=== PATIENT | female | born 1975 | race Hispanic/Latino ===

== ENCOUNTER 2017-06-01 18:06 | Inpatient (IN) | payer OTHER, SELFPAY ==
[2017-06-01] MEDS ORDERED: niCARdipine 20MG In NaCl 20 MG/200 ML BAG ONE (19:21)
[2017-06-01] MEDS ORDERED: diphenhydrAMINE 50 MG/ML VIAL ONE ×2 (19:21→20:20)
[2017-06-01] MEDS ORDERED: Metoclopramide HCl 10 MG/2 ML VIAL ONE (19:21)
[2017-06-01 19:28] LABS: #Eosinphils 0.3 thou/uL (0.0-0.7); #Lymphocytes 3.4 thou/uL (1.20-3.40); #Monocytes 0.7 thou/uL (0.11-0.59); #Neutrophils 7.6 thou/uL (1.40-6.50); %Basophils 0.4 % (0.0-1.0); %Eosinophils 2.7 % (0.0-10.0); %Lymphocytes 28.1 % (21.0-51.0); Hematocrit 34.8 % (36.0-47.0); Mean Platelet Volume 5.9 fL (7.4-10.4); Red Blood Cell (RBC) Count 3.85 mill/uL (4.20-5.40); White Blood Cell (WBC) Count 12.1 thou/uL (4.8-10.8)
[2017-06-01 19:35] LABS: PTT 27.8 SEC (22.9-36.1); Prothrombin Time 13.1 SEC (12.0-14.7)
[2017-06-01 19:52] LABS: ALT (SGPT) 20 U/L (8-55); AST (SGOT) 16 U/L (5-34); Alkaline Phosphatase 112 U/L (40-150); Anion Gap 11 mmol/L (10-20); BUN (Urea Nitrogen) 16 mg/dL (7.0-18.7); Bilirubin, Total 0.3 mg/dL (0.2-1.2); CK (CPK) 114 U/L (29-168); Calc. Creatinine Clearance 0 mL/min (70-130); Carbon Dioxide 28 mmol/L (22-29); Chloride 100 mmol/L (98-107); Estimated GFR-MDRD 63; Globulin 4.4 g/dL (2.4-3.5); Lipase 55 U/L (8-78); Protein, Total 8.5 g/dL (6.0-8.3)
[2017-06-01 19:55] LABS: Bilirubin Negative (Negative); Blood, Urine Large (Negative); Glucose, Urine (Dipstick) 500 mg/dL (Negative); Ketone, Urine Negative (Negative); Nitrite Negative (Negative); Protein, Urine (Dipstick) 100 mg/dL (Neg-Trace); Urobilinogen 0.2 mg/dL (0.2-1.0)
[2017-06-01 19:56] LABS: Bacteria/HPF 4+ HPF (None Seen); Hyaline Casts/LPF 0-3 HYALINE CAST LPF (0-3 Hyaline); RBC/HPF 21-50 HPF (0-3); Squamous Epithelial 0-3 HPF (0-3)
[2017-06-01 19:56] LABS: Troponin I Less than 0.010 ng/mL (< 0.028)
[2017-06-01] MEDS ORDERED: Fentanyl 100 MCG/2 ML VIAL ONE (20:19)
[2017-06-01] MEDS ORDERED: Dexamethasone 10 MG/ML VIAL ONE (20:20)
[2017-06-01] MEDS ORDERED: valACYclovir 500 MG TAB PO SCH (20:45)
--- NOTE | 2017-06-01 21:19 | CT ---
NONCONTRAST HEAD CT: HISTORY: Altered mental status. Right facial pain and numbness since Wednesday. COMPARISON: 01/31/2017 TECHNIQUE: A noncontrast head CT is performed from the skull base to the skull vertex. FINDINGS: No parenchymal hemorrhage. No extraaxial hematoma. No midline shift. The basilar cisterns are adam nt. Brain volume is age appropriate. Cortical rowan white matter differentiation is preserved. The ventricles and sulci are patent and symmetric. The calvarium is intact. Adequate aeration of the sinuses and mastoid air cells. IMPRESSION: No acute intracranial process. POS: [facility]
--- NOTE | 2017-06-01 21:22 | RAD ---
ONE VIEW CHEST: HISTORY: Altered mental status. Facial pain and droop. COMPARISON: 01/13/2015 FINDINGS: Normal cardiac silhouette. The pulmonary vessels and hilum are normal. No mass. No consolidation. No osseous abnormalities or pneumothorax. IMPRESSION: No acute cardiopulmonary process. POS: [facility]
--- NOTE | 2017-06-01 22:46 | PDOC.EVN ---
Event Note - Event Note Event Note: [id number] 1. TIA VS [place] palsy 2. HTN 3. H/O HPL 4. H/O DM type 2 plan: see orders
[2017-06-01] MEDS ORDERED: Ondansetron HCl/PF 4 MG/2 ML Vial IVP PRN (23:11)
[2017-06-01] MEDS ORDERED: hydrALAZINE 20 MG/ML VIAL SLOW IVP PRN (23:11)
[2017-06-01] MEDS ORDERED: Dextrose 5% in Water 1,000 ML IV PRN (23:13)
[2017-06-01] MEDS ORDERED: HumaLOG 300 UNITS/3 ML VIAL SC PRN (23:13)
[2017-06-01] MEDS ORDERED: Dextrose 50% Abboject 50 ML SYRINGE SLOW IVP PRN (23:13)
[2017-06-01] MEDS ORDERED: Sodium Chloride 0.9% 1,000 ML IV SCH (23:15)
[2017-06-02 01:44] VITALS: BMI 33.1
[2017-06-02] MEDS: HumaLOG 300 UNITS/3 ML VIAL SC PRN ×3 (05:56→17:09)
[2017-06-02] MEDS: Acetaminophen 325 MG TAB PO PRN ×3 (06:23→21:35)
--- NOTE | 2017-06-02 07:10 | HP ---
DATE OF ADMISSION: 06/01/2017 CHIEF COMPLAINT: Headache. HISTORY OF PRESENT ILLNESS: Patient is a 41-year-old female who came to the ER complaining of headache. Patient started having headache since Wednesday, headache got worse and the patient started having right-sided facial droop. The patient was having some trouble swallowing also and right side drooling also. Patient says she could not able to close her right eyelid also. Symptoms persisted, so she came to the ER, complaints of headache. Headache is all over mild in intensity, no aggravating or alleviating factors. Denies any nausea. Denies any vomiting. Complains of fatigue also. Denies any chest pain , denies any trouble breathing, denies any dizziness. PAST MEDICAL HISTORY: Hypertension, diabetes type 2, history of cervical CA. Denies any chemoradiation. PAST SURGICAL HISTORY: Hysterectomy. SOCIAL HISTORY: Denies smoking, denies alcohol, denies any drugs. ALLERGIES: Reviewed. REVIEW OF SYSTEMS: Constitutional: Denies any fever, denies any chills. Eyes : Positive for chronic decreased vision in the right eye, currently being followed by electrostatic paint operator. Positive for right eye drooping. Oral cavity: Denies any thrush. Neck: Denies any neck pain. Cardiovascular: Denies any chest pains, denies any palpitations. Respiratory system: Denies any cough, denies sputum production. Gastrointestinal: Denies nausea, vomiting. Cranial nerve system: Positive for headache. Positive for right side facial droop. Psychiatric: Denies anxiety. Integument: Denies any rash. All other review of systems are reviewed and are negative. PHYSICAL EXAMINATION: CONSTITUTIONAL/VITAL SIGNS: At the time of H&P performed, blood pressure is 196 /102, heart rate 81, respiratory rate 18. GENERAL: The patient appears tired. NECK: Supple, no JVD. CARDIOVASCULAR: S1, S2 present, regular rate and rhythm. No murmurs, no rubs, no gallops. RESPIRATORY: No wheezing, no rhonchi. GASTROINTESTINAL: Abdomen is soft, nontender, no guarding, no organomegaly, no masses felt. MUSCULOSKELETAL: No edema. CRANIAL NERVE SYSTEM: Positive for right-sided facial droop present. PSYCHIATRIC: Mood appropriate at this time. INTEGUMENT: No rashes seen. LABORATORY DATA: At the time of H&P performed white count 12.1, hemoglobin 12.3 , platelet count is 481. PT 13.1, INR 1. BMP shows sodium 135, potassium 3.9, chloride 100, CO2 is 28, BUN of 16, creatinine 0.98, albumin 4.1. CT head, no acute stroke seen. ASSESSMENT AND PLAN: The patient is 41-year-old female: 1. Right-sided facial droop need to rule out stroke versus Coronado's palsy. We will go ahead and consult Neurology to evaluate the patient. We will monitor the patient closely. We will do MRI brain and carotid ultrasound also and we will follow the patient. 2. History of hypertension. Monitor blood pressure. Continue blood pressure meds. 3. History of diabetes, type 2. Monitor blood sugars with insulin sliding scale. 4. Headache p.r.n. pain meds. Case was discussed in detail with the patient. The patient is FULL CODE. MTDD
[2017-06-02] MEDS ORDERED: FLU VACC QS2017-18 36 mo. & older 0.5 ML SYRINGE IM ONE (09:00)
[2017-06-02] MEDS ORDERED: ISOVUE-370 76%-LOCM 1 ML ONE (09:42)
--- NOTE | 2017-06-02 09:59 | ULT ---
ULTRASOUND CAROTID DOPPLER STANDARD: HISTORY: Evaluate for stenosis. COMPARISON: None. TECHNIQUE: Real-time, rowan scale, color Doppler, and spectral analysis of the extracranial carotid arteries and vertebral arteries were performed with a linear ray transducer. FINDINGS: Extensive atherosclerotic plaque of the proximal right internal carotid artery. There are elevated p eak systolic velocities proximally 157 cm/s, mid 135 cm/s, and distal 136 cm/s. Antegrade flow right vertebral artery. There is antegrade flow left vertebral artery. The left internal carotid artery does not have an elevated peak systolic velocity. IMPRESSION: 50-69% stenosis of the right internal carotid artery mid to distal. Followup CT angiogram is recomme nded. CODE T POS: [facility]
[2017-06-02] MEDS: Heparin 5,000 UNITS/ML VIAL SC SCH ×2 (10:29→21:37)
[2017-06-02] MEDS: Aspirin 81 mg Enteric Coated Tablet PO SCH (10:30)
--- NOTE | 2017-06-02 10:37 | MRI ---
MRI BRAIN WITHOUT CONTRAST: HISTORY: Altered mental status, right facial pain and numbness. Right eye blindness. FINDINGS: Correlation is made with the CT scan of the previous evening. No restricted diffusion is seen. No evidence of infarct, hemorrhage, midline shift, or abnormal extr aaxial fluid collections are noted. The ventricular size is normal and the basilar cisterns are adam nt. No signal abnormalities are seen on the highly sensitive FLAIR images. IMPRESSION: No evidence of acute intracranial process. POS: [facility]
[2017-06-02] MEDS: cloNIDine 0.1 MG TAB PO PRN ×2 (11:08→21:40)
--- NOTE | 2017-06-02 17:36 | PDOC.PN ---
- Subjective Encounter Start Date: 06/02/17 Encounter Start Time: 17:25 Subjective: f/u for facial asymmetry with initial concern for CVA. MRI brain neg. -: R facial droop persists and likely Ceja's Palsy. - Objective MAR Reviewed: Yes Vital Signs & Weight: Vital Signs (12 hours) Temp Pulse Pulse Pulse Resp BP BP 06/02/17 15:15 98.3 F 95 18 06/02/17 11:25 98.3 F 96 18 06/02/17 11:08 194/104 H 06/02/17 10:25 101 H 101 H 186/95 H 06/02/17 08:24 109 H 102 H 202/105 H 06/02/17 08:00 97.8 F 97 18 06/02/17 07:17 97.8 F 97 18 BP BP Pulse Ox 06/02/17 15:15 158/84 H 98 06/02/17 11:25 154/81 H 100 06/02/17 11:08 06/02/17 10:25 194/104 H 06/02/17 08:24 182/85 H 06/02/17 08:00 99 06/02/17 07:17 159/75 H 99 Weight Admit Weight 181 lb 3.2 oz Weight 181 lb 3.2 oz I&O: 06/01/17 06/02/17 06/03/17 06:59 06:59 06:59 Intake Total 988 Balance 988 Result Diagrams: 06/01/17 19:23 06/01/17 19:23 Additional Labs: Accuchecks 06/02/17 06/02/17 06/02/17 16:54 10:34 05:46 POC Glucose 424 H 371 H 542 H Radiology Reviewed by me: Yes (Carotid sono - R ICA mod stenosis) EKG Reviewed by me: Yes (Tele - SR ) Phys Exam - Physical Examination Constitutional: NAD HEENT: PERRLA, oral pharynx no lesions Neck: no nodes, no JVD, supple Respiratory: no wheezing, clear to auscultation bilateral Cardiovascular: RRR Gastrointestinal: soft, non-tender, no distention, positive bowel sounds Musculoskeletal: no edema, pulses present R facial asymmetry, loss nasolabial fold, minimal eyebrow movement R Neurological: normal sensation, moves all 4 limbs Psychiatric: A&O x 3 Skin: normal turgor, cap refill <2 seconds Dx/Plan (1) Ceja's palsy Code(s): G51.0 - CEJA'S PALSY Status: Acute Comment: House-Brackmann Stage IV-V, Prednisone 60mg daily, Valtrex 1000mg TID, R eye lubricant (2) DM (diabetes mellitus) type II controlled, neurological manifestation Code(s): E11.49 - TYPE 2 DIABETES W OTH DIABETIC NEUROLOGICAL COMPLICATION Status: Acute Comment: check A1C in am, resume home insulin regimen, ADA, accuchecks (3) Obesity (BMI 30.0-34.9) Code(s): E66.9 - OBESITY, UNSPECIFIED Status: Chronic (4) HLD (hyperlipidemia) Code(s): E78.5 - HYPERLIPIDEMIA, UNSPECIFIED Status: Chronic Comment: Statin agent for d/c (5) HTN (hypertension) Code(s): I10 - ESSENTIAL (PRIMARY) HYPERTENSION Status: Chronic Qualifiers: Hypertension type: essential hypertension Qualified Code(s): I10 - Essential (primary) hypertension Comment: Uncontrolled, resume home BP regimen and monitor clinically - Plan plan discussed w/ family, psych social worker, DVT proph w/SCDs Stable overall -: Start Prednisone 60mg daily -: Start Valtrex 1000mg TID -: Saline lock IVF -: Resume home insulin regimen * AM lab: A1C, TSH * Likely home in 24h
[2017-06-02] MEDS: HumaLOG 300 UNITS/3 ML VIAL SC SCH (17:42)
[2017-06-02] MEDS ORDERED: predniSONE 20 MG TAB PO SCH (17:45)
[2017-06-02] MEDS ORDERED: Atorvastatin Calcium 40 MG TAB PO SCH (21:00)
[2017-06-02] MEDS ORDERED: valACYclovir HCl 1 GM TAB PO SCH (21:00)
[2017-06-02] MEDS: valACYclovir 500 MG TAB PO SCH (21:35)
[2017-06-02] MEDS: Insulin Detemir 100 UNITS/ML 50 UNITS in Pre-Filled Syringe 1 EACH SC SCH (21:36)
--- NOTE | 2017-06-02 23:04 | CT ---
EXAM: CT ANGIOGRAM OF THE NECK 06/02/17 HISTORY: Abnormal carotid ultrasound. Possible carotid stenosis. COMPARISON: None. CORRELATION: Carotid artery 06/02/17, brain MRI 06/02/17. TECHNIQUE: CT angiogram of the neck is performed in the axial plane. Sagittal and coronal three dimensional refo rmatted images are submitted for interpretation. FINDINGS: The visualized brain parenchyma and orbits are unremarkable. Adequate aeration of the visualized sinuses and mastoid air cells. Aerodigestive tract is patent. There is no mucosal abnormality. Midline fatty raphae of the tongue is preserved. Epiglottis has a normal caliber. Pre-epiglottic fat is preserved. There is no prevertebral soft tissue swelling. No epidural hematoma. There is moderate central canal stenosis at the C3-C4 level due to disc osteophyte complex. Additional areas of central canal stenosi s are noted due to degenerative disc disease. Foramina appear to be patent. Evaluation is limited by technique. There is symmetric attenuation of the parotid and submandibular gland. Thyroid gland is unremarkable. No evidence of lymphadenopathy by size criteria. Symmetric attenuation of the sternocleidomastoid muscles. Upper mediastinum and lung apices are unremarkable. CT ANGIOGRAM: The aortic arch has an overall normal caliber and luminal diameter. RIGHT CAROTID: The right carotid artery origin has appropriate enhancement and luminal diameter. The innominate mally ry, common carotid artery have appropriate enhancement and luminal diameter. There is calcified and n oncalcified plaque involving the right carotid bifurcation and proximal internal carotid artery. Ther e appears to be short segment moderate stenosis based upon NASCET criteria. Mid and distal right inte rnal carotid artery have appropriate enhancement and luminal diameter. LEFT CAROTID: The left carotid artery origin has appropriate enhancement and luminal diameter. There is calcified a nd non calcified plaque in the distal left common carotid artery. No significant stenosis based upon NASCET criteria. Left internal carotid artery and left carotid bifurcation have appropriate enhanceme nt and luminal diameter. Both cervical vertebral arteries are patent throughout their course in the neck. Bilateral subclavian arteries are patent. IMPRESSION: Short segment moderate stenosis involving the right carotid bifurcation and proximal internal carotid artery, based upon NASCET criteria. POS: [facility]
[2017-06-02] MEDS: Valproate Sodium 500 MG in Sodium Chloride 0.9% 100 ML IVPB SCH (23:49)
[2017-06-03 04:25] LABS: Hemoglobin A1c 7.8 % (4.0-6.0)
--- NOTE | 2017-06-03 05:57 | CON ---
DATE OF CONSULTATION: 06/02/2017 REFERRING PROVIDER: Melchor Wahl MD REASON FOR CONSULTATION: Left-sided facial numbness and left facial droop along with severe headache . HISTORY OF PRESENT ILLNESS: Ms. Shelton is a pleasant 41-year-old female who has been co nsulted for evaluation of left facial numbness and weakness. History has been translated by one of t nursing staff who speaks Kinyarwanda. The patient is not even speaking Kinyarwanda. The patient reports that on yesterday she developed severe headache in bifrontal region radiating to the back of the head . She also noted numbness and tingling on the left side of the face as well as left eye blurry visio n. She also developed left facial droop, which prompted her to come to the [facility] for further evaluation. She states that she does have a history of migraine type headaches. She re ports her numbness and facial droop is much improved; however, she continues to have headache. She d enies tinnitus, hearing changes, lightheadedness, dizziness, vertigo, neck pain, chest pain, or palpi tations. PAST MEDICAL HISTORY: Significant for hypertension, diabetes, history of cervical cancer. PAST SURGICAL HISTORY: Significant for hysterectomy. SOCIAL HISTORY: She denies smoking, alcohol use, or illicit drug use. CURRENT MEDICATIONS: Please review MAR. ALLERGIES: Include MORPHINE. REVIEW OF SYSTEMS: As mentioned in the HPI, otherwise negative. PHYSICAL EXAMINATION: VITAL SIGNS: Blood pressure of 158/84, pulse of 95, temperature of 98.3, respirations of 18, O2 sats of 98% on room air. GENERAL: Well-developed, well-nourished female, in no apparent distress. RESPIRATORY: Clear to auscultation bilaterally. CARDIOVASCULAR: Regular rate and rhythm. NEUROLOGIC: Mental status: The patient is awake, alert, oriented x3. Speech and language: Fluent speech. Cranial nerves: Pupils are 3 mm and reactive. Visual ordonez are intact. External muscles are intact. No nystagmus noted. Face is symmetric. Tongue and uvula are midline. Motor exam showe d normal tone and bulk with 5/5 strength in both upper and lower extremities. Sensory: Sensation is intact and symmetric. Deep tendon reflexes 2+ reflexes in both upper and lower extremities. Babins ki: Plantar responses flexion bilaterally. Coordination intact to [id number] and finger tap ping bilaterally. LABORATORY DATA: I reviewed, which included CBC, coag panel, CMP, lipid profile, and urinalysis, [facility] is significant for WBC of 12.1, platelets 481. Glucose of 405. Sodium of 135, total cholesterol of 224, LDL of 148, HDL of 42, and triglycerides of 142, otherwise negative. IMAGING STUDIES: MRI brain without contrast was reviewed, which showed no acute intracranial abnorma lity. Carotid Dopplers also reviewed, which showed 50% to 69% stenosis of the right internal carotid artery. Echocardiogram results were reviewed, which showed an ejection fraction of 60% to 65% with mildly elevated pulmonary artery pressure and mild tricuspid regurgitation, otherwise normal. IMPRESSION: 1. Hypertensive urgency. 2. Possible complicated migraine. Ms. Shelton is a pleasant 41-year-old female who presented with the left-sided facial num bness and weakness along with headache and blurry vision. Her blood pressure was noted to be signifi cantly elevated on arrival. Her symptoms may have been suggestive of hypertensive urgency. This cou ld also be seen in complicated migraine. I will give her a dose of Depacon 500 mg IV every 12 hours for 2 doses to see if that help to improves her headaches and paresthesia on the left side of the fac e. Her carotid Dopplers did show 50% to 69% stenosis of the right for which I want to obtain a CT angiogram of the neck. If the CT angiogram of the neck shows right internal carotid artery steno sis less than 50%, then no further workup is needed. She would benefit from aspirin 81 mg daily for secondary stroke prevention. The patient can be seen as an outpatient in my clinic if her symptoms a re not improving. Thank you for your consultation.
[2017-06-03] MEDS: HumaLOG 300 UNITS/3 ML VIAL SC PRN (06:24)
[2017-06-03] MEDS ORDERED: predniSONE 20 MG TAB PO SCH (08:00)
[2017-06-03 08:14] VITALS: BP 159/81; TEMP 98.4
[2017-06-03] MEDS: Insulin Detemir 100 UNITS/ML 50 UNITS in Pre-Filled Syringe 1 EACH SC SCH (09:53)
[2017-06-03] MEDS: valACYclovir 500 MG TAB PO SCH (09:54)
[2017-06-03] MEDS: HumaLOG 300 UNITS/3 ML VIAL SC SCH (09:54)
[2017-06-03] MEDS: Heparin 5,000 UNITS/ML VIAL SC SCH (09:54)
[2017-06-03] MEDS: Aspirin 81 mg Enteric Coated Tablet PO SCH (09:55)
[2017-06-03] MEDS: Valproate Sodium 500 MG in Sodium Chloride 0.9% 100 ML IVPB SCH (09:56)
--- NOTE | 2017-06-03 10:47 | DIS ---
DATE OF ADMISSION: 06/02/2017 DATE OF DISCHARGE: 06/03/2017 DISCHARGE DIAGNOSES: 1. 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 2. Diabetes mellitus type 2, insulin requiring, labile. 3. Hyperlipidemia. 4. Hypertension. 5. Morbid obesity. CONSULTATION: Dr. Halina Henson with Neurology Service. PERTINENT LABORATORY DATA AND X-RAY FINDINGS: Basic metabolic profile within normal limits. Hemoglo bin A1c is 7.8. LFTs within normal limits. BNP 59, albumin 4.1, total cholesterol 224, triglyceride s 142, HDL 42, and LDL 148. Lipase 55. TSH 0.82. Serum beta-hCG negative on 06/02/2017. CBC showe d a white blood cell count of 12.1, hemoglobin 12, hematocrit 35, platelet count 481. PT 13.1, INR 1 .0, PTT 27.8. CT of the brain without contrast showed no acute intracranial process. Portable chest x-ray dated 06/01/2017 showed no acute cardiopulmonary process. MRI of the brain dated 06/02/2017 s howed no acute intracranial process. A 2D transthoracic echocardiogram dated 06/02/2017 showed an ej ection fraction of 60%-65%. Negative study. CT angiogram of the neck dated 06/02/2017 showed modera te stenosis of the right carotid bifurcation and proximal internal carotid artery. Carotid Doppler s tudy dated 06/02/2017 showed 50%-69% stenosis of the right internal carotid artery. HOSPITAL COURSE: Patient was admitted to the stroke unit after initially presenting with right-sided facial droop with some associated headache and difficulty swallowing. The patient underwent general stroke protocol including multiple neuro imaging studies showing no acute intracranial process or ev idence of CVA. The patient persisted with right-sided facial droop concerning for Coronado's palsy. The patient was initiated on prednisone 60 mg daily in addition to Valtrex 1000 mg p.o. t.i.d. The gabriela ent was evaluated by the Neurology Service with recommendations for a trial of Depacon after concern for complicated migraine component. The patient continued with right facial asymmetry throughout the hospital course without significant improvement by the time of discharge. The patient was initiated on aspirin 81 mg daily for secondary stroke prevention given patient's multiple risk factors includi ng diabetes mellitus type 2, hypertension, and hyperlipidemia. Overall, the patient remained clinica lly stable through the remainder of the hospital course and ready for discharge on 06/03/2017. DISCHARGE MEDICATIONS: 1. Enteric coated aspirin 81 mg 1 tablet p.o. daily. 2. Lipitor 40 mg p.o. at bedtime. 3. Levemir 50 units subcutaneously b.i.d. 4. NovoLog 10 units subcutaneously b.i.d. 5. Prednisone 20 mg 3 tablets p.o. daily x3 days, followed by 2 tablets p.o. daily x3 days, followed by 1 tablet p.o. daily x3 days. 6. Valtrex 1000 mg p.o. t.i.d. x7 days. FOLLOWUP: The patient may follow up with her primary care provider, Marcia Rai within 7 days. T he patient will follow up with Dr. Halina Henson with Neurology Service within 7 days. CONDITION ON DISCHARGE: Stable. ACTIVITY: Ad pascual. DIET: Heart healthy and ADA. CODE STATUS: FULL. DISPOSITION: Home on 06/03/2017. Total time preparing and coordinating discharge is 34 minutes.
--- NOTE | 2017-06-21 13:54 | EKG ---
Test Reason : HTN Blood Pressure : / mmHG Vent. Rate : 105 BPM Atrial Rate : 105 BPM P-R Int : 148 ms QRS Dur : 080 ms QT Int : 348 ms P-R-T Axes : 047 017 032 degrees QTc Int : 459 ms Sinus tachycardia Anterior infarct , age undetermined Abnormal ECG Confirmed by SERGEY GARCIA, DEANNA (12), film editor supervisor EMIR GIL ([id number]) on 06/21/2017 1:52:39 PM Referred By: Confirmed By:DEANNA RINCON MD
== END 2017-06-03 11:48 | disposition home or self-care (01) | DRG 74 ==
LOC: ERS 18:06 → 2SE 06-02 00:11
PROVIDERS: ADMIT Internal Medicine; ATTEND Internal Medicine
DX: G51.0 Bell's palsy (principal); E11.49 Type 2 diabetes mellitus with other diabetic neurological complication; E66.01 Morbid (severe) obesity due to excess calories; I16.0 Hypertensive urgency; I10 Essential (primary) hypertension; Z79.4 Long term (current) use of insulin; E78.5 Hyperlipidemia, unspecified; Z68.33 Body mass index [BMI] 33.0-33.9, adult; G43.109 Migraine with aura, not intractable, without status migrainosus; I65.21 Occlusion and stenosis of right carotid artery
CPT/HCPCS: 36415; 36416; 70450; 70498; 70551; 71010; 80053; 80061; 81003; 81015; 82553; 83036; 83690; 83880; 84443; 84484; 84703; 85025; 85610; 85730; 93005; 93306; 93880; 96365; 96368; 96375; 96376; G8978-GP-CI; G8979-GP-CI; G8980-GP-CI; G8987-GO-CI; G8988-GO-CI; G8989-GO-CI; G8996-GN-CI; G8997-GN-CI; J1100; J1200; J1644; J1815; J2765; J3010; J7050; J7506

== ENCOUNTER 2017-09-28 01:50 | Emergency (ER) | payer SELFPAY ==
[2017-09-28] MEDS ORDERED: Sucralfate 1 GM/10 ML UDCUP ONE (02:48)
[2017-09-28] MEDS ORDERED: Milk Of Magnesia 30 ML UDCUP ONE (02:48)
[2017-09-28] MEDS ORDERED: Ondansetron ODT 4 MG TAB ONE (02:48)
[2017-09-28] MEDS ORDERED: Famotidine 20 MG TAB ONE (02:48)
[2017-09-28] MEDS ORDERED: Lidocaine 2% Viscous Solution 10 ML, Aluminum & Magnesium Hydroxide 20 ML, Donnatal Eli... SSW SCH (03:00)
[2017-09-28 03:17] LABS: #Basophils 0.1 thou/uL (0.0-0.2); #Eosinphils 0.3 thou/uL (0.0-0.7); #Lymphocytes 3.4 thou/uL (1.20-3.40); #Monocytes 0.8 thou/uL (0.11-0.59); #Neutrophils 7.5 thou/uL (1.40-6.50); %Basophils 0.7 % (0.0-1.0); %Eosinophils 2.7 % (0.0-10.0); %Lymphocytes 28.2 % (21.0-51.0); %Monocytes 6.4 % (0.0-10.0); Hemoglobin 11.7 g/dL (12.0-16.0); Mean Corpuscular HGB CONC 35.7 g/dL (32.0-36.0); Mean Corpuscular Hemoglobin 31.1 pg (27.0-31.0); Mean Corpuscular Volume 87.1 fl (81.0-99.0); Mean Platelet Volume 5.9 fL (7.4-10.4); Platelet Count 473 thou/uL (130-400); RBC Distribution Width 11.1 % (11.5-14.5); Red Blood Cell (RBC) Count 3.76 mill/uL (4.20-5.40)
[2017-09-28 03:29] LABS: BHCG - Serum Negative (NEGATIVE); Pregs Control Background? CLEAR/WHITE (CLR/WHITE); Pregs Control Bar Appear? YES (CONTROL BAR)
[2017-09-28 03:38] LABS: ALT (SGPT) 13 U/L (8-55); AST (SGOT) 12 U/L (5-34); Albumin 3.8 g/dL (3.5-5.0); Alkaline Phosphatase 85 U/L (40-150); Anion Gap 10 mmol/L (10-20); BUN (Urea Nitrogen) 18 mg/dL (7.0-18.7); Bilirubin, Total 0.3 mg/dL (0.2-1.2); CK (CPK) 125 U/L (29-168); Calc. Creatinine Clearance 0 mL/min (70-130); Calcium 9.4 mg/dL (7.8-10.44); Carbon Dioxide 26 mmol/L (22-29); Chloride 103 mmol/L (98-107); Estimated GFR-MDRD 74; Globulin 3.4 g/dL (2.4-3.5); Glucose 108 mg/dL (70-105); Lipase 46 U/L (8-78); Potassium 4.2 mmol/L (3.5-5.1); Protein, Total 7.2 g/dL (6.0-8.3); Sodium 135 mmol/L (136-145)
[2017-09-28 03:41] LABS: CKMB 1.1 ng/mL (0-6.6); Troponin I Less than 0.010 ng/mL (< 0.028)
--- NOTE | 2017-10-29 14:58 | EKG ---
Test Reason : Blood Pressure : / mmHG Vent. Rate : 083 BPM Atrial Rate : 083 BPM P-R Int : 140 ms QRS Dur : 076 ms QT Int : 376 ms P-R-T Axes : 016 012 030 degrees QTc Int : 441 ms Normal sinus rhythm Normal ECG Confirmed by SERGEY GARCIA, DEANNA (12), news editor EMIR GIL ([id number]) on 10/29/2017 2:57:28 PM Referred By: Confirmed By:DEANNA RINCON MD
== END 2017-09-28 04:20 | disposition home or self-care (01) ==
LOC: ERS 01:50
DX: K21.0 Gastro-esophageal reflux disease with esophagitis (principal); E11.9 Type 2 diabetes mellitus without complications; Z79.899 Other long term (current) drug therapy; Z85.41 Personal history of malignant neoplasm of cervix uteri
CPT/HCPCS: 36415; 80053; 82553; 83690; 84484; 84703; 85025; 93005; Q0162

== ENCOUNTER 2018-02-15 15:38 | Emergency (ER) | payer SELFPAY ==
[2018-02-15 16:36] LABS: #Eosinphils 0.1 thou/uL (0.0-0.7); #Lymphocytes 1.7 thou/uL (1.20-3.40); #Monocytes 0.5 thou/uL (0.11-0.59); #Neutrophils 6.2 thou/uL (1.40-6.50); %Basophils 0.6 % (0.0-1.0); %Eosinophils 0.9 % (0.0-10.0); %Lymphocytes 19.9 % (21.0-51.0); %Monocytes 5.8 % (0.0-10.0); %Neutrophils 72.9 % (42.0-75.0); Hemoglobin 10.7 g/dL (12.0-16.0); Mean Corpuscular HGB CONC 36.7 g/dL (32.0-36.0); Mean Corpuscular Hemoglobin 32.5 pg (27.0-31.0); Mean Corpuscular Volume 88.5 fL (78.0-98.0); Platelet Count 389 thou/uL (130-400); RBC Distribution Width 11.1 % (11.5-14.5); Red Blood Cell (RBC) Count 3.29 mill/uL (4.20-5.40); White Blood Cell (WBC) Count 8.5 thou/uL (4.8-10.8)
[2018-02-15 16:57] LABS: ALT (SGPT) 309 U/L (8-55); AST (SGOT) 499 U/L (5-34); Albumin 3.6 g/dL (3.5-5.0); Alkaline Phosphatase 189 U/L (40-150); Anion Gap 11 mmol/L (10-20); BUN (Urea Nitrogen) 19 mg/dL (7.0-18.7); Bilirubin, Total 0.5 mg/dL (0.2-1.2); Calc. Creatinine Clearance 0 mL/min (70-130); Calcium 8.8 mg/dL (7.8-10.44); Carbon Dioxide 27 mmol/L (22-29); Chloride 102 mmol/L (98-107); Estimated GFR-MDRD 58; Globulin 3.4 g/dL (2.4-3.5); Glucose 287 mg/dL (70-105); Lipase 87 U/L (8-78); Sodium 136 mmol/L (136-145)
[2018-02-15 18:14] LABS: Bilirubin Negative (Negative); Blood, Urine Moderate (Negative); Clarity CLOUDY (Clear); Glucose, Urine (Dipstick) 250 mg/dL (Negative); Leukocyte Moderate (Negative); Nitrite Negative (Negative); Protein, Urine (Dipstick) 100 mg/dL (Neg-Trace); Specific Gravity, Urine 1.039 (1.002-1.036)
[2018-02-15] MEDS ORDERED: Ondansetron ODT 4 MG TAB ONE (18:14)
[2018-02-15] MEDS ORDERED: Dicyclomine 20 MG TAB ONE (18:14)
[2018-02-15 18:16] LABS: Bacteria/HPF 4+ HPF (None Seen); Hyaline Casts/LPF 0-3 HYALINE CAST LPF (0-3 Hyaline); WBC/HPF 21-50 HPF (0-3)
[2018-02-15 18:17] LABS: Pregnancy Test - Urine (BHCG) Negative (Negative); Pregu Control Background? CLEAR/WHITE (CLR/WHITE); Pregu Control Bar Appear? YES (CONTROL BAR); Specific Gravity 1.039 (1.002-1.036)
--- NOTE | 2018-02-15 18:26 | RAD ---
CHEST ONE VIEW: 02/15/18 HISTORY: Nausea and vomiting. COMPARISON: Chest radiograph 06/01/17. FINDINGS: The lungs are clear. No pneumothorax or effusion. The cardiac silhouette and mediastinal contours are within normal limits. IMPRESSION: No acute intrathoracic abnormality. POS: [facility]
[2018-02-15 18:47] LABS: CKMB 1.2 ng/mL (0-6.6); Troponin I Less than 0.010 ng/mL (< 0.028)
--- NOTE | 2018-02-15 21:28 | ULT ---
ULTRASOUND GALLBLADDER RIGHT UPPER QUADRANT 02/15/18 HISTORY: Abdominal pain. Right upper quadrant pain. COMPARISON: None. TECHNIQUE: Real time rowan scale and color evaluation of the right upper quadrant of the abdomen was performed. FINDINGS: The visualized portions of the pancreatic body is unremarkable. Mild increased hepatic echotexture. L iver measures 15 cm in length. Portal vein is patent with antegrade flow. Common bile duct measures 4 mm. Gallbladder wall thickness is normal. There appears to be stones throughout the contracted gallbladde r. Sonographic Pope's sign is negative. The right kidney measures 10.5 x 5.3 x 4.1 cm without mass, hydronephrosis or abnormal calcifications . IMPRESSION: Cholelithiasis without ultrasound evidence of acute cholecystitis. POS: [facility]
== END 2018-02-15 21:30 | disposition home or self-care (01) ==
LOC: ERS 15:38
DX: K80.20 Calculus of gallbladder without cholecystitis without obstruction (principal); R79.89 Other specified abnormal findings of blood chemistry; E11.9 Type 2 diabetes mellitus without complications
CPT/HCPCS: 36415; 71045; 76705; 80053; 81003; 81015; 81025; 82553; 83690; 84484; 85025; 93005; Q0162

== ENCOUNTER 2018-05-20 04:01 | Observation (INO) | payer SELFPAY ==
[2018-05-20 04:30] LABS: #Eosinphils 0.2 thou/uL (0.0-0.7); #Lymphocytes 2.8 thou/uL (1.20-3.40); #Monocytes 0.7 thou/uL (0.11-0.59); #Neutrophils 7.3 thou/uL (1.40-6.50); %Basophils 0.4 % (0.0-1.0); %Eosinophils 1.9 % (0.0-10.0); %Lymphocytes 25.7 % (21.0-51.0); %Monocytes 6.2 % (0.0-10.0); %Neutrophils 65.8 % (42.0-75.0); Hemoglobin 12.2 g/dL (12.0-16.0); Mean Corpuscular HGB CONC 34.9 g/dL (32.0-36.0); Mean Corpuscular Hemoglobin 30.7 pg (27.0-31.0); Mean Corpuscular Volume 88.1 fL (78.0-98.0); Mean Platelet Volume 6.4 fL (7.4-10.4); Platelet Count 549 thou/uL (130-400); RBC Distribution Width 10.8 % (11.5-14.5); Red Blood Cell (RBC) Count 3.97 mill/uL (4.20-5.40)
[2018-05-20] MEDS ORDERED: Famotidine/PF 20 mg/2ml Vial ONE ×2 (04:38→12:30)
[2018-05-20] MEDS ORDERED: Ondansetron PF 4 MG/2 ML Vial ONE ×2 (04:38→13:14)
[2018-05-20 04:52] LABS: ALT (SGPT) 22 U/L (8-55); AST (SGOT) 42 U/L (5-34); Alkaline Phosphatase 94 U/L (40-150); Anion Gap 12 mmol/L (10-20); BUN (Urea Nitrogen) 22 mg/dL (7.0-18.7); Bilirubin, Total 0.3 mg/dL (0.2-1.2); Calc. Creatinine Clearance 0 mL/min (70-130); Calcium 9.5 mg/dL (7.8-10.44); Carbon Dioxide 24 mmol/L (22-29); Chloride 102 mmol/L (98-107); Estimated GFR-MDRD 54; Glucose 115 mg/dL (70-105); Lipase 86 U/L (8-78); Potassium 4.2 mmol/L (3.5-5.1); Sodium 134 mmol/L (136-145)
[2018-05-20 05:05] LABS: CKMB 1.1 ng/mL (0-6.6); Troponin I Less than 0.010 ng/mL (< 0.028)
[2018-05-20] MEDS ORDERED: hydrALAZINE 20 MG/ML VIAL ONE (05:30)
[2018-05-20] MEDS ORDERED: Fentanyl 100 MCG/2 ML VIAL ONE ×4 (05:30→14:13)
[2018-05-20] MEDS ORDERED: Dextrose 5 %-0.45 % NaCl 1,000 ML IV SCH (06:00)
[2018-05-20] MEDS ORDERED: Fentanyl 100 MCG/2 ML VIAL SLOW IVP PRN ×2 (08:18)
[2018-05-20] MEDS ORDERED: Dextrose 5% in Water 1,000 ML IV PRN ×2 (08:20→14:46)
[2018-05-20] MEDS ORDERED: Dextrose 50% Abboject 50 ML SYRINGE SLOW IVP PRN ×2 (08:20→14:46)
[2018-05-20] MEDS ORDERED: Ondansetron PF 4 MG/2 ML Vial IVP PRN (08:20)
--- NOTE | 2018-05-20 09:34 | RAD ---
PORTABLE CHEST: HISTORY: Left-sided chest pain. COMPARISON: 02/15/2018 study. FINDINGS: Heart size and mediastinum are within normal limits. The lungs are clear of infiltrates. No bony fi ndings. IMPRESSION: No active intrathoracic disease. POS: [facility]
--- NOTE | 2018-05-20 09:36 | ULT ---
PRELIMINARY REPORT/[facility]/EMERGENTY AFTER-HOURS PROCEDURE US Abdomen Limited, Right Upper Quadrant EXAM DATE/TIME: 05/20/2018 4:54 AM CLINICAL HISTORY: 42 years old, female; Pain and signs and symptoms; Nausea and vomiting; Abdominal pain; Localized; Ri ght upper quadrant (ruq); Patient HX: Ruq pain - radiates to back TECHNIQUE: Real-time ultrasound of the abdomen with image documentation. Examination was focused on the right up per quadrant. COMPARISON: No relevant prior studies available. FINDINGS: Liver: Liver demonstrates fatty infiltration without visible focal mass. Gallbladder: Gallbladder demonstrates stones but is without wall thickening or pericholecystic fluid. Common bile duct: 6 mm. No stones. Pancreas: Visualized pancreas is unremarkable. Right kidney: Mild pelviectasis. No mass. No hydronephrosis. IMPRESSION: Cholelithiasis without other findings of cholecystitis. Fatty liver. Mild right renal pelviectasis. No visible stone. Thank you for allowing us to participate in the care of your patient. Dictated and Authenticated by: Tim Reynoso MD 05/20/2018 5:21 AM Central Time ([place] & [place]) FINAL REPORT SONOGRAM RIGHT UPPER QUADRANT: DATE: 05/20/2018. TIME: Performed on an emergency basis at 0455 hours. HISTORY: Right upper quadrant pain. FINDINGS: Agree with the preliminary report by Dr. Reynoso from [facility]. Gallstones are confirmed w ithout sonographic evidence of acute cholecystitis. There is minimal distention of the calyces of th e right kidney. POS: [facility]
[2018-05-20] MEDS ORDERED: CEFAZOLIN 2 GM/50 ML BAG ONE (10:58)
[2018-05-20] MEDS ORDERED: Bupivacaine/Epinephrine 0.25% 30 ML VIAL ONE (12:29)
[2018-05-20] MEDS ORDERED: Iothalamate Meglumine 60% 50 ML VIAL FS ONE (13:01)
[2018-05-20] MEDS ORDERED: Lidocaine 1% PF 5 ML VIAL ONE (13:14)
[2018-05-20] MEDS ORDERED: Metoclopramide HCl 10 MG/2 ML VIAL ONE (13:14)
[2018-05-20] MEDS ORDERED: Glycopyrrolate 0.2 MG/ML 5 ML SYRINGE ONE (13:14)
[2018-05-20] MEDS ORDERED: PROPOFOL 200 MG/20 ML VIAL ONE (13:14)
[2018-05-20] MEDS ORDERED: Ketorolac Tromethamine 30 MG/ML VIAL ONE (13:14)
[2018-05-20] MEDS ORDERED: Promethazine HCl 25 MG/ML VIAL SLOW IVP PRN (13:38)
[2018-05-20] MEDS ORDERED: Promethazine HCl 25 MG/ML VIAL IM PRN ×2 (13:38→14:46)
[2018-05-20] MEDS ORDERED: Ondansetron HCl/PF 4 MG/2 ML Vial IVP PRN (13:38)
--- NOTE | 2018-05-20 14:01 | OP ---
DATE OF PROCEDURE: 05/20/2018 PREOPERATIVE DIAGNOSIS: Acute cholecystitis. POSTOPERATIVE DIAGNOSIS: Acute cholecystitis. PROCEDURE PERFORMED: Laparoscopic cholecystectomy with intraoperative cholangiogram. SURGEON: Teddy Esposito M.D. ANESTHESIA: General. ESTIMATED BLOOD LOSS: Minimal. COMPLICATIONS: None. SPECIMEN: Gallbladder. FINDINGS: Normal cholangiogram. TECHNIQUE: The patient was taken to the operating room and placed supine on the table. After genera l anesthetic was obtained, the abdomen is prepped and draped in a sterile fashion. Incision was made above the umbilicus. Cautery was used to dissect down to and score the fascia. Abdominal cavity en tered bluntly using a Rosette clamp. Holding stitch of PDS was placed on each side of the fascia. Has sandoval trocar was placed. High-flow pneumoperitoneum was obtained. An upper midline 5 mm port and 2 ri ght upper quadrant 5 mm port was placed under direct visualization. Gallbladder was retracted from g allbladder fossa. Peritoneum was opened anterior and posteriorly. The critical view triangle was se en showing only the cystic duct and cystic artery branching medial to lateral, no other branching str uctures. A clip was placed high on the cystic duct and a small ductotomy was made just proximal to t hat. Cholangiocatheter was brought in through a separate stab incision, placed in the cystic duct an d a cholangiogram was performed which shows good contrast flow into the duodenum, right and left hepa tic duct system without obstruction. The cholangiocatheter was removed and 2 clips were placed proxi waldemar on the cystic duct and it was cut using laparoscopic scissors. Cystic artery was taken using t wo clips proximal, one clip distally, and cut using laparoscopic scissors. Cautery was used to disse ct the gallbladder out of the gallbladder fossa. Gallbladder was placed in an Endo catch bag and bro ught out through the Munoz. There was no bleeding in the liver bed. All port sites were infiltrate d using local anesthetic. All ports were removed under camera visualization without bleeding. Pneum operitoneum was let down. PDS was used to close the fascial defect above the umbilicus. All incisio ns were irrigated and closed using 4-0 Monocryl and Dermabond. The patient was en route to recovery in stable condition. All instrument counts, needle counts, and lap counts were correct.
[2018-05-20] MEDS ORDERED: Mag-Al 1200 mg/1200 mg/30 ML UDCUP PO PRN (14:46)
[2018-05-20] MEDS ORDERED: Calcium Carbonate 500 MG ChewTAB PO PRN (14:46)
[2018-05-20] MEDS ORDERED: traMADol HCl 50 MG TAB PO PRN (14:46)
[2018-05-20] MEDS ORDERED: hydrALAZINE 20 MG/ML VIAL SLOW IVP PRN (14:46)
--- NOTE | 2018-05-20 14:50 | HP ---
DATE OF ADMISSION: 05/20/2018 CHIEF COMPLAINT: Right upper quadrant pain. HISTORY OF PRESENT ILLNESS: This is a 42-year-old female with a history of insulin-dependent diabete s who presents with severe pain in the right upper quadrant, described as 8/10 and sharp, radiates ar ound to her right back. This is her third episode she has been coming to the ER for these symptoms, associated with nausea, no vomiting, no change in stools. No history of jaundice or pancreatitis. PAST MEDICAL HISTORY: Includes insulin-dependent diabetes. PAST SURGICAL HISTORY: Hysterectomy. MEDICINES TAKEN DAILY: Insulin. ALLERGIES: MORPHINE, HYDROCODONE. SOCIAL HISTORY: No smoking, alcohol or other drugs. REVIEW OF SYSTEMS: Ten system review of systems otherwise negative unless described above. PHYSICAL EXAMINATION: HEENT: Sclerae are anicteric. Oropharynx clear. NECK: No lymphadenopathy. CHEST: Clear. HEART: Regular rate and rhythm. ABDOMEN: Soft, tender in the right upper quadrant, localized guarding, no rebound, no abdominal or i nguinal hernias. EXTREMITIES: No ischemia or edema to extremities. LABORATORY AND X-RAY FINDINGS: White cell count is 11, hemoglobin is 12, platelet count is 549,000. Sodium 134, potassium is 4.2, creatinine 1.12. Liver function tests are normal except for AST of 42 . IMAGING: Ultrasound shows gallstones, common bile duct 6 mm. ASSESSMENT: Acute cholecystitis. PLAN: Laparoscopic cholecystectomy. Risks, benefits and alternatives discussed. She gives consent. We will do this today.
--- NOTE | 2018-05-20 14:53 | RAD ---
TWO VIEWS FROM AN INTRAOPERATIVE CHOLANGIOGRAM: INDICATION: Cholecystectomy. FINDINGS: Total fluoroscopic time was 0.07 seconds. Total exposure was 1.59 gm. The 2 submitted images demons trate contrast opacification of the right and left intrahepatic bowel duct, common hepatic duct, and common bile duct without evidence of intraluminal filling defect. There is contrast flowing into the duodenum. IMPRESSION: No evidence to suggest retained stone within the common bile duct. Contrast is free flowing within t he duodenum. POS: [facility]
[2018-05-20] MEDS: Sodium Chloride 0.9% 1,000 ML IV SCH (16:06)
[2018-05-20 17:15] VITALS: BMI 30.4
[2018-05-20] MEDS: Ondansetron PF 4 MG/2 ML Vial IVP PRN (17:42)
[2018-05-20] MEDS: HumaLOG 300 UNITS/3 ML VIAL SC PRN (17:47)
[2018-05-20] MEDS: Famotidine/PF 20 mg/2ml Vial SLOW IVP SCH (21:58)
[2018-05-20] MEDS: Famotidine 20 MG TAB PO SCH (21:58)
[2018-05-21] MEDS: Sodium Chloride 0.9% 1,000 ML IV SCH (05:56)
[2018-05-21] MEDS: HumaLOG 300 UNITS/3 ML VIAL SC PRN (06:11)
[2018-05-21] MEDS: Ondansetron PF 4 MG/2 ML Vial IVP PRN (06:11)
[2018-05-21] MEDS: Famotidine/PF 20 mg/2ml Vial SLOW IVP SCH (08:18)
[2018-05-21] MEDS: Famotidine 20 MG TAB PO SCH (08:18)
[2018-05-21 09:10] VITALS: BP 148/85; TEMP 98
--- NOTE | 2018-05-21 09:13 | DIS ---
DATE OF ADMISSION: 05/20/2018 DATE OF DISCHARGE: 05/21/2018 ADMISSION DIAGNOSES: Acute cholecystitis and insulin-dependent diabetes. DISCHARGE DIAGNOSES: Acute cholecystitis and insulin-dependent diabetes. PROCEDURES: Laparoscopic cholecystectomy with intraoperative cholangiogram by Dr. Esposito without co mplication. CONDITION AT DISCHARGE: Improved. HOSPITAL COURSE: On postop day #1, the patient is doing well. She is tolerating diabetic diet. Her pain is controlled. She is discharged home. She will follow up with me in 2 weeks.
--- NOTE | 2018-05-28 15:29 | EKG ---
Test Reason : Blood Pressure : / mmHG Vent. Rate : 088 BPM Atrial Rate : 088 BPM P-R Int : 144 ms QRS Dur : 078 ms QT Int : 350 ms P-R-T Axes : 008 014 022 degrees QTc Int : 423 ms Normal sinus rhythm Normal ECG Confirmed by ANATOLY LOVETT DO ([id number]), field map editor EMIR GIL ([id number] on 05/28/2018 3:28:46 PM Referred By: Confirmed By:ANATOLY LOVETT DO
== END 2018-05-21 09:20 | disposition home or self-care (01) ==
LOC: ERS 04:01 → SURG B 06:00
PROVIDERS: ADMIT Surgery; ATTEND Surgery
PROC: 0FT44ZZ Resection of Gallbladder, Percutaneous Endoscopic Approach (ICD-10-PCS; principal; 2018-05-20)
PROC: BF131ZZ Fluoroscopy of Gallbladder and Bile Ducts using Low Osmolar Contrast (ICD-10-PCS; 2018-05-20)
DX: K80.12 Calculus of gallbladder with acute and chronic cholecystitis without obstruction (principal); E11.9 Type 2 diabetes mellitus without complications; I10 Essential (primary) hypertension; Z79.4 Long term (current) use of insulin; Z79.899 Other long term (current) drug therapy; Z88.5 Allergy status to narcotic agent
CPT/HCPCS: 36416; 47532; 71045; 76705; 80053; 82553; 83690; 84484; 85025; 88304; 93005; 96361; 96374; 96375; 96376; G0378; J0131; J0360; J1885; J2001; J2405; J2704; J2765; J3010; Q9961; S0028

== ENCOUNTER 2018-08-30 17:48 | Emergency (ER) | payer SELFPAY ==
[2018-08-30 18:34] LABS: Bilirubin Negative (Negative); Blood, Urine Small (Negative); Clarity CLOUDY (Clear); Glucose, Urine (Dipstick) 500 mg/dL (Negative); Leukocyte Moderate (Negative); Nitrite Positive (Negative); Protein, Urine (Dipstick) 300 mg/dL (Neg-Trace); Specific Gravity, Urine 1.015 (1.002-1.036); pH, Urine 6.5 (5.0-9.0)
[2018-08-30 18:36] LABS: Bacteria/HPF 4+ HPF (None Seen); Hyaline Casts/LPF 0-3 HYALINE CAST LPF (0-3 Hyaline); Pathc Cast-AUWi Flag 0.43 (0-2.49)
[2018-08-30 19:02] LABS: #Eosinphils 0.3 thou/uL (0.0-0.7); #Lymphocytes 2.7 thou/uL (1.20-3.40); #Monocytes 0.8 thou/uL (0.11-0.59); %Basophils 0.3 % (0.0-1.0); %Eosinophils 2.7 % (0.0-10.0); %Lymphocytes 27.8 % (21.0-51.0); %Monocytes 8.3 % (0.0-10.0); %Neutrophils 60.9 % (42.0-75.0); Hemoglobin 10.3 g/dL (12.0-16.0); Mean Corpuscular HGB CONC 35.2 g/dL (32.0-36.0); Mean Corpuscular Hemoglobin 31.8 pg (27.0-31.0); Mean Corpuscular Volume 90.4 fL (78.0-98.0); Mean Platelet Volume 6.3 fL (7.4-10.4); Platelet Count 392 thou/uL (130-400); RBC Distribution Width 11.2 % (11.5-14.5); Red Blood Cell (RBC) Count 3.24 mill/uL (4.20-5.40); White Blood Cell (WBC) Count 9.9 thou/uL (4.8-10.8)
[2018-08-30 19:19] LABS: ALT (SGPT) 17 U/L (8-55); AST (SGOT) 21 U/L (5-34); Albumin 3.3 g/dL (3.5-5.0); Alkaline Phosphatase 92 U/L (40-150); Anion Gap 11 mmol/L (10-20); BUN (Urea Nitrogen) 23 mg/dL (7.0-18.7); Bilirubin, Total 0.2 mg/dL (0.2-1.2); Calc. Creatinine Clearance 0 mL/min (70-130); Calcium 8.3 mg/dL (7.8-10.44); Carbon Dioxide 24 mmol/L (22-29); Chloride 106 mmol/L (98-107); Estimated GFR-MDRD 54; Globulin 3.3 g/dL (2.4-3.5); Glucose 156 mg/dL (70-105); Lipase 56 U/L (8-78); Potassium 5.1 mmol/L (3.5-5.1); Protein, Total 6.6 g/dL (6.0-8.3); Sodium 136 mmol/L (136-145)
[2018-08-30] MEDS ORDERED: Ondansetron PF 4 MG/2 ML Vial ONE (20:32)
== END 2018-08-30 23:23 | disposition home or self-care (01) ==
LOC: ERS 17:48
DX: N12 Tubulo-interstitial nephritis, not specified as acute or chronic (principal); I10 Essential (primary) hypertension; E11.9 Type 2 diabetes mellitus without complications; Z79.899 Other long term (current) drug therapy; Z79.4 Long term (current) use of insulin
CPT/HCPCS: 36415; 80053; 81003; 81015; 83690; 85025; 96361; 96374; J2405

== ENCOUNTER 2018-12-31 09:47 | Emergency (ER) | payer SELFPAY ==
[2018-12-31] MEDS ORDERED: Ondansetron ODT 4 MG TAB ONE (10:11)
[2018-12-31] MEDS ORDERED: Ketorolac Tromethamine 30 MG/ML VIAL ONE (10:11)
[2018-12-31] MEDS ORDERED: Lidocaine Viscous Sol 2% 15 ml UD Cup ONE (10:12)
[2018-12-31] MEDS ORDERED: Mag-Al 1200 mg/1200 mg/30 ML UDCUP ONE (10:12)
--- NOTE | 2018-12-31 10:58 | RAD ---
RADIOGRAPH CHEST 2 VIEWS: DATE: 12/31/2018 HISTORY: 43-year-old female with cough and left chest pain. FINDINGS: There is no airspace density, pulmonary edema, pleural effusion, pneumothorax, or cardiomegaly. IMPRESSION: No acute cardiopulmonary findings.
[2018-12-31 11:17] LABS: #Eosinphils 0.3 thou/uL (0.0-0.7); #Lymphocytes 1.8 thou/uL (1.20-3.40); #Monocytes 0.7 thou/uL (0.11-0.59); #Neutrophils 8.9 thou/uL (1.40-6.50); %Basophils 0.3 % (0.0-1.0); %Eosinophils 2.6 % (0.0-10.0); %Monocytes 5.8 % (0.0-10.0); %Neutrophils 76.3 % (42.0-75.0); Hemoglobin 11.1 g/dL (12.0-16.0); Mean Corpuscular HGB CONC 34.8 g/dL (32.0-36.0); Mean Corpuscular Volume 89.2 fL (78.0-98.0); Mean Platelet Volume 6.4 fL (7.4-10.4); Platelet Count 456 thou/uL (130-400); Red Blood Cell (RBC) Count 3.58 mill/uL (4.20-5.40); White Blood Cell (WBC) Count 11.7 thou/uL (4.8-10.8)
[2018-12-31 11:39] LABS: BHCG - Serum Negative (NEGATIVE); Pregs Control Background? CLEAR/WHITE (CLR/WHITE); Pregs Control Bar Appear? YES (CONTROL BAR)
[2018-12-31 11:40] LABS: ALT (SGPT) 17 U/L (8-55); AST (SGOT) 13 U/L (5-34); Albumin 3.7 g/dL (3.5-5.0); Alkaline Phosphatase 103 U/L (40-150); Anion Gap 13 mmol/L (10-20); BUN (Urea Nitrogen) 21 mg/dL (7.0-18.7); Bilirubin, Total 0.5 mg/dL (0.2-1.2); Calc. Creatinine Clearance 0 mL/min (70-130); Calcium 9.6 mg/dL (7.8-10.44); Carbon Dioxide 24 mmol/L (22-29); Chloride 100 mmol/L (98-107); Estimated GFR-MDRD 46; Globulin 3.7 g/dL (2.4-3.5); Glucose 223 mg/dL (70-105); Lipase 26 U/L (8-78); Potassium 4.1 mmol/L (3.5-5.1); Protein, Total 7.4 g/dL (6.0-8.3); Sodium 133 mmol/L (136-145)
[2018-12-31 12:17] LABS: Bilirubin Negative (Negative); Blood, Urine Small (Negative); Glucose, Urine (Dipstick) 500 mg/dL (Negative); Leukocyte Small (Negative); Nitrite Negative (Negative); Protein, Urine (Dipstick) > or equal to 300 mg/dL (Neg-Trace); Urobilinogen 0.2 mg/dL (Less than 2)
[2018-12-31 12:25] LABS: Clarity CLEWAR (Clear)
[2018-12-31 12:27] LABS: Bacteria/HPF 4+ HPF (None Seen); Squamous Epithelial 0-3 HPF (0-3)
== END 2018-12-31 12:35 | disposition home or self-care (01) ==
LOC: ERS 09:47
DX: J20.8 Acute bronchitis due to other specified organisms (principal); K27.9 Peptic ulcer, site unspecified, unspecified as acute or chronic, without hemorrhage or perforation; E11.9 Type 2 diabetes mellitus without complications; I10 Essential (primary) hypertension; Z79.4 Long term (current) use of insulin; Z79.899 Other long term (current) drug therapy
CPT/HCPCS: 71046; 80053; 81003; 81015; 83690; 84484; 84703; 85025; 93005; 96361; 96374; J1885; Q0162

== ENCOUNTER 2019-05-02 12:21 | Observation (INO) | payer MEDICAID, SELFPAY ==
--- NOTE | 2019-05-02 13:28 | RAD ---
PA AND LATERAL VIEWS CHEST: Date: 05/02/19 HISTORY: Chest pain with dyspnea. FINDINGS: Comparison made with exam of 12/31/18. The cardiomediastinum is normal. The lungs are well expanded and clear. The bony structures are unrem arkable. IMPRESSION: Normal exam. POS: [facility]
[2019-05-02 13:30] LABS: #Basophils 0.1 thou/uL (0.0-0.2); #Eosinphils 0.4 thou/uL (0.0-0.7); #Lymphocytes 2.9 thou/uL (1.20-3.40); #Monocytes 0.5 thou/uL (0.11-0.59); #Neutrophils 5.7 thou/uL (1.40-6.50); %Basophils 0.8 % (0.0-1.0); %Lymphocytes 30.6 % (21.0-51.0); %Monocytes 5.1 % (0.0-10.0); %Neutrophils 59.4 % (42.0-75.0); Hemoglobin 11.9 g/dL (12.0-16.0); Mean Corpuscular HGB CONC 36.4 g/dL (32.0-36.0); Mean Corpuscular Hemoglobin 32.2 pg (27.0-31.0); Mean Corpuscular Volume 88.4 fL (78.0-98.0); Mean Platelet Volume 6.2 fL (7.4-10.4); Platelet Count 540 thou/uL (130-400); RBC Distribution Width 11.1 % (11.5-14.5); Red Blood Cell (RBC) Count 3.71 mill/uL (4.20-5.40); White Blood Cell (WBC) Count 9.5 thou/uL (4.8-10.8)
[2019-05-02] MEDS ORDERED: Nitroglycerin 2% Ointment 1 INCH/1 GM Packet ONE (13:52)
[2019-05-02] MEDS ORDERED: Metoclopramide HCl 10 MG/2 ML VIAL ONE (13:52)
[2019-05-02] MEDS ORDERED: Acetaminophen 500 MG TAB ONE (13:52)
--- NOTE | 2019-05-02 14:04 | CT ---
CT Brain WO Con HISTORY: Headache COMPARISON: 06/01/2017 study. FINDINGS: The ventricular and cisternal system is within normal limits. There are no signs of intrace rebral hemorrhage or extra-axial fluid collections. The mastoid air cells and visualized sinuses are clear. IMPRESSION: No acute intracranial abnormalities.
[2019-05-02 14:12] LABS: ALT (SGPT) 12 U/L (8-55); AST (SGOT) 12 U/L (5-34); Albumin 3.5 g/dL (3.5-5.0); Alkaline Phosphatase 91 U/L (40-110); Anion Gap 10 mmol/L (10-20); BUN (Urea Nitrogen) 26 mg/dL (7.0-18.7); Bilirubin, Total 0.2 mg/dL (0.2-1.2); Calc. Creatinine Clearance 0 mL/min (70-130); Calcium 9.3 mg/dL (7.8-10.44); Carbon Dioxide 26 mmol/L (22-29); Chloride 102 mmol/L (98-107); Estimated GFR-MDRD 42; Globulin 3.6 g/dL (2.4-3.5); Glucose 184 mg/dL (70-105); Potassium 4.4 mmol/L (3.5-5.1); Protein, Total 7.1 g/dL (6.0-8.3); Sodium 134 mmol/L (136-145)
[2019-05-02] MEDS ORDERED: Aspirin Chewable 81 MG TAB ONE (15:49)
[2019-05-02 16:51] LABS: Alcohol Less than 10 mg/dL (Less than 10); Salicylate Less than 8.0 mg/dL (15.0-30.0)
[2019-05-02 17:52] LABS: Troponin I Less than 0.010 ng/mL (< 0.028)
[2019-05-02] MEDS ORDERED: Dextrose 50% Abboject 50 ML SYRINGE SLOW IVP PRN (18:35)
[2019-05-02] MEDS ORDERED: HumaLOG 300 UNITS/3 ML VIAL SC PRN ×2 (18:35)
[2019-05-02] MEDS ORDERED: Dextrose 5% in Water 1,000 ML IV PRN (18:35)
[2019-05-02] MEDS ORDERED: Senokot S 8.6-50 MG TAB PO PRN (18:35)
[2019-05-02] MEDS ORDERED: Nitroglycerin 0.4 MG TAB (25 Tab Bottle) PO PRN (18:35)
[2019-05-02] MEDS ORDERED: Bisacodyl 10 MG SUPP PR PRN (18:35)
[2019-05-02] MEDS ORDERED: Guaifenesin DM 100-10/5 ML UDCUP PO PRN (18:35)
[2019-05-02 18:49] LABS: Bilirubin Negative (Negative); Blood, Urine Moderate (Negative); Clarity Opaque (Clear); Glucose, Urine (Dipstick) 500 mg/dL (Negative); Leukocyte Small (Negative); Nitrite Negative (Negative); Protein, Urine (Dipstick) > or equal to 300 mg/dL (Neg-Trace); Urobilinogen 0.2 mg/dL (Less than 2)
[2019-05-02 19:09] LABS: Bacteria/HPF 4+ HPF (None Seen); Squamous Epithelial 21-50 HPF (0-3); WBC/HPF 21-50 HPF (0-3)
--- NOTE | 2019-05-02 19:12 | HP ---
REASON FOR ADMISSION: Chest pain. HISTORY OF PRESENTING ILLNESS: The patient gives history of having retrosternal chest pain, radiating to back and left arm. This has been off and on for last 3 days. Each episode lasts for a few minutes and gets resolved by itself. She also developed headache from last 2 weeks, which is progressively getting worse. She also developed shortness of breath on exertion from last 3 days. No fever. Has dry cough. No complaints of myalgias as such. The patient likely has neuropathy in her legs with tingling and numbness in lower extremities. PAST MEDICAL AND SURGICAL HISTORY: Diabetes mellitus, type 2; hypertension; history of abnormal Pap smear with partial hysterectomy; cholecystectomy; prior history of UTI; and depression. CURRENT MEDICATIONS: 1. Levemir 50 units subcu twice daily. 2. NovoLog 15 units subcu twice daily before meals. 3. Lisinopril with hydrochlorothiazide 20-25 mg daily. 4. Fluoxetine 20 mg p.o. daily. ALLERGIES: TO MORPHINE. PERSONAL HISTORY: Does not abuse alcohol or drugs. No history of smoking. FAMILY HISTORY: Mother 30 days back at the age of 65 years. She has had history of coronary artery disease. Father is living, has history of diabetes. CODE STATUS: Full. REVIEW OF SYSTEMS: CONSTITUTIONAL: Negative for weight loss or gain, ability to conduct usual activities. SKIN: Negative for rash, itching. EYES: Negative for double vision, pain. ENT/MOUTH: Negative for nose bleeding, neck stiffness, pain, tenderness. CARDIOVASCULAR: Negative for palpitations, dyspnea on exertion, orthopnea. RESPIRATORY: Negative for shortness of breath, wheezing, cough, hemoptysis, fever or night sweats. GASTROINTESTINAL: Negative for poor appetite, abdominal pain, heartburn, nausea , vomiting, constipation, or diarrhea. GENITOURINARY: Negative for urgency, frequency, dysuria, nocturia. MUSCULOSKELETAL: Negative for pain, swelling. NEUROLOGIC/PSYCHIATRIC: Negative for anxiety, depression. ALLERGY/IMMUNOLOGIC: Negative for skin rash, bleeding tendency. PHYSICAL EXAMINATION: GENERAL: The patient is a 43-year-old female who is currently not in any acute distress. VITAL SIGNS: Blood pressure on arrival was 200/90, currently around 150/74; pulse 80 per minute; respiratory rate 18 per minute; temperature 98.3 degrees Fahrenheit; and saturating 94% on room air. NECK: Supple. No elevated JVD. HEENT: Eyes; extraocular muscles intact. Pupils reacting to light. Oral cavity, mucous membranes are moist. No exudates or congestion. CARDIOVASCULAR SYSTEM: S1 and S2 heard, regular rhythm. RESPIRATORY SYSTEM: Air entry 2+ bilateral. No rales or rhonchi. ABDOMEN: Soft. Bowel sounds heard. No tenderness, rigidity, or guarding. EXTREMITIES: No peripheral edema or calf tenderness. VASCULAR SYSTEM: Peripheral pulses 2+ bilateral. No ischemic ulcerations or gangrene. CENTRAL NERVOUS SYSTEM: No gross focal deficits noted. The patient is alert, awake, and oriented well. PSYCHIATRIC SYSTEM: The patient's mood is euthymic. No hallucinations or delusions. LABORATORY DATA: CT brain done, shows no acute intracranial abnormality. Chest x-ray done shows no acute cardiopulmonary abnormalities. Plasma alcohol less than 10. Troponin x2 negative. Albumin 3.5, BUN 26, creatinine 1.39, serum glucose 184. Liver enzymes within normal limits. Serum bicarb 26. White count of 9, H and H 12 and 32, platelet count 540, with 59% neutrophils, MCV is 88. EKG done, shows normal sinus rhythm at 81 beats per minute. No gross ST-T wave changes. CLINICAL IMPRESSION AND PLAN: The patient will be under observation on telemetry for chest pain, rule out acute coronary syndrome, hypertensive urgency on arrival. She was given labetalol IV 20 mg, nitroglycerin paste 1 inch, and her blood pressure has come down to 150s at present. The plan is to obtain a nuclear stress test in the morning. Please note, the patient is not suicidal. Her mother 30 days back, and the patient is essentially grieving. No suicidal intention or plans. This was confirmed with the patient and her son at bedside. We will continue on full-dose aspirin, Lantus 50 units subcu twice daily, normal saline at 100 mL per hour for a total of 2 bags. The patient has mild acute kidney injury and likely IV fluids should help with that. We will continue Prozac as before. We will continue to closely monitor her on telemetry. Job ID: [id number] MTDD
[2019-05-02] MEDS ORDERED: Lorazepam 1 MG TAB PO PRN (19:59)
[2019-05-02] MEDS: Famotidine 20 MG TAB PO SCH (20:01)
[2019-05-02] MEDS: Sodium Chloride 0.9% 1,000 ML IV SCH (20:02)
[2019-05-02 21:02] LABS: Troponin I 0.016 ng/mL (< 0.028)
[2019-05-02] MEDS: Insulin Glargine 50 UNITS in Pre-Filled Syringe SC SCH (21:06)
[2019-05-03 05:20] LABS: Hemoglobin A1c 7.7 % (4.0-6.0)
[2019-05-03 05:38] LABS: Anion Gap 12 mmol/L (10-20); BUN (Urea Nitrogen) 25 mg/dL (7.0-18.7); Calc. Creatinine Clearance 61 mL/min (70-130); Calcium 8.2 mg/dL (7.8-10.44); Carbon Dioxide 22 mmol/L (22-29); Cardiac Risk 7.7 (Less than 4.5); Chloride 104 mmol/L (98-107); Cholesterol 254 mg/dl (< 200 Desired); Estimated GFR-MDRD 40; Glucose 294 mg/dL (70-105); HDL Cholesterol 33 mg/dL (>60 Neg Risk); LDL Cholesterol, Calculated 174 mg/dL; Potassium 4.4 mmol/L (3.5-5.1); Sodium 134 mmol/L (136-145); Triglycerides 235 mg/dL (Less than 150)
[2019-05-03] MEDS: Sodium Chloride 0.9% 1,000 ML IV SCH (06:08)
[2019-05-03] MEDS ORDERED: Ciprofloxacin 500 MG TAB PO SCH (09:00)
[2019-05-03] MEDS: Enoxaparin Sodium 40 MG/0.4 ML SYRINGE SC SCH (09:28)
[2019-05-03] MEDS: FLUoxetine HCl 20 MG CAP PO SCH (09:28)
[2019-05-03] MEDS: Famotidine 20 MG TAB PO SCH ×2 (09:28→20:44)
[2019-05-03] MEDS: Aspirin 325 mg Enteric Coated Tablet PO SCH (09:28)
[2019-05-03] MEDS: Acetaminophen 325 MG TAB PO PRN (09:32)
[2019-05-03] MEDS: Insulin Glargine 50 UNITS in Pre-Filled Syringe SC SCH ×2 (12:59→21:03)
--- NOTE | 2019-05-03 13:06 | NM ---
CARDIAC SPECT: HISTORY: A 43-year-old female with chest pain, hypertension, diabetes and family history of coronary artery di sease. TECHNIQUE: A stress only myocardial perfusion scan was performed following the intravenous administration of 33 millicuries of technetium 99m sestamibi injected intravenously. Pharmacologic stress with adenosine w as monitored and interpreted by Dr. Dos Santos. FINDINGS: Homogeneous tracer distribution is seen in the myocardial segments on the post stress images. Gaited SPECT LVEF is 73%. Wall motion exam is normal. IMPRESSION: Normal post stress myocardial perfusion scan. POS: [facility]
[2019-05-03] MEDS ORDERED: Amlodipine 5 MG TAB PO SCH (14:45)
--- NOTE | 2019-05-03 16:49 | PDOC.HOSPP ---
- Subjective Encounter Date: 05/03/19 Encounter Time: 14:46 Subjective: 43 y/o female with HTN, DM admitted with acute onset of chest pain with radiation to neck, back and left shoulder. Acute Mi was ruled out with serial troponin. She also was found to have hyponatremia and TWAN. Feeling better. chest pain has resolved. - Objective Vital Signs & Weight: Vital Signs (12 hours) Temp Pulse Resp BP BP Pulse Ox 05/03/19 14:07 89 158/72 H 05/03/19 12:00 98.6 F 90 16 189/81 H 98 05/03/19 08:16 98.2 F 81 16 141/65 H 98 Weight Weight 169 lb 4 oz I&O: 05/02/19 05/03/19 05/04/19 06:59 06:59 06:59 Intake Total 1240 Balance 1240 Result Diagrams: 05/02/19 13:18 05/03/19 04:31 Additional Labs: Accuchecks 05/03/19 05/03/19 05/02/19 12:30 05:13 19:46 POC Glucose 283 H 259 H 396 H Hospitalist ROS - Medication Medications: Active Medications Generic Name Dose Route Start Last Admin Trade Name Freq PRN Reason Stop Dose Admin Acetaminophen 650 mg 05/02/19 18:35 05/03/19 09:32 Tylenol PO 650 mg Q4H PRN Administration Headache/Fever/Mild Pain (1-3) Aspirin 325 mg 05/03/19 09:00 05/03/19 09:28 Ecotrin PO 325 mg DAILY ROBBY Administration Enoxaparin Sodium 40 mg 05/03/19 09:00 05/03/19 09:28 Lovenox SC 40 mg 0900 ROBBY Administration Famotidine 20 mg 05/02/19 21:00 05/03/19 09:28 Pepcid PO 20 mg BID ROBBY Administration Fluoxetine HCl 20 mg 05/03/19 09:00 05/03/19 09:28 Prozac PO 20 mg DAILY ROBBY Administration Insulin Glargine 50 units/ 0.5 mls @ 0 mls/hr 05/02/19 21:00 05/03/19 12:59 Miscellaneous Medication SC 0.5 mls BID ROBBY Administration Insulin Human Lispro 0 units 05/02/19 18:35 05/02/19 20:53 Humalog SC 5 unit .BEDTIME SLIDING SC PRN Administration Bedtime Correctional Scale Lorazepam 1 mg 05/02/19 19:59 05/02/19 20:53 Ativan PO 05/03/19 20:00 1 mg ONE PRN Administration Anxiety/Agitation - Exam General Appearance: awake alert Eye: anicteric sclera ENT: normocephalic atraumatic Neck: supple, symmetric, no JVD Heart: RRR Respiratory: no wheezes, no rales, no ronchi, normal chest expansion Gastrointestinal: soft, non-tender, non-distended, normal bowel sounds Extremities: no cyanosis, no edema Neurological: cranial nerve grossly intact, no focal deficits Hosp A/P (1) Hyponatremia Code(s): E87.1 - HYPO-OSMOLALITY AND HYPONATREMIA Status: Acute (2) Acute kidney failure Status: Acute (3) DM (diabetes mellitus) type II controlled, neurological manifestation Code(s): E11.49 - TYPE 2 DIABETES [facility] DIABETIC NEUROLOGICAL COMPLICATION Status: Acute (4) Diabetes type 2, controlled Code(s): E11.9 - TYPE 2 DIABETES MELLITUS WITHOUT COMPLICATIONS Status: Chronic (5) HTN (hypertension) Code(s): I10 - ESSENTIAL (PRIMARY) HYPERTENSION Status: Chronic Qualifiers: Hypertension type: essential hypertension Qualified Code(s): I10 - Essential (primary) hypertension (6) Obesity (BMI 30.0-34.9) Code(s): E66.9 - OBESITY, UNSPECIFIED Status: Chronic (7) Chest pain Code(s): R07.9 - CHEST PAIN, UNSPECIFIED Status: Acute - Plan Hold Lisinopril/HCTZ due to TWAN and hyponatremia Start amlodipine for BP. DC IVF Repeat BMP Harris oral intake advised Continue oral hypoglycemmic agent.
[2019-05-03 16:55] LABS: Anion Gap 12 mmol/L (10-20); BUN (Urea Nitrogen) 23 mg/dL (7.0-18.7); Calc. Creatinine Clearance 57 mL/min (70-130); Calcium 8.1 mg/dL (7.8-10.44); Carbon Dioxide 21 mmol/L (22-29); Chloride 103 mmol/L (98-107); Estimated GFR-MDRD 37; Glucose 327 mg/dL (70-105); Potassium 4.3 mmol/L (3.5-5.1); Sodium 132 mmol/L (136-145)
[2019-05-03] MEDS ORDERED: NIFEdipine XL 30 MG TAB PO SCH (18:45)
[2019-05-03] MEDS: Sodium Bicarbonate Tab 325 MG TAB PO SCH (20:43)
[2019-05-03] MEDS: Ciprofloxacin 500 MG TAB PO SCH (20:44)
[2019-05-04 04:52] LABS: Anion Gap 12 mmol/L (10-20); BUN (Urea Nitrogen) 23 mg/dL (7.0-18.7); BUN/Creatinine Ratio 16.43; Calc. Creatinine Clearance 63 mL/min (70-130); Calcium 8.1 mg/dL (7.8-10.44); Carbon Dioxide 22 mmol/L (22-29); Chloride 103 mmol/L (98-107); Estimated GFR-MDRD 41; Glucose 196 mg/dL (70-105); Potassium 4.3 mmol/L (3.5-5.1); Sodium 133 mmol/L (136-145)
[2019-05-04] MEDS: Ciprofloxacin 500 MG TAB PO SCH (06:16)
[2019-05-04] MEDS: Acetaminophen 325 MG TAB PO PRN (06:21)
[2019-05-04 07:21] VITALS: BP 108/54; TEMP 98.3
[2019-05-04] MEDS: Enoxaparin Sodium 40 MG/0.4 ML SYRINGE SC SCH (09:01)
[2019-05-04] MEDS: Aspirin 325 mg Enteric Coated Tablet PO SCH (09:02)
[2019-05-04] MEDS: FLUoxetine HCl 20 MG CAP PO SCH (09:02)
[2019-05-04] MEDS: Sodium Bicarbonate Tab 325 MG TAB PO SCH (09:02)
[2019-05-04] MEDS: Famotidine 20 MG TAB PO SCH (09:02)
[2019-05-04] MEDS: Insulin Glargine 50 UNITS in Pre-Filled Syringe SC SCH (09:52)
--- NOTE | 2019-05-04 15:09 | DIS ---
DATE OF ADMISSION: 05/02/2019 DATE OF DISCHARGE: 05/04/2019 PRIMARY CARE PROVIDER: [facility]. DISCHARGE DIAGNOSES: 1. Atypical chest pain. 2. Hypertensive urgency. 3. Hyponatremia. 4. Syndrome of inappropriate antidiuretic hormone secretion. 5. Acute kidney injury. 6. Type 2 diabetes mellitus. 7. Obesity. HOSPITAL COURSE: A 43-year-old female with known history of hypertension, diabetes, admitted with acute onset of left-sided chest pain with radiation to the neck, back, and left shoulder. The patient on presentation was found to have elevated blood pressure. Acute myocardial infarction was ruled out with serial troponin. She was further risk stratified with nuclear stress test, which was negative for reversible ischemia. The patient also was found to have hyponatremia and acute kidney injury. Was treated with IV fluid, but this led to drop in serum sodium suggestive of SIADH. Of note, the patient was on hydrochlorothiazide. Impression of SIADH was made and IV fluid was discontinued, and fluid restriction commenced. Sodium improved to 133. Due to acute kidney injury, RAAS tu and diuretics were discontinued, and the patient was started on amlodipine on discharge. Blood pressure improved and the patient was subsequently discharged home. The patient also was found to have features of urinary tract infection on UA and was started on antibiotic therapy with ciprofloxacin with improvement. PHYSICAL EXAMINATION: VITAL SIGNS: Temperature 98.3, pulse 76, respiratory rate 16, SpO2 of 95% on room air, blood pressure is 108/54. GENERAL: Middle-age female, in no obvious distress. Afebrile. Anicteric. Acyanotic. HEENT: Normocephalic, atraumatic. Oral mucosa is moist. CARDIOVASCULAR: Regular rhythm and rate with normal. heart sounds one and two. RESPIRATORY: Good air entry bilaterally with no obvious crackle or rhonchi or use of accessory muscles. GASTROINTESTINAL: Abdomen is obese, soft, nontender, nondistended with normal bowel sounds. EXTREMITIES: Grossly normal-looking atraumatic with no edema or erythema. CENTRAL NERVOUS SYSTEM: Conscious, alert, and oriented x3 with appropriate mental status. DISCHARGE DISPOSITION: Home. DISCHARGE CONDITION: Improved. FOLLOWUP: With PCP in 1 week. DISCHARGE MEDICATIONS: 1. Fluoxetine 20 mg p.o. daily. 2. Insulin Levemir 50 subcutaneously b.i.d. 3. Amlodipine 10 mg p.o. daily. 4. Aspirin 325 mg p.o. daily. 5. Ciprofloxacin 500 mg p.o. b.i.d. for 5 days. 6. Sliding scale insulin 0 to 15 units subcutaneously with meals. Job ID: [id number]
== END 2019-05-04 12:23 | disposition home or self-care (01) ==
LOC: ERS 12:21 → 2NO 19:11
PROVIDERS: ADMIT Internal Medicine; ATTEND Internal Medicine
DX: R07.89 Other chest pain (principal); I16.0 Hypertensive urgency; I10 Essential (primary) hypertension; E11.9 Type 2 diabetes mellitus without complications; N17.9 Acute kidney failure, unspecified; E22.2 Syndrome of inappropriate secretion of antidiuretic hormone; E66.9 Obesity, unspecified; Z68.33 Body mass index [BMI] 33.0-33.9, adult; Z79.4 Long term (current) use of insulin; Z79.899 Other long term (current) drug therapy; Z88.5 Allergy status to narcotic agent
CPT/HCPCS: 36415; 36416; 70450; 71046; 78452; 80048; 80053; 80061; 80069; 80307; 81003; 81015; 83036; 84443; 84484; 85025; 87077; 87086; 87186; 93005; 93017; 94760; 96361; 96365; 96366; A9500; G0378; J1650; J1815; J2765

== ENCOUNTER 2019-12-06 19:38 | Inpatient (IN) | payer OTHER, SELFPAY ==
[2019-12-06] MEDS ORDERED: Nitroglycerin 2% Ointment 1 INCH/1 GM Packet ONE (20:13)
[2019-12-06] MEDS ORDERED: Aspirin Chewable 81 MG TAB ONE (20:13)
[2019-12-06 20:35] LABS: #Basophils 0.1 thou/uL (0.0-0.2); #Eosinphils 0.5 thou/uL (0.0-0.7); #Lymphocytes 2.5 thou/uL (1.20-3.40); #Monocytes 0.5 thou/uL (0.11-0.59); #Neutrophils 5.1 thou/uL (1.40-6.50); %Basophils 0.6 % (0.0-1.0); %Eosinophils 5.3 % (0.0-10.0); %Lymphocytes 29.2 % (21.0-51.0); %Monocytes 6.1 % (0.0-10.0); %Neutrophils 58.9 % (42.0-75.0); Hemoglobin 12.1 g/dL (12.0-16.0); Mean Corpuscular HGB CONC 34.9 g/dL (32.0-36.0); Mean Corpuscular Hemoglobin 31.4 pg (27.0-31.0); Mean Corpuscular Volume 89.9 fL (78.0-98.0); Platelet Count 431 thou/uL (130-400); RBC Distribution Width 11.4 % (11.5-14.5); Red Blood Cell (RBC) Count 3.87 mill/uL (4.20-5.40); White Blood Cell (WBC) Count 8.7 thou/uL (4.8-10.8)
--- NOTE | 2019-12-06 20:36 | RAD ---
PORTABLE CHEST ONE VIEW: 12/06/19 at 7:32 p.m. HISTORY: Cough, headache, shortness of breath, dyspnea. COMPARISON: 05/26/19. The heart size is normal. The lungs are expanded without focal areas of consolidation, pneumothoraces or pleural effusions. IMPRESSION: No acute process. POS: [facility]
[2019-12-06 20:42] LABS: ALT (SGPT) 14 U/L (8-55); AST (SGOT) 15 U/L (5-34); Albumin 3.2 g/dL (3.5-5.0); Alkaline Phosphatase 99 U/L (40-110); Anion Gap 13 mmol/L (10-20); BUN (Urea Nitrogen) 28 mg/dL (7.0-18.7); Bilirubin, Total 0.3 mg/dL (0.2-1.2); CK (CPK) 93 U/L (29-168); Calc. Creatinine Clearance 0 mL/min (70-130); Calcium 8.7 mg/dL (7.8-10.44); Carbon Dioxide 23 mmol/L (22-29); Chloride 102 mmol/L (98-107); Estimated GFR-MDRD 22; Globulin 3.8 g/dL (2.4-3.5); Glucose 399 mg/dL (70-105); Potassium 4.3 mmol/L (3.5-5.1); Sodium 134 mmol/L (136-145)
[2019-12-06 20:47] LABS: Bacteria/HPF 1+ HPF (None Seen); Bilirubin Negative (Negative); Blood, Urine 1+ (Negative); Clarity Clear (Clear); Glucose, Urine (Dipstick) Greater than 1000 mg/dL (Negative); Leukocyte 75 Leu/uL (Negative); Nitrite Negative (Negative); Protein, Urine (Dipstick) 600 mg/dL (Neg-Trace); RBC/HPF 0-3 HPF (0-3); Squamous Epithelial 0-3 HPF (0-3); Urobilinogen Normal mg/dL (Less than 2)
[2019-12-06 21:03] LABS: CKMB 1.5 ng/mL (0-6.6)
[2019-12-06] MEDS ORDERED: Ondansetron ODT 4 MG TAB SL PRN (22:58)
[2019-12-06] MEDS ORDERED: Ondansetron PF 4 MG/2 ML Vial IVP PRN (22:58)
[2019-12-06] MEDS ORDERED: Sodium Chloride 0.9% 1,000 ML IV SCH (22:58)
[2019-12-07] VITALS: BMI 35.7
[2019-12-07] MEDS ORDERED: Acetaminophen 650 MG Suppository PR PRN (00:22)
[2019-12-07] MEDS ORDERED: Ondansetron ODT 4 MG TAB PO PRN (00:22)
[2019-12-07] MEDS ORDERED: Ondansetron PF 4 MG/2 ML Vial IVP PRN (00:22)
[2019-12-07 00:24] LABS: Troponin I 0.067 ng/mL (< 0.028)
[2019-12-07] MEDS ORDERED: Dextrose 50% Abboject 50 ML SYRINGE SLOW IVP PRN (00:24)
[2019-12-07] MEDS ORDERED: Dextrose 5% in Water 1,000 ML IV PRN (00:24)
[2019-12-07] MEDS ORDERED: Benzonatate 100 MG CAP PO PRN (00:34)
[2019-12-07] MEDS ORDERED: Nitroglycerin 0.4 MG TAB (25 Tab Bottle) PO PRN (00:39)
--- NOTE | 2019-12-07 00:58 | PDOC.HHP ---
Hospitalist HPI - History of Present Illness Multiple complaints History of Present Illness: Patient presents with complaints of a dry cough x 1 week with left lateral chest wall discomfort wrapping around towards the left side of her back. She has discomfort going down her left flank and around to the left lower abdomen. She states the cough and discomfort began last . She recalls having chills for two days when it first started. Reports occasional nausea with a reduced appetite over the weekend. Denies any vomiting. Has reported shortness of breath on exertion and states the chest wall discomfort is exacerbated by her cough or certain movements. Denies any hemoptysis. No lower leg swelling, edema or calf pain. She had a normal stress test in 04/2019, read by Dr. Dos Santos. Reports having long standing lower abdominal discomfort with bloating. States she has always had issues with constipation and has not had a bowel movement in 3 days. States she has chronic constipation. She has been passing gas and tolerating oral intake without vomiting. Denies any dysuria or hematuria but has noted slightly darker urine. ED Course: On arrival to the ED she had an EKG showing NSR with HR 91. No ST Changes or T wave abnormalities. Chest xray was done and showed no acute changes. She was given 324 mg of Aspirin and nitro-bid 1 inch applied. She received IV hydration with 1 L of NS. Laboratory studies were done showing a WCC of 8.7, hgb 12.1, hct 34.8, platelet count 431. CK was 93, Na+ 134, K+ 4.3, BUN 28, Creat 2.38, GFR 22 (renal function further reduced from baseline). Glucose 399, Albumin 3.2. LFTs normal. Trop indeterminate 0.035. BNP normal. She had a UA done showing 75 leukocytes. Negative for nitrites. 600 protein, > 1000 glucose, 1+ blood, 7-10 WBC and 1+ bacteria. Hospitalist ROS - Review of Systems Constitutional: reports: chills, malaise Eyes: denies: pain, vision change, conjunctivae inflammation, eyelid inflammation, redness, other ENT: denies: ear pain, ear discharge, nose pain, nose discharge, nose congestion , mouth pain, mouth swelling, throat pain, throat swelling, other Respiratory: reports: cough, dry, SOB with excertion. denies: shortness of breath, hemoptysis, pleuritic pain, sputum, wheezing, other Cardiovascular: reports: chest pain (left lateral chest wall). denies: palpitations, orthopnea, paroxysmal noc. dyspnea, edema, light headedness, other Gastrointestinal: reports: nausea, abdominal pain (lower abdomen, left flank), constipation. denies: vomiting, diarrhea, melena, hematochezia, other Genitourinary: denies: dysuria, frequency, incontinence, hematuria, retention, other Musculoskeletal: denies: neck pain, shoulder pain, arm pain, back pain, hand pain, leg pain, foot pain, other Skin: denies: rash, lesions, amina, bruising, other Neurological: denies: weakness, numbness, incoordination, change in speech, confusion, seizures, other - Medication Medications: Active Medications Generic Name Dose Route Start Last Admin Trade Name Freq PRN Reason Stop Dose Admin Sodium Chloride 1,000 mls @ 75 mls/hr 12/06/19 22:58 12/06/19 23:41 Normal Saline 0.9% IV 12/07/19 11:00 1,000 mls .[id number] ROBBY Administration ALLERGIES: Morphine. HOME MEDICATIONS: Levemir WedDec 06, 2019 21:29 JONO Leyva Jt VIAL (ML) : Strength - 100 unit/mL : SUBCUTANEOUS Patient Dose: 50 units Subcutaneous 2 times a day. NovoLOG WedDec 06, 2019 21:29 JONO Leyva Jt VIAL (ML) : Strength - 100 unit/mL : SUBCUTANEOUS Patient Dose: 50 units Subcutaneous 2 times a day. lisinopril WedDec 06, 2019 21:33 JONO Leyva Jt tablet : Strength - 5 mg : ORAL Patient Dose: 1 mg Oral once a day. Hospitalist History - Past Medical History Cardiac: reports: HTN Gastrointestinal: reports: Other (Cholelithiasis) Psych: reports: Depression Renal/: reports: Other (Kidney infections) Endocrine: reports: Diabetes - Past Surgical History Past Surgical History: reports: Cholecystectomy, Hysterectomy, Other (cervical spine surgery) - Family History Family History: reports: no pertinent history - Social History Smoking Status: Never smoker Alcohol: reports: None Drugs: reports: none Living Situation: Alone Activity level: independent ambulation - Exam General Appearance: NAD, awake alert General - other findings: resting in bed Eye: PERRL, anicteric sclera ENT: normocephalic atraumatic, no oropharyngeal lesions Neck: supple, symmetric, no lymphadenopathy Heart: RRR, no murmur, no gallops, no rubs, normal peripheral pulses Respiratory: CTAB, no wheezes, no rales, no ronchi, normal chest expansion, no tachypnea Respiratory - other findings: left lateral chest wall tenderness with palpation Gastrointestinal: soft, non-distended, tender to palpation (to lower abdomen, CVA tenderness L>R) Extremities: no edema Skin: normal turgor, no lesions, no rashes Neurological: cranial nerve grossly intact, normal sensation to touch, no weakness, no focal deficits Musculoskeletal: normal tone, normal strength, no muscle wasting Psychiatric: normal affect, normal behavior, A&O x 3 Hospitalist Results - Labs Result Diagrams: 12/06/19 20:12/06/19 20: Lab results: WBC 8.7 thou/uL (4.8-10.8) 12/06/19 20:09 Hgb 12.1 g/dL (12.0-16.0) 12/06/19 20:09 Hct 34.8 % (36.0-47.0) L 12/06/19 20:09 MCV 89.9 fL (78.0-98.0) 12/06/19 20:09 Plt Count 431 thou/uL (130-400) H 12/06/19 20:09 Neutrophils % 58.9 % (42.0-75.0) 12/06/19 20:09 Sodium 134 mmol/L (136-145) L 12/06/19 20:09 Potassium 4.3 mmol/L (3.5-5.1) 12/06/19 20:09 Chloride 102 mmol/L (98-107) 12/06/19 20:09 Carbon Dioxide 23 mmol/L (22-29) 12/06/19 20:09 BUN 28 mg/dL (7.0-18.7) H 12/06/19 20:09 Creatinine 2.38 mg/dL (0.6-1.1) H 12/06/19 20:09 Glucose 399 mg/dL (70-105) H 12/06/19 20:09 Calcium 8.7 mg/dL (7.8-10.44) 12/06/19 20:09 Total Bilirubin 0.3 mg/dL (0.2-1.2) 12/06/19 20:09 AST 15 U/L (5-34) 12/06/19 20:09 ALT 14 U/L (8-55) 12/06/19 20:09 Alkaline Phosphatase 99 U/L (40-110) 12/06/19 20:09 Creatine Kinase 93 U/L (29-168) 12/06/19 20:09 CK-MB (CK-2) 1.5 ng/mL (0-6.6) 12/06/19 20:09 Troponin I 0.067 ng/mL (< 0.028) H 12/06/19 23:52 B-Natriuretic Peptide 90.0 pg/mL (0-100) 12/06/19 20:09 Serum Total Protein 7.0 g/dL (6.0-8.3) 12/06/19 20:09 Albumin 3.2 g/dL (3.5-5.0) L 12/06/19 20:09 Urine Ketones Negative mg/dL (Negative) 12/06/19 20:34 Urine Blood 1+ (Negative) A 12/06/19 20:34 Urine Nitrite Negative (Negative) 12/06/19 20:34 Ur Leukocyte Esterase 75 Giuliano/uL (Negative) A 12/06/19 20:34 Urine RBC 0-3 HPF (0-3) 12/06/19 20:34 Urine WBC 7-10 HPF (0-3) A 12/06/19 20:34 Ur Squamous Epith Cells 0-3 HPF (0-3) 12/06/19 20:34 Urine Bacteria 1+ HPF (None Seen) A 12/06/19 20:34 - Radiology Interpretation Chest x-ray Status: report reviewed by wy Hospitalist H&P A/P - Problem (1) Dry cough Code(s): R05 - COUGH Status: Acute (2) Zocia-tt-[id number] kidney injury Code(s): N17.9 - ACUTE KIDNEY FAILURE, UNSPECIFIED; N18.9 - CHRONIC KIDNEY DISEASE, UNSPECIFIED Status: Acute (3) Left flank pain Code(s): R10.9 - UNSPECIFIED ABDOMINAL PAIN Status: Acute (4) Suspected UTI Code(s): R39.89 - OTHER SYMPTOMS AND SIGNS INVOLVING THE GENITOURINARY SYSTEM Status: Acute (5) Suspected COVID-19 virus infection Code(s): Z20.828 - CONTACT W AND EXPOSURE TO OTH VIRAL COMMUNICABLE DISEASES Status: Acute (6) Constipation Code(s): K59.00 - CONSTIPATION, UNSPECIFIED Status: Chronic (7) Abdominal bloating Code(s): R14.0 - ABDOMINAL DISTENSION (GASEOUS) Status: Chronic (8) Diabetes type 2, controlled Code(s): E11.9 - TYPE 2 DIABETES MELLITUS WITHOUT COMPLICATIONS Status: Chronic (9) HLD (hyperlipidemia) Code(s): E78.5 - HYPERLIPIDEMIA, UNSPECIFIED Status: Chronic (10) HTN (hypertension) Code(s): I10 - ESSENTIAL (PRIMARY) HYPERTENSION Status: Chronic Qualifiers: Hypertension type: essential hypertension Qualified Code(s): I10 - Essential (primary) hypertension (11) Obesity (BMI 30.0-34.9) Code(s): E66.9 - OBESITY, UNSPECIFIED Status: Chronic - Plan Plan: Continue cardiac monitoring. Trend troponins. Add-on Mg+ and TSH. Normal stress test 04/2019. Consult cardiology (Dr. Dos Santos). COVID testing pending. Tessalon perles for cough. Unable to obtain CTA due to renal function (has had SOB with exertion and chest pain). MonitorO2 sats. Venous doppler to rule out DVT. Nephrology consulted, given reduced renal function. Gentle IV hydration ordered. Monitor BP. Reconcile home medications once verified. Monitor glucose. Initiate sliding scale. NPO after midnight. UCx pending. Given presence of blood, flank pain and reduced renal function will obtain CT stone protocol. Stool softeners for constipation. GI prophylaxis with Famotidine. CODE STATUS FULL Surrogate decision maker: Her daughter Cande Laura.
[2019-12-07 03:01] LABS: #Basophils 0.1 thou/uL (0.0-0.2); #Eosinphils 0.5 thou/uL (0.0-0.7); #Lymphocytes 3.4 thou/uL (1.20-3.40); #Monocytes 0.7 thou/uL (0.11-0.59); #Neutrophils 4.6 thou/uL (1.40-6.50); %Basophils 0.9 % (0.0-1.0); %Lymphocytes 36.3 % (21.0-51.0); %Monocytes 7.2 % (0.0-10.0); %Neutrophils 49.6 % (42.0-75.0); Hemoglobin 11.2 g/dL (12.0-16.0); Mean Corpuscular HGB CONC 35.8 g/dL (32.0-36.0); Mean Corpuscular Hemoglobin 32.1 pg (27.0-31.0); Mean Corpuscular Volume 89.7 fL (78.0-98.0); Mean Platelet Volume 6.7 fL (7.4-10.4); Platelet Count 369 thou/uL (130-400); RBC Distribution Width 11.3 % (11.5-14.5); Red Blood Cell (RBC) Count 3.48 mill/uL (4.20-5.40); White Blood Cell (WBC) Count 9.2 thou/uL (4.8-10.8)
[2019-12-07 03:13] LABS: Lactic Acid 1.1 mmol/L (0.5-2.2)
[2019-12-07 03:22] LABS: Troponin I 0.085 ng/mL (< 0.028)
[2019-12-07 03:39] LABS: Anion Gap 11 mmol/L (10-20); BUN (Urea Nitrogen) 25 mg/dL (7.0-18.7); Calc. Creatinine Clearance 45 mL/min (70-130); Calcium 8.1 mg/dL (7.8-10.44); Carbon Dioxide 22 mmol/L (22-29); Cardiac Risk 8.1 (Less than 4.5); Chloride 107 mmol/L (98-107); Cholesterol 283 mg/dl (< 200 Desired); Estimated GFR-MDRD 24; Glucose 295 mg/dL (70-105); HDL Cholesterol 35 mg/dL (>60 Neg Risk); LDL Cholesterol, Calculated 172 mg/dL; Sodium 136 mmol/L (136-145); Triglycerides 382 mg/dL (Less than 150)
[2019-12-07] MEDS: HumaLOG 300 UNITS/3 ML VIAL SC PRN ×4 (05:34→22:34)
[2019-12-07] MEDS: Acetaminophen 325 MG TAB PO PRN ×4 (05:40→22:33)
--- NOTE | 2019-12-07 07:59 | ULT ---
PRELIMINARY REPORT/[facility]/EMERGENCY AFTER HOURS PROCEDURE EXAM: US Duplex bilateral Lower Extremity Veins. CLINICAL HISTORY: BLE pain/edema TECHNIQUE: Real-time ultrasound scan of the veins of the bilateral lower extremity with color Doppler flow, spectral waveform analysis and compression. COMPARISON: None provided. FINDINGS: DEEP VEINS: The common femoral, femoral, and popliteal veins are echolucent and compressible. These v essels demonstrate respiratory variation and augmentation. There is normal color Doppler flow through out. The visualized calf veins are also patent. SUPERFICIAL VEINS: The visualized greater saphenous vein is patent. SOFT TISSUES: No popliteal fossa cyst or other abnormalities. IMPRESSION: No deep venous thrombosis in the bilateral lower extremity. ELECTRONICALLY SIGNED BY: Federico York DO Dec 07, 2019 3:17:06 AM CDT FINAL REPORT BILATERAL LOWER EXTREMITY VENOUS DUPLEX ULTRASOUND: FINDINGS/IMPRESSION: I agree with the findings and impression given in the preliminary report per [facility] physici an. No evidence of deep vein thrombosis. POS: ZACHARY
--- NOTE | 2019-12-07 08:02 | CT ---
PRELIMINARY REPORT/[facility]/EMERGENCY AFTER HOURS PROCEDURE EXAM: CT Abdomen and Pelvis Without Intravenous Contrast CLINICAL HISTORY: ABD PAIN SUSPICION FOR OBSTRUCTIVE UROPATHY TECHNIQUE: Axial computed tomography images of the abdomen and pelvis without intravenous contrast. CONTRAST: None. COMPARISON: None provided. FINDINGS: LUNG BASES: No basilar airspace consolidation or pleural effusion. LIVER: The liver is enlarged measuring 18.2 cm in length. GALLBLADDER AND BILE DUCTS: Cholecystectomy clips. No ductal dilation. PANCREAS: Unremarkable. SPLEEN: Unremarkable. ADRENAL GLANDS: Unremarkable. KIDNEYS, URETERS, AND BLADDER: Unremarkable. No hydronephrosis or nephrolithiasis. No ureteral or victoria dder calculi. Diffuse bladder wall thickening. STOMACH AND BOWEL: No obstruction. No wall thickening. No CT evidence of colitis or acute diverticuli tis. Moderate fecal loading of the colon. Colonic diverticulosis. APPENDIX: No CT evidence for appendicitis. PERITONEUM: No free fluid. No free air. LYMPH NODES: No lymphadenopathy. REPRODUCTIVE: The uterus is absent. The ovaries appeared normal. VASCULATURE: No aortic aneurysm. Atherosclerosis. ABDOMINAL WALL AND SOFT TISSUES: Fat filled umbilical hernia. BONES: No fracture or suspicious osseous abnormality. Multilevel degenerative disc disease. IMPRESSION: No acute intra-abdominal or pelvic abnormality. No evidence of hydronephrosis. Hepatomeg bettie. Scattered colonic diverticulosis with no evidence of diverticulitis. Diffuse bladder wall thicke arielle which may be secondary to under distention or cystitis. Correlation with urinalysis is recommen ded. ELECTRONICALLY SIGNED BY: Sergio Pryor MD Dec 07, 2019 1:06:20 AM CDT FINAL REPORT EMERGENT AFTER HOURS CT OF THE ABDOMEN AND PELVIS WITHOUT CONTRAST: FINDINGS/IMPRESSION: I agree with the findings and impression given in the preliminary report per [facility] physici an. No evidence of acute intraabdominal/pelvic abnormality. POS: EAA
[2019-12-07] MEDS: Aspirin 81 mg Enteric Coated Tablet PO SCH (08:54)
[2019-12-07] MEDS: Famotidine/PF 20 mg/2ml Vial SLOW IVP SCH (08:54)
[2019-12-07] MEDS ORDERED: Furosemide 40 MG TAB PO SCH (09:00)
[2019-12-07] MEDS ORDERED: NIFEdipine XL 30 MG TAB PO SCH (11:30)
[2019-12-07] MEDS ORDERED: Metoprolol Tartrate 25 MG TAB PO SCH (11:45)
--- NOTE | 2019-12-07 13:00 | CON ---
DATE OF CONSULTATION: 12/07/2019 HISTORY OF PRESENT ILLNESS: Ms. Shelton is a 44-year-old female, who was admitted for dry cough and ?of fever. This was associated with chest wall discomfort. She also has an associated cough with this. We are now being consulted for her acute kidney injury on top of her chronic renal failure. Please note, this patient was seen in the [facility] back on July, but she was not able to do a followup. At that time, I made a diagnosis of chronic renal failure from diabetic nephropathy. REVIEW OF SYSTEMS: Positive for left-sided chest pain. No shortness of breath. Currently, denies any ongoing fever. No dysuria. No productive cough. No hematochezia. No melena. Appetite and energy level are fair. No headache. No diplopia. No syncopal episode. No sore throat. No dysuria. MEDICATIONS: 1. Tessalon Perles 100 mg p.o. q.4 p.r.n. 2. Famotidine 20 mg IV daily. 3. Humalog sliding scale. 4. Zofran 4 mg IV p.r.n. 5. Normal saline at 75 mL/h. Home medications included, 1. Levemir 50 units subcu b.i.d. 2. NovoLog FlexPen. 3. Lisinopril/hydrochlorothiazide 20/25 one tablet one a day. 4. Metoprolol tartrate 25 mg tablet b.i.d. 5. Ranitidine 50 mg once a day. PAST MEDICAL HISTORY: Chronic renal failure from diabetic nephropathy, type 2 diabetes mellitus, hypertension, depression. PAST SURGICAL HISTORY: Status post partial hysterectomy-history of abnormal Pap smear, status post cholecystectomy, status post UTI. SOCIAL HISTORY: The patient lives in [place]. She is single. She has 4 children. Currently, not working. No alcohol. No smoking. No drug abuse. ALLERGIES: ?MORPHINE. TRAUMA: None. IMMUNIZATIONS: Not up-to-date. HOSPITALIZATION: Please see past medical history. FAMILY HISTORY: No family history of ESRD. PHYSICAL EXAMINATION: VITAL SIGNS: Blood pressure 173/81, heart rate 84, respiratory rate 16, temperature 96.7, O2 saturation 98%. GENERAL: Awake, alert, comfortable, not in distress. SKIN: Adequate turgor. HEENT: She has pinkish conjunctivae. Anicteric sclerae. NECK: No neck mass. No carotid bruits. No JVD. CHEST: No deformities. LUNGS: Clear breath sounds. HEART: Normal sinus rhythm. No murmurs, no gallops, no rubs. ABDOMEN: Globular, soft, nontender. No masses. EXTREMITIES: No edema. No deformities. NEUROLOGICAL: Moving all extremities. No tremors. No asterixis. No ataxia. LABORATORY DATA: Laboratories of December 07, 2019; white count 9.2, hemoglobin 11.2. Sodium 136, potassium 4, chloride 107, carbon dioxide 22, BUN 25, creatinine 2.19, glucose 295, calcium 8.1. Further review of her serum creatinine shows the following, December 06, 2019; BUN 28, creatinine 2.38. May 26, 2019; creatinine was 1.73. Urinalysis of December 06, 2019, showed specific gravity of 1.015, protein is 600. Rbc is noted at 0 to 3, wbc 7 to 10. IMAGING STUDIES: CT scan of the abdomen and pelvis on December 07, 2019, shows no acute intra-abdominal or pelvic abnormality. There is scattered colonic diverticulosis with no evidence of diverticulitis. There is diffuse bladder wall thickening. Chest x-ray of December 06, 2019, showed no acute process. ASSESSMENT AND PLAN: 1. Acute kidney injury on top of her chronic renal failure-I suspect she has a hemodynamically-mediated renal dysfunction. Slight improvement of the creatinine noted in the last 24 hours. Continue IV hydration. Attempt to bring creatinine to baseline. Baseline is about between 1.5 and 1.7. There is no indication for any dialytic intervention. 2. Chronic renal failure. She does have longstanding history of diabetes mellitus and proteinuria. She most likely has diabetic nephropathy. Overall, agree with current management. Job ID: [id number]
--- NOTE | 2019-12-07 16:50 | PDOC.HOSPP ---
- Subjective Encounter Date: 12/07/19 Encounter Time: 16:35 Subjective: f/u for dyspnea and suspected UTI with pending Ucx. No abx currently. - Objective Vital Signs & Weight: Vital Signs (12 hours) Temp Pulse Resp BP Pulse Ox 12/07/19 12:15 96.6 F L 84 11 L 188/74 H 97 12/07/19 09:05 96.7 F L 84 16 173/81 H 98 Weight Weight 189 lb 3.2 oz I&O: 12/06/19 12/07/19 12/08/19 06:59 06:59 06:59 Intake Total 1125 1042 Output Total 900 1015 Balance 225 27 Result Diagrams: 12/07/19 02:49 12/07/19 02:49 Additional Labs: Accuchecks 12/07/19 12/07/19 12:10 05:37 POC Glucose 307 H 251 H Radiology Reviewed by me: Yes (PCXR - no acute process) EKG Reviewed by me: Yes (Tele - SR) Hospitalist ROS - Medication Medications: Active Medications Generic Name Dose Route Start Last Admin Trade Name Freq PRN Reason Stop Dose Admin Acetaminophen 650 mg 12/07/19 00:22 12/07/19 12:15 Tylenol PO 650 mg Q4H PRN Administration Headache/Fever/Mild Pain (1-3) Aspirin 81 mg 12/07/19 09:00 12/07/19 08:54 Ecotrin PO 81 mg DAILY ROBBY Administration Famotidine 20 mg 12/07/19 09:00 12/07/19 08:54 Pepcid SLOW IVP 20 mg DAILY ROBBY Administration Insulin Human Lispro 0 units 12/07/19 00:24 12/07/19 12:15 Humalog SC 5 unit .MILD SLIDING SCALE PRN Administration Mild Correctional Scale Ondansetron HCl 4 mg 12/07/19 00:22 12/07/19 12:15 Zofran IVP 4 mg Q6H PRN Administration Nausea/Vomiting Sodium Chloride 10 ml 12/07/19 09:00 12/07/19 08:54 Flush - Normal Saline IVF 10 ml Q12HR ROBBY Administration - Exam General Appearance: NAD, awake alert Eye: PERRL, anicteric sclera ENT: normocephalic atraumatic, no oropharyngeal lesions Neck: supple, symmetric, no JVD, no thyromegaly, no lymphadenopathy Heart: RRR, no murmur, no gallops, no rubs, normal peripheral pulses Respiratory: CTAB, no wheezes, no rales, no ronchi, normal chest expansion Gastrointestinal: soft, non-tender, non-distended, normal bowel sounds, no palpable masses Gastrointestinal - other findings: L flank TTP, mild LLQ tender Extremities: no cyanosis, no clubbing, no edema Skin: normal turgor, no lesions Neurological: cranial nerve grossly intact, no focal deficits, no new deficit Musculoskeletal: normal tone, normal strength Psychiatric: normal affect, A&O x 3 Hosp A/P (1) Lazpy-pj-bkvramb kidney injury Code(s): N17.9 - ACUTE KIDNEY FAILURE, UNSPECIFIED; N18.9 - CHRONIC KIDNEY DISEASE, UNSPECIFIED Status: Acute Plan: Slow improvement, continue IVF's, avoid nephrotoxic meds and limit contrast, serial creatinine (2) Suspected COVID-19 virus infection Code(s): Z20.828 - CONTACT W AND EXPOSURE TO [facility] VIRAL COMMUNICABLE DISEASES Status: Acute Plan: COVID-19 r/o, resp isolation (3) Suspected UTI Code(s): R39.89 - OTHER SYMPTOMS AND SIGNS INVOLVING THE GENITOURINARY SYSTEM Status: Acute Plan: Start Rocephin 1 gm IV daily (4) DM (diabetes mellitus) type II controlled, neurological manifestation Code(s): E11.49 - TYPE 2 DIABETES W OTH DIABETIC NEUROLOGICAL COMPLICATION Status: Chronic Plan: ISS, serial accuchecks, ADA (5) HTN (hypertension) Code(s): I10 - ESSENTIAL (PRIMARY) HYPERTENSION Status: Chronic Qualifiers: Hypertension type: essential hypertension Qualified Code(s): I10 - Essential (primary) hypertension Plan: Labile, resume home BP regimen (6) Obesity (BMI 30.0-34.9) Code(s): E66.9 - OBESITY, UNSPECIFIED Status: Chronic (7) Constipation Code(s): K59.00 - CONSTIPATION, UNSPECIFIED Status: Acute Qualifiers: Constipation type: slow transit constipation Qualified Code(s): K59.01 - Slow transit constipation Plan: Magnesium citrate today - Plan continue antibiotics, psych social worker, respiratory therapy, out of bed/ambulate , DVT proph w/SCDs Stable currently Continue low-volume IVF's Start Rocephin 1gm IV daily Await final COVID-19 PCR Mag Citrate today AM lab: BMP
[2019-12-07 17:29] LABS: SARS-CoV-2 MS2 Positive; SARS-CoV-2 N Gene Negative; SARS-CoV-2 S Gene Negative; SARS-CoV-2 orf1ab Negative
[2019-12-07] MEDS ORDERED: Magnesium Citrate 300 ML BOT PO SCH (17:45)
[2019-12-07] MEDS: cefTRIAXone\\ROCEPHIN 1 GM in Sodium Chloride 0.9% 100 ML IVPB SCH (18:36)
[2019-12-07] MEDS ORDERED: Non-Formulary Item 1 EACH (Insulin Detemir [Levemir] 50 UNIT) SQ SCH (21:00)
[2019-12-07] MEDS: Atorvastatin Calcium 40 MG TAB PO SCH (21:40)
[2019-12-07] MEDS: Metoprolol Tartrate 25 MG TAB PO SCH (21:40)
[2019-12-07] MEDS: Insulin Glargine 50 UNITS in Pre-Filled Syringe SC SCH (21:40)
--- NOTE | 2019-12-08 00:22 | CON ---
DATE OF CONSULTATION: HISTORY OF PRESENT ILLNESS: The patient is a 44-year-old woman with a history of hypertension and diabetes mellitus, who presented with abdominal discomfort, who was noted to have an elevated troponin level. The patient was seen at the end of last year with chest pain. She underwent a Cardiolite stress test, which revealed normal left systolic function with no evidence of ischemia. The patient presented to the emergency room with abdominal discomfort and was noted to have a slight elevation of troponin. The patient denies having any chest discomfort. She reports feeling slightly dyspneic. She denies having any PND or orthopnea. The patient has multiple cardiac risk factors including hypertension, diabetes mellitus, and dyslipidemia. PAST SURGICAL HISTORY: Hysterectomy and cholecystectomy. SOCIAL HISTORY: Nonsmoker. FAMILY HISTORY: Positive family history of heart disease. MEDICATIONS: 1. Metoprolol 25 b.i.d. 2. Aspirin 81 daily. 3. Insulin. ALLERGIES: NO KNOWN DRUG ALLERGIES. FAMILY HISTORY: Strong family history of heart disease. REVIEW OF SYSTEMS: Ten-point system otherwise unremarkable. PHYSICAL EXAMINATION: GENERAL: Reveals an obese woman, in no acute distress. VITAL SIGNS: Blood pressure is 188/74. NECK: Showed no jugular venous distention. LUNGS: Clear to auscultation. HEART: Regular rate and rhythm. Normal S1 and S2. ABDOMEN: Distended. EXTREMITIES: Showed mild edema. LABORATORY RESULTS: Sodium 136, potassium 4.0, chloride 107, bicarbonate 22, BUN 25, creatinine 2.1, and glucose 289. BNP was 90. White blood cell count 9.2, hemoglobin 11.2, hematocrit 31.2, and platelets are 369. EKG Normal sinus rhythm with poor R-wave progression. IMPRESSION: 1. Hypertensive crisis. 2. Diabetes mellitus. 3. Dyslipidemia. 4. Renal failure. 5. Indeterminate troponin level. PLAN: This patient presents primarily with a hypertensive crisis. It is imperative this patient have improved control of her hypertension. The patient has been started on nifedipine. We will increase the dose of this medication. We will follow this patient with you through her hospitalization. Job ID: [id number] MTDD
[2019-12-08 04:45] LABS: Anion Gap 9 mmol/L (10-20); BUN (Urea Nitrogen) 26 mg/dL (7.0-18.7); Calc. Creatinine Clearance 43 mL/min (70-130); Calcium 7.8 mg/dL (7.8-10.44); Carbon Dioxide 24 mmol/L (22-29); Chloride 104 mmol/L (98-107); Estimated GFR-MDRD 23; Glucose 202 mg/dL (70-105); Potassium 3.9 mmol/L (3.5-5.1); Sodium 133 mmol/L (136-145)
[2019-12-08] MEDS: HumaLOG 300 UNITS/3 ML VIAL SC PRN ×4 (06:28→20:54)
[2019-12-08] MEDS: Aspirin 81 mg Enteric Coated Tablet PO SCH (08:52)
[2019-12-08] MEDS: Famotidine/PF 20 mg/2ml Vial SLOW IVP SCH (08:52)
[2019-12-08] MEDS: NIFEdipine XL 30 MG TAB PO SCH (08:52)
[2019-12-08] MEDS: Metoprolol Tartrate 25 MG TAB PO SCH ×2 (08:52→20:55)
[2019-12-08] MEDS: Insulin Glargine 50 UNITS in Pre-Filled Syringe SC SCH ×2 (08:53→20:54)
[2019-12-08] MEDS: Albumin 25% 25 GM/100 ML BOT IVPB SCH ×3 (08:53→20:55)
[2019-12-08] MEDS ORDERED: NIFEdipine XL 30 MG TAB PO SCH (09:00)
--- NOTE | 2019-12-08 09:10 | PRG ---
DATE OF SERVICE: 12/08/2019 SUBJECTIVE: Ms. Shelton is a 44-year-old female who was seen for her chronic renal failure secondary to presumed diabetic nephropathy. Creatinine remains unimproved in the last 2 days. She denies any new complaints except for some left-sided chest pain. The patient denies any shortness of breath. The patient also ruled out for COVID. Her chest x-ray on December 06, 2019, showed no acute processes. OBJECTIVE: VITAL SIGNS: Blood pressure is 180/82, heart rate 82, respiratory rate 17, temperature 97.7, O2 saturation 98%. GENERAL: The patient is awake, alert, comfortable, not in distress. SKIN: Adequate turgor. HEENT: Pinkish conjunctivae. Anicteric sclerae. No neck mass. No carotid bruits. No JVD. CHEST: No deformities. LUNGS: Decreased breath sounds. HEART: Normal sinus rhythm. No murmurs, gallops, or rubs. ABDOMEN: Globular, soft, nontender. No masses. EXTREMITIES: Positive for edema. MEDICATIONS: Medications on December 08, 2019, were reviewed. LABORATORY DATA: Laboratories on December 07, 2019, white count 9.2, hemoglobin 11.2. On December 08, 2019; sodium 133, potassium 3.9, chloride 104, carbon dioxide 24, BUN 26, creatinine 2.29, glucose 202, calcium 7.8. COVID-19 is negative. Urinalysis of December 06, 2019, showed a protein of 600, rbc's 0 to 3, wbc 7 to 10. In addition, a CT scan of the abdomen and pelvis on December 07, 2019, showed that the kidneys were unremarkable without any evidence of obstruction. ASSESSMENT AND PLAN: 1. Chronic renal failure/acute kidney injury, underlying diabetic nephropathy. Again, there may be a component of prerenal azotemia. We will start albumin 25 g IV q.6 for four doses. No indication for any dialytic intervention. We will recheck basic metabolic panel in a.m. 2. Hypertension. Adjusting blood pressure medications as needed. Job ID: [id number]
--- NOTE | 2019-12-08 10:43 | PDOC.HOSPP ---
- Subjective Encounter Date: 12/08/19 Encounter Time: 10:40 Subjective: f/u for TWAN/CKD with no improvement in renal function with IVF's. Plan for Albumin infusion. No new complaints. - Objective Vital Signs & Weight: Vital Signs (12 hours) Temp Pulse Resp BP BP BP Pulse Ox 12/08/19 08:52 82 12/08/19 07:55 97.7 F 82 17 180/82 H 98 12/08/19 04:16 98.3 F 72 13 113/54 L 99 12/07/19 23:45 82 143/70 H Weight Weight 189 lb 3.2 oz I&O: 12/07/19 12/08/19 12/09/19 06:59 06:59 06:59 Intake Total 1125 1247 Output Total 900 1595 Balance 225 -348 Result Diagrams: 12/07/19 02:49 12/08/19 03:59 Additional Labs: Accuchecks 12/08/19 12/07/19 12/07/19 06:21 21:29 17:05 POC Glucose 237 H 318 H 348 H 12/07/19 12:10 POC Glucose 307 H Radiology Reviewed by me: Yes (BLE venous dopp - negative for DVT) EKG Reviewed by me: Yes (Tele - SR) Hospitalist ROS - Medication Medications: Active Medications Generic Name Dose Route Start Last Admin Trade Name Freq PRN Reason Stop Dose Admin Acetaminophen 650 mg 12/07/19 00:22 12/07/19 22:33 Tylenol PO 650 mg Q4H PRN Administration Headache/Fever/Mild Pain (1-3) Albumin Human 25 gm 12/08/19 09:00 12/08/19 08:53 Albumin 25% IVPB 12/09/19 03:01 25 gm 0300,0900,1500,2100 ROBBY Administration Aspirin 81 mg 12/07/19 09:00 12/08/19 08:52 Ecotrin PO 81 mg DAILY ROBBY Administration Atorvastatin Calcium 40 mg 12/07/19 21:00 12/07/19 21:40 Lipitor PO 40 mg HS ROBBY Administration Famotidine 20 mg 12/07/19 09:00 12/08/19 08:52 Pepcid SLOW IVP 20 mg DAILY ROBBY Administration Ceftriaxone Sodium 1 gm/ 100 mls @ 200 mls/hr 12/07/19 18:00 12/07/19 18:36 Sodium Chloride IVPB 100 mls Q24HR ROBBY Administration Insulin Glargine 50 units/ 0.5 mls @ 0 mls/hr 12/07/19 21:00 12/08/19 08:53 Miscellaneous Medication SC 0.5 mls BID ROBBY Administration Insulin Human Lispro 0 units 12/07/19 00:24 12/08/19 06:28 Humalog SC 3 unit .MILD SLIDING SCALE PRN Administration Mild Correctional Scale Insulin Human Lispro 0 units 12/07/19 00:24 12/07/19 22:34 Humalog SC 4 unit .BEDTIME SLIDING SC PRN Administration Bedtime Correctional Scale Metoprolol Tartrate 25 mg 12/07/19 21:00 12/08/19 08:52 Lopressor PO 25 mg BID ROBBY Administration Nifedipine 60 mg 12/08/19 09:00 12/08/19 08:52 Procardia Xl PO 60 mg DAILY ROBBY Administration Ondansetron HCl 4 mg 12/07/19 00:22 12/07/19 12:15 Zofran IVP 4 mg Q6H PRN Administration Nausea/Vomiting Sodium Chloride 10 ml 12/07/19 09:00 12/07/19 21:41 Flush - Normal Saline IVF 10 ml Q12HR ROBBY Administration - Exam General Appearance: NAD, awake alert Eye: PERRL, anicteric sclera ENT: normocephalic atraumatic, no oropharyngeal lesions Neck: supple, symmetric, no JVD, no thyromegaly, no lymphadenopathy Heart: RRR, no murmur, no gallops, no rubs, normal peripheral pulses Heart - other findings: S1, S2 Respiratory: CTAB, no wheezes, no rales, no ronchi, normal chest expansion Gastrointestinal: soft, non-distended, normal bowel sounds, no palpable masses, no guarding Extremities: no cyanosis, no clubbing, no edema Skin: normal turgor, no lesions Neurological: cranial nerve grossly intact, no new deficit Musculoskeletal: normal tone, normal strength, no muscle wasting Psychiatric: normal affect, A&O x 3 Hosp A/P (1) Vvaua-ht-wmaobeo kidney injury Code(s): N17.9 - ACUTE KIDNEY FAILURE, UNSPECIFIED; N18.9 - CHRONIC KIDNEY DISEASE, UNSPECIFIED Status: Acute Plan: No improvement with IVF's, trial of Albumin infusion, avoid nephrotoxic meds and limit contrast exposure (2) Suspected COVID-19 virus infection Code(s): Z20.828 - CONTACT W AND EXPOSURE TO [facility] VIRAL COMMUNICABLE DISEASES Status: Acute Plan: ruled out with negative PCR (3) Suspected UTI Code(s): R39.89 - OTHER SYMPTOMS AND SIGNS INVOLVING THE GENITOURINARY SYSTEM Status: Acute Plan: No Ucx available, continue Rocephin 1gm IV daily (4) DM (diabetes mellitus) type II controlled, neurological manifestation Code(s): E11.49 - TYPE 2 DIABETES W OTH DIABETIC NEUROLOGICAL COMPLICATION Status: Chronic (5) HTN (hypertension) Code(s): I10 - ESSENTIAL (PRIMARY) HYPERTENSION Status: Chronic Qualifiers: Hypertension type: essential hypertension Qualified Code(s): I10 - Essential (primary) hypertension (6) Obesity (BMI 30.0-34.9) Code(s): E66.9 - OBESITY, UNSPECIFIED Status: Chronic (7) Constipation Code(s): K59.00 - CONSTIPATION, UNSPECIFIED Status: Acute Qualifiers: Constipation type: slow transit constipation Qualified Code(s): K59.01 - Slow transit constipation Plan: Improved with BM's - Plan continue antibiotics, drug abuse social worker, out of bed/ambulate Stable currently Continue low-volume IVF's Trial of Albumin infusion Continue Rocephin 1gm IV daily COVID-19 PCR negative AM lab: BMP, CBC
[2019-12-08] MEDS: cefTRIAXone\\ROCEPHIN 1 GM in Sodium Chloride 0.9% 100 ML IVPB SCH (18:07)
[2019-12-08] MEDS: Acetaminophen 325 MG TAB PO PRN (20:53)
[2019-12-08] MEDS: Atorvastatin Calcium 40 MG TAB PO SCH (20:55)
[2019-12-09] MEDS: Albumin 25% 25 GM/100 ML BOT IVPB SCH ×3 (03:46→17:27)
[2019-12-09 05:00] LABS: #Basophils 0.1 thou/uL (0.0-0.2); #Eosinphils 0.4 thou/uL (0.0-0.7); #Lymphocytes 3.6 thou/uL (1.20-3.40); #Monocytes 0.6 thou/uL (0.11-0.59); #Neutrophils 4.4 thou/uL (1.40-6.50); %Basophils 0.9 % (0.0-1.0); %Eosinophils 4.7 % (0.0-10.0); %Lymphocytes 39.7 % (21.0-51.0); %Neutrophils 48.6 % (42.0-75.0); Hemoglobin 10.1 g/dL (12.0-16.0); Mean Corpuscular HGB CONC 34.6 g/dL (32.0-36.0); Mean Corpuscular Volume 89.5 fL (78.0-98.0); Platelet Count 382 thou/uL (130-400); RBC Distribution Width 11.1 % (11.5-14.5); Red Blood Cell (RBC) Count 3.25 mill/uL (4.20-5.40); White Blood Cell (WBC) Count 9.1 thou/uL (4.8-10.8)
[2019-12-09 05:21] LABS: Anion Gap 14 mmol/L (10-20); BUN (Urea Nitrogen) 31 mg/dL (7.0-18.7); Calc. Creatinine Clearance 46 mL/min (70-130); Calcium 8.2 mg/dL (7.8-10.44); Carbon Dioxide 22 mmol/L (22-29); Chloride 105 mmol/L (98-107); Estimated GFR-MDRD 25; Glucose 94 mg/dL (70-105); Potassium 3.8 mmol/L (3.5-5.1); Sodium 137 mmol/L (136-145)
[2019-12-09] MEDS: Aspirin 81 mg Enteric Coated Tablet PO SCH (08:49)
[2019-12-09] MEDS: Metoprolol Tartrate 25 MG TAB PO SCH ×2 (08:49→20:51)
[2019-12-09] MEDS: Famotidine/PF 20 mg/2ml Vial SLOW IVP SCH (08:49)
[2019-12-09] MEDS: NIFEdipine XL 30 MG TAB PO SCH (08:49)
[2019-12-09] MEDS: Senokot S 8.6-50 MG TAB PO PRN (08:49)
[2019-12-09] MEDS: Insulin Glargine 50 UNITS in Pre-Filled Syringe SC SCH ×2 (08:50→20:54)
[2019-12-09] MEDS ORDERED: Albumin 25% 25 GM/100 ML BOT IVPB ONE (10:23)
--- NOTE | 2019-12-09 11:57 | PRG ---
DATE OF SERVICE: 12/09/2019 SUBJECTIVE: Ms. Shelton is a 44-year-old female with chronic renal failure from diabetic nephropathy. Renal function has been worsening. We started her on albumin yesterday and the creatinine has stabilized or maybe became minimally improved. My plan is to give her another day of IV albumin. If renal function is much better in a.m., consider discharge and we will follow her up at the [facility]. No new complaints. No chest pain or shortness of breath. OBJECTIVE: VITAL SIGNS: Blood pressure 145/67, heart rate 80, respiratory rate 16, temperature 98.3, and O2 saturation 99% on room air. GENERAL: Awake and alert, sitting comfortable, obese, not in distress. SKIN: Adequate turgor. HEENT: She has pinkish conjunctivae. Anicteric sclerae. NECK: No neck mass. No carotid bruits. No JVD. CHEST: No deformities. LUNGS: Clear breath sounds. No wheezing. No crackles. HEART: Normal sinus rhythm. No murmur. No gallops. No rubs. ABDOMEN: Globular, soft, and nontender. No masses. EXTREMITIES: No edema. No deformities. MEDICATIONS: Medications of 12/09/2019 were reviewed. LABORATORY DATA: On 12/09/2019: White count 9.1 and hemoglobin 10.1. Sodium 137, potassium 3.8, chloride 105, carbon dioxide 22, BUN 31, creatinine 2.13, glucose 94, and calcium 8.2. ASSESSMENT AND PLAN: Acute kidney injury/chronic renal failure, slightly improved creatinine from 2.29 to 2.13. We will give her another of albumin infusion. If the renal function stabilizes or continues to improve, we can consider discharging the patient and we will follow her up at the Renal Clinic. No indication for any dialytic intervention. Agree with current management. Recheck CBC and basic metabolic in a.m. Job ID: [id number]
--- NOTE | 2019-12-09 15:06 | PDOC.CPN ---
- Subjective Date: 12/09/19 Time: 10:00 Interval history: Patient without complaints. No changes overnight. BP controlled. - Review of Systems General: denies: fever/chills, weight/appetite/sleep changes, night sweats, fatigue Respiratory: denies: cough, congestion, shortness of breath, exercise intolerance Cardiovascular: denies: chest pain, palpitation, edema, paroxysmal nocturnal dyspnea, orthopnea Gastrointestinal: denies: nausea, vomiting, diarrhea, constipation, abd pain, GI bleeding Musculoskeletal: denies: pain, tenderness, stiffness, swelling, arthritis/ arthralgias Neurological: denies: numbness, syncope, seizure, weakness - Objective Allergies/Adverse Reactions: Allergies Allergy/AdvReac Type Severity Reaction Status Date / Time morphine Allergy Severe itching Verified 12/07/19 00:02 Visit Medications: Current Medications Acetaminophen (Tylenol) 650 mg PO Q4H PRN PRN Reason: Headache/Fever/Mild Pain (1-3) Last Admin: 12/08/19 20:53 Dose: 650 mg Acetaminophen (Tylenol) 650 mg MT Q4H PRN PRN Reason: Headache/Fever/Mild Pain (1-3) Albumin Human (Albumin 25%) 25 gm IVPB Q6HR [facility] Stop: 12/10/19 06:01 Last Admin: 12/09/19 13:04 Dose: 25 gm Aspirin (Ecotrin) 81 mg PO DAILY [facility] Last Admin: 12/09/19 08:49 Dose: 81 mg Atorvastatin Calcium (Lipitor) 40 mg PO HS [facility] Last Admin: 12/08/19 20:55 Dose: 40 mg Benzonatate (Tessalon) 100 mg PO Q4H PRN PRN Reason: Cough Dextrose/Water (Dextrose 50%) 25 gm SLOW IVP PRN PRN PRN Reason: Hypoglycemia Famotidine (Pepcid) 20 mg SLOW IVP DAILY [facility] Last Admin: 12/09/19 08:49 Dose: 20 mg Glucagon (Glucagon) 1 mg IM PRN PRN PRN Reason: Hypoglycemia Dextrose/Water (D5w) 1,000 mls @ 0 mls/hr IV .Q0M PRN PRN Reason: Hypoglycemia Ceftriaxone Sodium 1 gm/ (Sodium Chloride) 100 mls @ 200 mls/hr IVPB Q24HR [facility] Last Admin: 12/08/19 18:07 Dose: 100 mls Insulin Glargine 50 units/ (Miscellaneous Medication) 0.5 mls @ 0 mls/hr SC BID [facility] Last Admin: 12/09/19 08:50 Dose: 0.5 mls Insulin Human Lispro (Humalog) 0 units SC .MILD SLIDING SCALE PRN PRN Reason: Mild Correctional Scale Last Admin: 12/08/19 18:07 Dose: 5 unit Insulin Human Lispro (Humalog) 0 units SC .BEDTIME SLIDING SC PRN PRN Reason: Bedtime Correctional Scale Last Admin: 12/08/19 20:54 Dose: 5 unit Metoprolol Tartrate (Lopressor) 25 mg PO BID [facility] Last Admin: 12/09/19 08:49 Dose: 25 mg Nifedipine (Procardia Xl) 60 mg PO DAILY [facility] Last Admin: 12/09/19 08:49 Dose: 60 mg Nitroglycerin (Nitrostat) 0.4 mg PO Q5MIN PRN PRN Reason: Chest Pain Ondansetron HCl (Zofran Odt) 4 mg PO Q6H PRN PRN Reason: Nausea/Vomiting Ondansetron HCl (Zofran) 4 mg IVP Q6H PRN PRN Reason: Nausea/Vomiting Last Admin: 12/07/19 12:15 Dose: 4 mg Senna/Docusate Sodium (Senokot S) 2 tab PO BID PRN PRN Reason: Constipation Last Admin: 12/09/19 08:49 Dose: 2 tab Sodium Chloride (Flush - Normal Saline) 10 ml IVF Q12HR [facility] Last Admin: 12/09/19 08:52 Dose: 10 ml Sodium Chloride (Flush - Normal Saline) 10 ml IVF PRN PRN PRN Reason: Saline Flush Vital Signs & Weight: Vital Signs Temp Pulse Resp BP BP Pulse Ox 12/09/19 12:40 98.5 F 76 18 131/58 L 99 12/09/19 08:39 98.3 F 80 16 145/67 H 99 12/09/19 04:00 97.6 F 70 20 134/69 99 Weight 189 lb 3.2 oz - Physical Exam General: alert & oriented x3, appears well HEENT: mucus membranes moist Neck: supple neck Cardiac: regular rate and rhythm Lungs: clear to auscultation Neuro: grossly intact Abdomen: soft, non-tender Extremities: no edema Skin: clear - Labs Result Diagrams: 12/09/19 04:12 12/09/19 04:12 Troponin/CKMB CK-MB (CK-2) 1.5 ng/mL (0-6.6) 12/06/19 20:09 Troponin I 0.085 ng/mL (< 0.028) H 12/07/19 02:49 - Assessment/Plan Assessment/Plan: 1. HTN Urgency 2. Elevated Trop 3. DARIAN Improved BP control. No changes from my part.
[2019-12-09] MEDS: cefTRIAXone\\ROCEPHIN 1 GM in Sodium Chloride 0.9% 100 ML IVPB SCH (17:26)
[2019-12-09] MEDS: HumaLOG 300 UNITS/3 ML VIAL SC PRN (17:27)
[2019-12-09] MEDS ORDERED: Bisacodyl 5 MG TAB PO SCH (18:15)
--- NOTE | 2019-12-09 18:20 | PDOC.HOSPP ---
- Subjective Encounter Date: 12/09/19 Subjective: Complains of abdominal pain after eating and also complains of constipation. - Objective Vital Signs & Weight: Vital Signs (12 hours) Temp Pulse Resp BP BP Pulse Ox 12/09/19 16:03 98.1 F 82 18 148/67 H 98 12/09/19 12:40 98.5 F 76 18 131/58 L 99 12/09/19 08:39 98.3 F 80 16 145/67 H 99 Weight Weight 189 lb 3.2 oz I&O: 12/08/19 12/09/19 12/10/19 06:59 06:59 06:59 Intake Total 1247 240 Output Total 1595 Balance -348 240 Result Diagrams: 12/09/19 04:12 12/09/19 04:12 Additional Labs: Accuchecks 12/09/19 12/09/19 12/08/19 17:07 05:59 20:22 POC Glucose 261 H 123 H 362 H Hospitalist ROS - Medication Medications: Active Medications Generic Name Dose Route Start Last Admin Trade Name Freq PRN Reason Stop Dose Admin Acetaminophen 650 mg 12/07/19 00:22 12/08/19 20:53 Tylenol PO 650 mg Q4H PRN Administration Headache/Fever/Mild Pain (1-3) Albumin Human 25 gm 12/09/19 12:00 12/09/19 17:27 Albumin 25% IVPB 12/10/19 06:01 25 gm Q6HR ROBBY Administration Aspirin 81 mg 12/07/19 09:00 12/09/19 08:49 Ecotrin PO 81 mg DAILY ROBBY Administration Atorvastatin Calcium 40 mg 12/07/19 21:00 12/08/19 20:55 Lipitor PO 40 mg HS ROBBY Administration Famotidine 20 mg 12/07/19 09:00 12/09/19 08:49 Pepcid SLOW IVP 20 mg DAILY ROBBY Administration Ceftriaxone Sodium 1 gm/ 100 mls @ 200 mls/hr 12/07/19 18:00 12/09/19 17:26 Sodium Chloride IVPB 100 mls Q24HR ROBBY Administration Insulin Glargine 50 units/ 0.5 mls @ 0 mls/hr 12/07/19 21:00 12/09/19 08:50 Miscellaneous Medication SC 0.5 mls BID ROBBY Administration Insulin Human Lispro 0 units 12/07/19 00:24 06/13/20 17:27 Humalog SC 4 unit .MILD SLIDING SCALE PRN Administration Mild Correctional Scale Insulin Human Lispro 0 units 12/07/19 00:24 12/08/19 20:54 Humalog SC 5 unit .BEDTIME SLIDING SC PRN Administration Bedtime Correctional Scale Metoprolol Tartrate 25 mg 12/07/19 21:00 12/09/19 08:49 Lopressor PO 25 mg BID ROBBY Administration Nifedipine 60 mg 12/08/19 09:00 12/09/19 08:49 Procardia Xl PO 60 mg DAILY ROBBY Administration Ondansetron HCl 4 mg 12/07/19 00:22 12/07/19 12:15 Zofran IVP 4 mg Q6H PRN Administration Nausea/Vomiting Senna/Docusate Sodium 2 tab 12/07/19 00:22 12/09/19 08:49 Senokot S PO 2 tab BID PRN Administration Constipation Sodium Chloride 10 ml 12/07/19 09:00 12/09/19 08:52 Flush - Normal Saline IVF 10 ml Q12HR ROBBY Administration - Exam General Appearance: awake alert Eye: PERRL ENT: normocephalic atraumatic Neck: supple, no JVD Heart: RRR, no murmur, no gallops, no rubs Respiratory: CTAB, no wheezes, no rales, no ronchi Gastrointestinal: soft, non-tender, non-distended Hosp A/P - Plan Hosp A/P (1) Hbfwi-jy-zomhdhi kidney injury Code(s): N17.9 - ACUTE KIDNEY FAILURE, UNSPECIFIED; N18.9 - CHRONIC KIDNEY DISEASE, UNSPECIFIED Status: Acute Plan: No improvement with IVF's, trial of Albumin infusion, avoid nephrotoxic meds and limit contrast exposure (2) Suspected COVID-19 virus infection Code(s): Z20.828 - CONTACT W AND EXPOSURE TO [facility] VIRAL COMMUNICABLE DISEASES Status: Acute Plan: ruled out with negative PCR (3) Suspected UTI Code(s): R39.89 - OTHER SYMPTOMS AND SIGNS INVOLVING THE GENITOURINARY SYSTEM Status: Acute Plan: No Ucx available, continue Rocephin 1gm IV daily (4) DM (diabetes mellitus) type II controlled, neurological manifestation Code(s): E11.49 - TYPE 2 DIABETES W OTH DIABETIC NEUROLOGICAL COMPLICATION Status: Chronic (5) HTN (hypertension) Code(s): I10 - ESSENTIAL (PRIMARY) HYPERTENSION Status: Chronic Qualifiers: Hypertension type: essential hypertension Qualified Code(s): I10 - Essential (primary) hypertension (6) Obesity (BMI 30.0-34.9) Code(s): E66.9 - OBESITY, UNSPECIFIED Status: Chronic (7) Constipation Code(s): K59.00 - CONSTIPATION, UNSPECIFIED Status: Acute Qualifiers: Constipation type: slow transit constipation Qualified Code(s): K59.01 - Slow transit constipation Plan: Improved with BM's - Plan The patient's abdominal pain is likely due to dyspepsia. No evidence of bleeding. Famotidine has been initiated. MiraLAX and Dulcolax for constipation. Continue IV albumin per nephrology. Creatinine level improving. Likely to be discharged home soon.
[2019-12-09] MEDS: Polyethylene Glycol 3350 17 GM Packet PO PRN (18:37)
[2019-12-09] MEDS: Atorvastatin Calcium 40 MG TAB PO SCH (20:51)
[2019-12-09] MEDS ORDERED: Famotidine 20 MG TAB PO SCH (21:00)
[2019-12-10] MEDS: Albumin 25% 25 GM/100 ML BOT IVPB SCH ×2 (00:11→05:09)
[2019-12-10 04:23] LABS: Anion Gap 13 mmol/L (10-20); BUN (Urea Nitrogen) 33 mg/dL (7.0-18.7); Calc. Creatinine Clearance 42 mL/min (70-130); Calcium 7.8 mg/dL (7.8-10.44); Carbon Dioxide 19 mmol/L (22-29); Chloride 106 mmol/L (98-107); Estimated GFR-MDRD 23; Glucose 155 mg/dL (70-105); Potassium 4.1 mmol/L (3.5-5.1); Sodium 134 mmol/L (136-145)
[2019-12-10 04:35] LABS: Eosinophils 2 % (0-10); Hemoglobin 9.4 g/dL (12.0-16.0); Lymphocytes 39 % (21-51); MDiff Complete? YES; Mean Corpuscular Hemoglobin 31.2 pg (27.0-31.0); Mean Corpuscular Volume 91.8 fL (78.0-98.0); Mean Platelet Volume 6.7 fL (7.4-10.4); Monocytes 4 % (0-10); Neutrophil 54 % (42-75); Nucleated RBC 1 % (0); Platelet Count 335 thou/uL (130-400); Platelet Morphology Comment Appears Adequate; RBC Distribution Width 11.1 % (11.5-14.5); RBC Morphology Normal; Red Blood Cell (RBC) Count 3.02 mill/uL (4.20-5.40); White Blood Cell (WBC) Count 8.8 thou/uL (4.8-10.8)
[2019-12-10] MEDS: HumaLOG 300 UNITS/3 ML VIAL SC PRN ×2 (06:13→12:07)
[2019-12-10] MEDS: NIFEdipine XL 30 MG TAB PO SCH (08:14)
[2019-12-10] MEDS: Aspirin 81 mg Enteric Coated Tablet PO SCH (08:14)
[2019-12-10] MEDS: Polyethylene Glycol 3350 17 GM Packet PO PRN (08:14)
[2019-12-10] MEDS: Insulin Glargine 50 UNITS in Pre-Filled Syringe SC SCH (08:14)
[2019-12-10] MEDS: Metoprolol Tartrate 25 MG TAB PO SCH (08:14)
[2019-12-10] MEDS: Senokot S 8.6-50 MG TAB PO PRN (08:15)
--- NOTE | 2019-12-10 11:20 | PRG ---
DATE OF SERVICE: 12/10/2019 SUBJECTIVE: Ms. Shelton is a 44-year-old female who was followed up by the Renal Service for acute kidney injury on top of chronic renal failure. She voices no new complaints today. She has been given albumin infusion in attempt to further improve her renal function. Unfortunately, renal function remains unimproved. It is a possibility that she has a new baseline renal dysfunction. She has underlying diabetic nephropathy. I have also checked an MINE to rule out lupus with this patient. No complaints of chest pain or shortness of breath. Please note that the patient is also being followed up by Cardiology for better BP control. OBJECTIVE: VITAL SIGNS: Blood pressure is 139/63, heart rate 80, respiratory rate 16, temperature 98.2, and pulse ox 99% on room air. GENERAL: The patient is awake, alert, comfortable, not in overt distress, obese. SKIN: Adequate turgor. HEENT: Pinkish conjunctivae, anicteric sclerae. NECK: No neck mass. No carotid bruits. No JVD. CHEST: No deformities. LUNGS: Clear breath sounds. HEART: Normal sinus rhythm. No murmur. No gallops. No rubs. ABDOMEN: Globular, soft, nontender. No masses. EXTREMITIES: No edema, no deformities. MEDICATIONS: Medications of December 10, 2019, reviewed. LABORATORY DATA: December 10, 2019, white count 8.8, hemoglobin 9.8, hematocrit 27.7. Sodium 134, potassium 4.1, chloride 106, carbon dioxide 19, BUN 33, creatinine 2.32, glucose 155, calcium 7.8. ASSESSMENT AND PLAN: 1. Chronic renal failure/acute kidney injury-patient has underlying diabetic nephropathy. The fluctuation in the creatinine may reflect a prerenal azotemia. However, we have tried to optimize hemodynamics without significant improvement of the renal function. This may be a new baseline GFR with this patient. There is no indication for any dialytic intervention at present time with this patient. Continue supportive care. MINE is being rechecked. 2. Labile hypertension, much improved. Continue current BP medications. Job ID: [id number]
[2019-12-10 12:07] VITALS: BP 149/68; TEMP 98.1
[2019-12-10 15:35] LABS: ANA Symphony (Qualitative) Negative (Negative); ANA Symphony (Quantitative) 0.1 Ratio (< 0.7 Negative); dsDNA IgG Antibody Less than 0.5 IU/mL (<10 Negative)
[2019-12-10] MEDS ORDERED: Famotidine 20 MG TAB PO SCH (21:00)
--- NOTE | 2019-12-11 07:40 | DIS ---
DATE OF ADMISSION: 12/06/2019 DATE OF DISCHARGE: 12/10/2019 DISCHARGE DIAGNOSES: 1. Acute kidney injury superimposed on chronic kidney disease. 2. COVID-19 was ruled out. 3. Urinary tract infection. 4. Diabetes mellitus type 2. 5. Hypertension. 6. Obesity. 7. Constipation. DISCHARGE MEDICATIONS: 1. Aspirin 81 mg orally daily. 2. Insulin Levemir 50 units subcu b.i.d. 3. Metoprolol tartrate 25 mg orally twice daily. 4. Insulin aspart 15 units subcu with meals. HISTORY OF PRESENT ILLNESS AND HOSPITAL COURSE: The patient is a 44-year-old female with past medical history of hypertension, chronic kidney disease, and diabetes mellitus, who presented to the hospital with abdominal discomfort. She was also found to be hypertensive with slightly elevated troponin levels. She had a negative stress test at the end of last year. Cardiology Service consulted and the patient's elevated troponin was thought to be due to hypertension and better control was recommended. Nifedipine was added to the patient's antihypertensive regimen, which led to improvement in her blood pressure measurements. The rest of her laboratory studies revealed the presence of UA suggestive of UTI, for which the patient was managed with IV ceftriaxone and her BMP showed elevated creatinine level of 2.38 on admission. The patient's baseline creatinine has been around 1.5 last year. Nephrology Service consulted and the patient was managed with IV hydration, which led to gradual improvement in her creatinine level to 2.13. The cause of her elevated creatinine level was thought to be diabetic nephropathy with prerenal azotemia. No indication for hemodialysis was noted at the time of her hospitalization. Outpatient followup with Nephrology was recommended. Job ID: [id number]
--- NOTE | 2019-12-16 13:00 | EKG ---
Test Reason : Blood Pressure : / mmHG Vent. Rate : 091 BPM Atrial Rate : 091 BPM P-R Int : 146 ms QRS Dur : 082 ms QT Int : 358 ms P-R-T Axes : 060 011 016 degrees QTc Int : 440 ms Normal sinus rhythm Possible Anterior infarct , age undetermined Abnormal ECG Confirmed by AYAAN JASON DO ([id number]), editor at large JOSE GUADALUPE JACK ([id number]) on 12/16/2019 1:00:18 PM Referred By: Confirmed By:AYAAN JASON DO
== END 2019-12-10 14:10 | disposition home or self-care (01) | DRG 683 ==
LOC: ERS 19:38 → OBSVTOIN 21:40 → 2SW 21:40 → 2NO 12-07 19:35
PROVIDERS: ADMIT Internal Medicine; ATTEND Internal Medicine
DX: N17.9 Acute kidney failure, unspecified (principal); N39.0 Urinary tract infection, site not specified; Z20.828 Contact with and (suspected) exposure to other viral communicable diseases; E11.22 Type 2 diabetes mellitus with diabetic chronic kidney disease; E66.9 Obesity, unspecified; R05 Cough; R14.0 Abdominal distension (gaseous); E78.5 Hyperlipidemia, unspecified; F32.9 Major depressive disorder, single episode, unspecified; K59.01 Slow transit constipation; I10 Essential (primary) hypertension; I16.0 Hypertensive urgency; R79.89 Other specified abnormal findings of blood chemistry; N18.9 Chronic kidney disease, unspecified; Z68.35 Body mass index [BMI] 35.0-35.9, adult; Z28.21 Immunization not carried out because of patient refusal; Z88.5 Allergy status to narcotic agent; Z90.49 Acquired absence of other specified parts of digestive tract; Z85.41 Personal history of malignant neoplasm of cervix uteri; Z90.711 Acquired absence of uterus with remaining cervical stump; Z79.899 Other long term (current) drug therapy; Z79.4 Long term (current) use of insulin; Z79.82 Long term (current) use of aspirin
CPT/HCPCS: 36415; 36416; 71045; 74176; 80048; 80053; 80061; 81003; 81015; 82550; 82553; 83605; 83735; 83880; 84443; 84484; 85007; 85025; 85027; 86038; 86225; 87635; 93005; 93970; 94760; J0696; J1815; J2405; J3490; P9047; S0028; U0003

== ENCOUNTER 2020-01-28 14:43 | Emergency (ER) | payer SELFPAY ==
[2020-01-28 16:01] LABS: #Eosinphils 0.2 thou/uL (0.0-0.7); #Lymphocytes 2.4 thou/uL (1.20-3.40); #Monocytes 0.5 thou/uL (0.11-0.59); #Neutrophils 5.8 thou/uL (1.40-6.50); %Basophils 0.5 % (0.0-1.0); %Eosinophils 2.6 % (0.0-10.0); %Lymphocytes 27.2 % (21.0-51.0); %Monocytes 5.1 % (0.0-10.0); %Neutrophils 64.6 % (42.0-75.0); Hemoglobin 11.3 g/dL (12.0-16.0); Mean Corpuscular HGB CONC 35.7 g/dL (32.0-36.0); Mean Corpuscular Hemoglobin 32.3 pg (27.0-31.0); Mean Corpuscular Volume 90.6 fL (78.0-98.0); Mean Platelet Volume 6.7 fL (7.4-10.4); Platelet Count 380 thou/uL (130-400); RBC Distribution Width 11.4 % (11.5-14.5); Red Blood Cell (RBC) Count 3.51 mill/uL (4.20-5.40)
[2020-01-28 16:23] LABS: ALT (SGPT) 11 U/L (8-55); AST (SGOT) 9 U/L (5-34); Albumin 2.9 g/dL (3.5-5.0); Alkaline Phosphatase 85 U/L (40-110); Anion Gap 12 mmol/L (10-20); BUN (Urea Nitrogen) 29 mg/dL (7.0-18.7); Bilirubin, Total 0.4 mg/dL (0.2-1.2); Calc. Creatinine Clearance 0 mL/min (70-130); Calcium 8.5 mg/dL (7.8-10.44); Carbon Dioxide 21 mmol/L (22-29); Chloride 102 mmol/L (98-107); Estimated GFR-MDRD 22; Globulin 3.2 g/dL (2.4-3.5); Glucose 458 mg/dL (70-105); Lipase 56 U/L (8-78); Potassium 3.9 mmol/L (3.5-5.1); Protein, Total 6.1 g/dL (6.0-8.3); Sodium 131 mmol/L (136-145)
[2020-01-28] MEDS ORDERED: Aspirin Chewable 81 MG TAB ONE (16:53)
[2020-01-28] MEDS ORDERED: Insulin Regular 300 UNITS/3 ML VIAL ONE (16:53)
--- NOTE | 2020-01-28 17:30 | RAD ---
EXAM: Single view of the chest HISTORY: Chest pain COMPARISON: 12/06/2019 FINDINGS: Single view of the chest shows a normal sized cardiomediastinal silhouette. There is no crystal dence of consolidation, mass, or pleural effusion. The bones are unremarkable IMPRESSION: No evidence of acute cardiopulmonary disease
[2020-01-28] MEDS ORDERED: Nitroglycerin 2% Ointment 1 INCH/1 GM Packet ONE (18:30)
[2020-01-28 19:27] LABS: Troponin I 0.018 ng/mL (< 0.028)
[2020-01-28] MEDS ORDERED: HYDROcodone/Acetaminophen 5/325 mg Tablet ONE (20:08)
[2020-01-28] MEDS ORDERED: Ondansetron ODT 4 MG TAB ONE (20:08)
== END 2020-01-28 20:15 | disposition home or self-care (01) ==
LOC: ERS 14:43
DX: R07.89 Other chest pain (principal); I10 Essential (primary) hypertension; E11.9 Type 2 diabetes mellitus without complications; F32.9 Major depressive disorder, single episode, unspecified; Z79.899 Other long term (current) drug therapy; Z79.4 Long term (current) use of insulin
CPT/HCPCS: 36415; 36416; 71045; 80053; 83690; 84484; 85025; 93005; 96360; J1815; Q0162

== ENCOUNTER 2020-06-06 18:01 | Emergency (ER) | payer SELFPAY ==
[2020-06-06] MEDS ORDERED: HYDROmorphone 0.5 MG/0.5 ML SYRINGE ONE (18:24)
--- NOTE | 2020-06-06 18:37 | RAD ---
LEFT ANKLE THREE VIEWS: 06/06/20 HISTORY: Ankle injury. FINDINGS: There is a transversely oriented distal medial malleolar fracture and obliquely oriented distal fibul ar shaft fracture. No posterior malleolar fracture is seen. IMPRESSION: Bimalleolar fracture. POS: HIREN
[2020-06-06] MEDS ORDERED: Ondansetron PF 4 MG/2 ML Vial ONE (18:48)
[2020-06-06] MEDS ORDERED: Bacitracin 1 PK ONE (19:03)
[2020-06-06] MEDS ORDERED: Fentanyl 100 MCG/2 ML VIAL ONE (19:39)
== END 2020-06-06 19:37 | disposition home or self-care (01) ==
LOC: ERS 18:01
DX: S82.842A Displaced bimalleolar fracture of left lower leg, initial encounter for closed fracture (principal); I10 Essential (primary) hypertension; E11.9 Type 2 diabetes mellitus without complications; Z79.4 Long term (current) use of insulin; Z79.899 Other long term (current) drug therapy; W22.8XXA Striking against or struck by other objects, initial encounter
CPT/HCPCS: 29515; 96374; 96375; J1170; J2405; J3010

== ENCOUNTER 2020-06-10 10:52 | Emergency (ER) | payer SELFPAY ==
[2020-06-10] MEDS ORDERED: HYDROcodone/Acetaminophen 10/325 mg Tablet ONE (12:58)
[2020-06-10] MEDS ORDERED: Ketorolac Tromethamine 30 MG/ML VIAL ONE (12:59)
[2020-06-10] MEDS ORDERED: Ondansetron ODT 4 MG TAB ONE (12:59)
--- NOTE | 2020-06-10 13:18 | RAD ---
XR Ankle Lt 3 View STANDARD INDICATION: Left ankle injury COMPARISON: Prior exam dated June 06, 2020 FINDINGS: Bones: The bimalleolar ankle fracture is not appreciably changed in position when compared to the redd or. There is been placement of an overlying fiberglass splint. Ankle mortise: Lateral tibiotalar subluxation is again seen Talar Dome: Intact. Subtalar joint: Normal. Visualized hindfoot: Enthesopathic change off the plantar calcaneus is stable Periarticular soft tissues: Normal. IMPRESSION: 1. Stable bimalleolar ankle fracture with lateral tibiotalar subluxation
[2020-06-10] MEDS ORDERED: Bacitracin 1 PK ONE (13:55)
[2020-06-11 01:36] LABS: SARS-CoV-2 MS2 Positive; SARS-CoV-2 N Gene Negative; SARS-CoV-2 S Gene Negative; SARS-CoV-2 by NAA Not Detected (NotDetected); SARS-CoV-2 orf1ab Negative
== END 2020-06-10 16:45 | disposition home or self-care (01) ==
LOC: ERS 10:52
DX: S82.842A Displaced bimalleolar fracture of left lower leg, initial encounter for closed fracture (principal); I10 Essential (primary) hypertension; E11.9 Type 2 diabetes mellitus without complications; Z79.4 Long term (current) use of insulin; Z20.828 Contact with and (suspected) exposure to other viral communicable diseases
CPT/HCPCS: 87635; 96372; J1885; Q0162; U0003

== ENCOUNTER 2020-06-14 07:18 | Inpatient (IN) | payer OTHER, SELFPAY ==
[2020-06-13 10:21] VITALS: BMI 35.9
[2020-06-14] MEDS ORDERED: Fentanyl 100 MCG/2 ML VIAL ONE ×4 (08:50→11:56)
[2020-06-14] MEDS ORDERED: Midazolam HCl 2 mg/2 ml Vial ONE (09:31)
[2020-06-14] MEDS ORDERED: Lidocaine 1% PF 5 ML VIAL ONE (10:15)
[2020-06-14] MEDS ORDERED: Dexamethasone 20 MG/5 ML VIAL ONE (10:15)
[2020-06-14] MEDS ORDERED: Ondansetron PF 4 MG/2 ML Vial ONE (10:15)
[2020-06-14] MEDS ORDERED: Ketorolac Tromethamine 30 MG/ML VIAL ONE (10:15)
[2020-06-14] MEDS ORDERED: PROPOFOL 200 MG/20 ML VIAL ONE (10:15)
[2020-06-14] MEDS ORDERED: Bupivacaine PF 0.5% 30 ML VIAL ONE (10:36)
[2020-06-14] MEDS ORDERED: Lidocaine 1% w/Epinephrine 1:100K 20 ML VIAL ONE (10:36)
--- NOTE | 2020-06-14 11:12 | OP ---
DATE OF PROCEDURE: 06/14/2020 OPERATION: Open reduction and internal fixation of left bimalleolar ankle fracture. PREOPERATIVE DIAGNOSIS: Displaced left bimalleolar ankle fracture. POSTOPERATIVE DIAGNOSIS: Displaced left bimalleolar ankle fracture. COMPLICATIONS: None. ESTIMATED BLOOD LOSS: Minimal. AGENCY DEVELOPMENT MANAGER: None. IMPLANTS: Synthes 1/3 tubular plate with multiple nonlocking screws. INDICATIONS: Ms. Shelton is a 44-year-old female who had fractured her left ankle. She has been indicated for open reduction and internal fixation to restore anatomic alignment and promote healing. Risks have been reviewed in detail. She has elected to proceed with the operation. DESCRIPTION OF PROCEDURE: The patient was identified in the preoperative holding area. Her correct extremity was marked. She was carried to the operating room. She was positioned supine. General anesthesia was induced. A multidisciplinary time-out was performed. The left lower extremity was prepped and draped in sterile fashion. We began the procedure with lateral incision down to the fibula. We dissected down through the subcutaneous tissues and exposed the fibular fracture. There was displacement of the fracture. We cleared the bony edges. We then pulled traction and reduced the fracture back into its anatomic position with a reduction clamp. This was held appropriately. Next, we applied a 6-hole 1/3 tubular plate. Multiple screws were placed proximally and distally, locking the plate to the bone. There were no complications. We took x-rays, confirming this. We then moved to the medial side of the ankle. An incision was made and we dissected down to the medial malleolus. At this point, we cleared the fracture of soft tissue. We exposed the underlying fracture and then reduced the fracture after irrigation. Once we had an anatomic reduction, we applied two 4.0 partially-threaded cancellous screws. These held the fracture well. We took final x-ray images including a stress view x-ray, which were negative. At this point, we thoroughly irrigated all wounds. We then closed in layers. A sterile dressing and splint were placed. Job ID: [id number]
[2020-06-14] MEDS ORDERED: diphenhydrAMINE 50 MG/ML VIAL ONE (11:45)
[2020-06-14] MEDS ORDERED: hydrALAZINE 20 MG/ML VIAL ONE (12:09)
[2020-06-14] MEDS ORDERED: HYDROcodone/Acetaminophen 5/325 mg Tablet ONE (14:44)
[2020-06-14] MEDS ORDERED: Calcium Carbonate 500 MG ChewTAB PO PRN (15:36)
[2020-06-14] MEDS ORDERED: Acetaminophen 325 MG TAB PO PRN (15:36)
[2020-06-14] MEDS ORDERED: Senokot S 8.6-50 MG TAB PO PRN (15:36)
[2020-06-14] MEDS ORDERED: Ondansetron ODT 4 MG TAB PO PRN (15:36)
[2020-06-14] MEDS ORDERED: Bisacodyl 10 MG SUPP PR PRN (15:36)
[2020-06-14] MEDS ORDERED: Bisacodyl 5 MG TAB PO PRN (15:36)
[2020-06-14] MEDS ORDERED: Acetaminophen 650 MG Suppository PR PRN (17:50)
[2020-06-14] MEDS ORDERED: HumaLOG 300 UNITS/3 ML VIAL SC PRN (17:52)
[2020-06-14] MEDS ORDERED: Dextrose 50% Abboject 50 ML SYRINGE SLOW IVP PRN (17:52)
[2020-06-14] MEDS ORDERED: Dextrose 5% in Water 1,000 ML IV PRN (17:52)
--- NOTE | 2020-06-14 18:28 | RAD ---
LEFT ANKLE THREE VIEW: 06/14/20 HISTORY: ORIF. COMPARISON: Radiograph 06/10/20. FINDINGS: Interval placement of two partially threaded medial malleolar screws. Bilateral plate and screw fixat ion distal fibula. IMPRESSION: Satisfactory postoperative appearance. POS: HOME
[2020-06-14] MEDS: HumaLOG 300 UNITS/3 ML VIAL SC PRN (18:38)
--- NOTE | 2020-06-14 18:40 | CON ---
DATE OF CONSULTATION: 06/14/2020 REFERRING PROVIDER: Nirmal Lazar PA-C TIME OF ASSESSMENT: 1700 hours. REASON FOR CONSULTATION: Medical management. CHIEF COMPLAINT: Mild discomfort in the left ankle, status post ankle repair. HISTORY OF PRESENT ILLNESS: Ms. Shelton is a 44-year-old woman, who is status post repair of a left ankle fracture, which she sustained 5 days ago. She had surgery done earlier today and while in recovery stated that she felt generally unwell, therefore has been admitted for observation. Currently, she has no complaints except being hungry and her dinner has been ordered. Denies having any nausea or vomiting. No abdominal pain. No chest pain, palpitations, or shortness of breath. No headaches or dizziness. No urinary symptoms. Stools have been normal in recent days. Denies any recent cough. All other review of systems are negative. PAST MEDICAL HISTORY: 1. Diabetes mellitus. 2. Hypertension. 3. Hyperlipidemia, has not yet started statins prescribed. PAST SURGICAL HISTORY: 1. Hysterectomy. 2. Cholecystectomy. 3. Status post left ankle fracture repair done on 06/14/2020. SOCIAL HISTORY: The patient is fully independent at baseline and lives with her son. Denies any tobacco use, alcohol consumption, or drug use. FAMILY HISTORY: Her father has diabetes. ALLERGIES: NO KNOWN DRUG ALLERGIES. CURRENT MEDICATIONS: 1. Insulin 15 units subcu b.i.d. 2. Levemir 50 units subcu b.i.d. 3. Metoprolol tartrate 50 mg p.o. b.i.d. PHYSICAL EXAMINATION: GENERAL: The patient appears well developed, well nourished, is in no acute distress. VITAL SIGNS: Temperature 98.2, pulse 84, blood pressure 146/67, respirations 20, O2 saturation 99% on room air. HEENT: Normocephalic and atraumatic. Pupils are equal, round, and reactive to light. Sclerae icterus. Oropharynx is clear. NECK: Supple. No lymphadenopathy. LUNGS: Clear to auscultation bilaterally without any wheezes, rales, or rhonchi. CARDIAC: Regular rate and rhythm without audible murmurs, rubs, or gallops. ABDOMEN: Soft, nontender, nondistended. Normoactive bowel sounds present. No guarding or rigidity. No renal angle tenderness. EXTREMITIES: No lower extremity edema. Bandage in place to the left lower extremity, given recent surgery. SKIN: Warm and dry. IMPRESSION AND PLAN: Ms. Shelton is a pleasant 44-year-old woman, [place]-speaking only, who is status post open reduction and internal fixation of the left ankle after recent displaced left bimalleolar ankle fracture sustained 5 days ago. The patient has been referred to us for medical management of the following; 1. Hypertension. We will resume metoprolol. Monitor blood pressure. 2. Diabetes mellitus. We will resume home insulin and also initiate a sliding scale. The patient has been cleared to resume a heart healthy/consistent carb diet. Monitor glucose (ACH). 3. Hyperlipidemia. The patient has statin that has been prescribed recently, but has not started it yet. She does not know the name of this medication. 4. Status post ankle surgery as per Ortho team. 5. Gastrointestinal prophylaxis with famotidine. 6. Deep venous thrombosis prophylaxis with mechanical SCDs. 7. Code status, full. We will obtain routine laboratory studies. Case discussed with Dr. Mejia, who agrees with plan of care as described above. Thank you for this consultation. We will continue to follow this patient with you. Job ID: [id number]
[2020-06-14 18:53] LABS: #Eosinphils 0.1 thou/uL (0.0-0.7); #Lymphocytes 0.8 thou/uL (1.20-3.40); #Monocytes 0.1 thou/uL (0.11-0.59); #Neutrophils 11.2 thou/uL (1.40-6.50); %Basophils 0.2 % (0.0-1.0); %Eosinophils 0.4 % (0.0-10.0); %Lymphocytes 6.4 % (21.0-51.0); %Monocytes 0.7 % (0.0-10.0); %Neutrophils 92.2 % (42.0-75.0); Hemoglobin 9.6 g/dL (12.0-16.0); Mean Corpuscular HGB CONC 33.9 g/dL (32.0-36.0); Mean Corpuscular Hemoglobin 32.2 pg (27.0-31.0); Mean Platelet Volume 6.5 fL (7.4-10.4); Platelet Count 407 thou/uL (130-400); RBC Distribution Width 11.5 % (11.5-14.5); Red Blood Cell (RBC) Count 2.97 mill/uL (4.20-5.40); White Blood Cell (WBC) Count 12.2 thou/uL (4.8-10.8)
[2020-06-14 19:13] LABS: Anion Gap 17 mmol/L (10-20); BUN (Urea Nitrogen) 37 mg/dL (7.0-18.7); Calc. Creatinine Clearance 27 mL/min (70-130); Calcium 7.6 mg/dL (7.8-10.44); Carbon Dioxide 15 mmol/L (22-29); Chloride 104 mmol/L (98-107); Glucose 350 mg/dL (70-105); Sodium 130 mmol/L (136-145)
[2020-06-14] MEDS ORDERED: Non-Formulary Item 1 EACH (Insulin Detemir [Levemir] 100 UNIT/ML Vial) SQ SCH (21:00)
[2020-06-14] MEDS ORDERED: Famotidine/PF 20 mg/2ml Vial SLOW IVP SCH (21:00)
[2020-06-14] MEDS: Metoprolol Tartrate 50 MG TAB PO SCH (22:14)
[2020-06-14] MEDS: Famotidine 20 MG TAB PO SCH (22:14)
[2020-06-14] MEDS: Insulin Glargine 50 UNITS in Pre-Filled Syringe 1 EACH SC SCH (22:15)
[2020-06-14] MEDS ORDERED: Ondansetron PF 4 MG/2 ML Vial IVP PRN (22:52)
[2020-06-14] MEDS: HYDROcodone/Acetaminophen 10/325 mg Tablet PO PRN (22:54)
[2020-06-15] MEDS: HumaLOG 300 UNITS/3 ML VIAL SC PRN (06:23)
[2020-06-15 06:27] LABS: #Lymphocytes 1.3 thou/uL (1.20-3.40); #Monocytes 0.7 thou/uL (0.11-0.59); %Basophils 0.2 % (0.0-1.0); %Eosinophils 0.3 % (0.0-10.0); %Monocytes 5.5 % (0.0-10.0); Hemoglobin 8.2 g/dL (12.0-16.0); Mean Corpuscular HGB CONC 34.6 g/dL (32.0-36.0); Mean Corpuscular Hemoglobin 32.1 pg (27.0-31.0); Mean Corpuscular Volume 92.8 fL (78.0-98.0); Platelet Count 391 thou/uL (130-400); RBC Distribution Width 11.4 % (11.5-14.5); Red Blood Cell (RBC) Count 2.56 mill/uL (4.20-5.40); White Blood Cell (WBC) Count 12.1 thou/uL (4.8-10.8)
[2020-06-15 06:46] LABS: Anion Gap 17 mmol/L (10-20); BUN (Urea Nitrogen) 39 mg/dL (7.0-18.7); Calc. Creatinine Clearance 27 mL/min (70-130); Calcium 7.2 mg/dL (7.8-10.44); Carbon Dioxide 15 mmol/L (22-29); Chloride 104 mmol/L (98-107); Glucose 230 mg/dL (70-105); Potassium 5.7 mmol/L (3.5-5.1); Sodium 130 mmol/L (136-145)
[2020-06-15] MEDS: HumaLOG 300 UNITS/3 ML VIAL SC SCH ×2 (07:37→17:44)
--- NOTE | 2020-06-15 08:20 | PDOC.HOSPP ---
- Subjective Encounter Date: 06/15/20 Encounter Time: 08:18 Subjective: Patient reports feeling significantly better this morning than she did yesterday. She has residual swelling of her eyelids. States her hands are swollen as well. Reports mild discomfort at incision but otherwise no signifi cant pain in her left ankle. Slept well through the night. - Objective Vital Signs & Weight: Vital Signs (12 hours) Temp Pulse Resp BP Pulse Ox 06/15/20 07:45 98.3 F 80 18 147/72 H 06/15/20 06:15 98.8 F 72 16 145/70 H 06/15/20 00:05 98.5 F 83 16 140/73 06/14/20 22:05 99.0 F 87 20 140/65 98 Weight Weight 190 lb Result Diagrams: 06/15/20 06:19 06/15/20 06:19 Additional Labs: Accuchecks 06/15/20 06/14/20 06/14/20 06:16 22:01 17:55 POC Glucose 230 H 411 H 319 H 06/14/20 06/14/20 15:27 09:37 POC Glucose 309 H 100 Hospitalist ROS - Medication Medications: Active Medications Generic Name Dose Route Start Last Admin Trade Name Freq PRN Reason Stop Dose Admin Hydrocodone Bitart/Acetaminophen 1 tab 06/14/20 22:51 06/14/20 22:54 Hydrocodone/Acetaminophen 10/325 Mg Tablet PO 1 tab Q4H PRN Administration Moderate to Severe Pain (4-10) Famotidine 20 mg 06/14/20 21:00 06/14/20 22:14 Famotidine 20 Mg Tab PO 20 mg BID ROBBY Administration Insulin Glargine 50 units/ 0.5 mls @ 0 mls/hr 06/14/20 21:00 06/14/20 22:15 Miscellaneous Medication SC 0.5 mls HS ROBBY Administration Insulin Human Lispro 0 units 06/14/20 17:52 06/15/20 06:23 Humalog 300 Units/3 Ml Vial SC 3 unit .MILD SLIDING SCALE PRN Administration Mild Correctional Scale Insulin Human Lispro 0 units 06/14/20 17:52 06/14/20 22:18 Humalog 300 Units/3 Ml Vial SC 5 unit .BEDTIME SLIDING SC PRN Administration Bedtime Correctional Scale Insulin Human Lispro 15 units 06/15/20 08:00 06/15/20 07:37 Humalog 300 Units/3 Ml Vial SC 15 unit 0800,1700 ROBBY Administration Metoprolol Tartrate 50 mg 06/14/20 21:00 06/14/20 22:14 Metoprolol Tartrate 50 Mg Tab PO 50 mg BID ROBBY Administration - Exam General Appearance: NAD, awake alert Eye: PERRL, anicteric sclera Eye - other findings: swelling of her eyelids R>L ENT: normocephalic atraumatic, no oropharyngeal lesions Neck: supple, symmetric, no lymphadenopathy Heart: RRR, no murmur, no gallops, normal peripheral pulses Respiratory: CTAB, no wheezes, no rales, no ronchi, normal chest expansion Gastrointestinal: soft (obese), non-tender, non-distended, normal bowel sounds, no guarding, no rigidity Skin: normal turgor, no lesions, no rashes Neurological: cranial nerve grossly intact, normal sensation to touch, no focal deficits Musculoskeletal: normal tone, normal strength, no muscle wasting Psychiatric: normal affect, normal behavior, A&O x 3 Hosp A/P (1) [id number]-qikfblo kidney injury Code(s): N17.9 - ACUTE KIDNEY FAILURE, UNSPECIFIED; N18.9 - CHRONIC KIDNEY DISEASE, UNSPECIFIED Status: Acute Plan: Patient with GFR of 14 and creat of 3.36, worse from baseline and K+ elevated Consult placed to Nephrology (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) Monitor renal function avoid nephrotoxic meds D/C IVF given concern for fluid retention and tolerating PO intake (2) Diabetes mellitus Code(s): E11.9 - TYPE 2 DIABETES MELLITUS WITHOUT COMPLICATIONS Status: Chronic Plan: Home insulin restarted Continue ISS Monitor glucose (accu-chek ACHS) (3) HTN (hypertension) Code(s): I10 - ESSENTIAL (PRIMARY) HYPERTENSION Status: Chronic Qualifiers: Hypertension type: essential hypertension Qualified Code(s): I10 - Essential (primary) hypertension Plan: Metoprolol restarted Monitor BP (4) HLD (hyperlipidemia) Code(s): E78.5 - HYPERLIPIDEMIA, UNSPECIFIED Status: Chronic (5) Obesity (BMI 30.0-34.9) Code(s): E66.9 - OBESITY, UNSPECIFIED Status: Chronic - Plan DVT proph w/SCDs
[2020-06-15] MEDS: Famotidine 20 MG TAB PO SCH (09:15)
[2020-06-15] MEDS: Metoprolol Tartrate 50 MG TAB PO SCH ×2 (09:15→22:05)
[2020-06-15] MEDS: Insulin Glargine 50 UNITS in Pre-Filled Syringe 1 EACH SC SCH ×2 (09:16→22:08)
[2020-06-15] MEDS: HYDROcodone/Acetaminophen 10/325 mg Tablet PO PRN ×2 (09:20→19:25)
[2020-06-15] MEDS: Ondansetron PF 4 MG/2 ML Vial IVP PRN (11:57)
[2020-06-15] MEDS: Sodium Chloride 0.9% 1,000 ML IV SCH ×2 (11:58→22:04)
--- NOTE | 2020-06-15 12:02 | CON ---
DATE OF CONSULTATION: 06/15/2020 HISTORY OF PRESENT ILLNESS: Ms. Shelton is a 44-year-old female who was admitted for a left ankle fracture, underwent left ankle open reduction and internal fixation and we are being consulted for acute kidney injury on top of her chronic renal failure. She also was noted to be mildly hyperkalemic. REVIEW OF SYSTEMS: Positive for left ankle pain. No chest pain. No shortness of breath. No nausea. No vomiting. No fever or chills. No productive cough. No syncopal episode. No dysuria. No urinary frequency. No abdominal pain. Appetite and energy level are fair. Currently, no other joint pains. No new skin rash. MEDICATIONS: The patient is currently on the following medications: 1. Acetaminophen 650 mg p.o. q.4h p.r.n. 2. Calcium carbonate q.4h p.r.n. 3. Famotidine 20 mg p.o. b.i.d. 4. Insulin detemir 50 units subcu b.i.d. 5. Metoprolol 50 mg p.o. b.i.d. 6. Zofran p.r.n. Home medications showed: 1. Levemir 15 units subcu b.i.d. 2. NovoLog 15 units subcu b.i.d. 3. Metoprolol tartrate 50 mg p.o. b.i.d. PAST MEDICAL HISTORY: 1. Chronic renal failure from diabetic nephropathy. 2. Type 2 diabetes mellitus. 3. Long-standing hypertension, status post depression. PAST SURGICAL HISTORY: Recently, status post left ankle open reduction and internal fixation, status post partial hysterectomy, history of abnormal Pap smear, status post cholecystectomy, status post urinary tract infection. SOCIAL HISTORY: The patient lives in [place]. She is single. Four children. Currently, not working. No alcohol. No drug abuse. Education: Primary grade. ALLERGIES: ?MORPHINE. TRAUMA: None. IMMUNIZATIONS: Up to date. HOSPITALIZATIONS: Please see past medical history. FAMILY HISTORY: No family history of end-stage renal disease. PHYSICAL EXAMINATION: VITAL SIGNS: Blood pressure is 147/72, heart rate 80, respiratory rate 18, temperature 98.3. GENERAL: She is awake, alert, comfortable, not in distress, obese. SKIN: Adequate turgor. HEENT: She has pale conjunctivae. Anicteric sclerae. NECK: No neck mass. No carotid bruits. No JVD. CHEST: No deformities. LUNGS: Clear breath sounds. No wheezing. No crackles. HEART: Normal sinus rhythm. No murmur. No gallops. No rubs. ABDOMEN: Globular. Soft, nontender. No masses. EXTREMITIES: No edema. No deformities. Left ankle surgical dressing noted. LABORATORY DATA: June 15, 2020; white count 12.1, hemoglobin 8.2. Sodium 130, potassium 5.7, chloride 104, carbon dioxide 15, BUN 39, creatinine 3.66, glucose 230, calcium 7.2. Further review of her serum creatinine shows the following, June 14, 2020, creatinine 3.59. January 28, 2020, creatinine 2.42. May 03, 2019, creatinine 1.55. September 28, 2017, creatinine 0.85. ASSESSMENT AND PLAN: 1. Acute kidney injury on top of her chronic renal failure - consider the possibility of hemodynamically-mediated renal dysfunction. We will start normal saline 125 mL/hour. No indication for any dialytic intervention. 2. Chronic renal failure, most likely from diabetic nephropathy. We will review another urinalysis with this patient. Please note that this patient had a CT scan of the abdomen and pelvis back early this year and the kidneys were noted to be within normal with no hydronephrosis or masses. I feel the renal ultrasound is not indicated. 3. Status post left ankle fracture - the patient is status post open reduction and internal fixation - Surgery is following. 4. Mild hyperkalemia. Placed on a low-potassium diet. We will recheck CBC, basic metabolic in a.m. Review urinalysis. Thank you for the consult. We will continue to follow. Job ID: [id number]
[2020-06-15 12:28] LABS: Bacteria/HPF 1+ HPF (None Seen); Bilirubin Negative (Negative); Blood, Urine Trace (Negative); Clarity Clear (Clear); Glucose, Urine (Dipstick) Greater than 1000 mg/dL (Negative); Ketone, Urine Negative (Negative); Leukocyte Negative Leu/uL (Negative); Nitrite Negative (Negative); Protein, Urine (Dipstick) 600 mg/dL (Neg-Trace); RBC/HPF 0-3 HPF (0-3); Specific Gravity, Urine 1.015 (1.002-1.036); Urobilinogen Normal mg/dL (Less than 2)
[2020-06-15] MEDS: Sodium Bicarbonate Tab 325 MG TAB PO SCH ×2 (15:13→22:10)
[2020-06-16] MEDS: Sodium Chloride 0.9% 1,000 ML IV SCH ×3 (05:44→19:40)
[2020-06-16] MEDS: HYDROcodone/Acetaminophen 10/325 mg Tablet PO PRN ×3 (05:46→19:38)
[2020-06-16 06:01] LABS: Anion Gap 15 mmol/L (10-20); BUN (Urea Nitrogen) 46 mg/dL (7.0-18.7); Calc. Creatinine Clearance 29 mL/min (70-130); Calcium 6.7 mg/dL (7.8-10.44); Carbon Dioxide 16 mmol/L (22-29); Chloride 108 mmol/L (98-107); Glucose 66 mg/dL (70-105); Potassium 4.8 mmol/L (3.5-5.1); Sodium 134 mmol/L (136-145)
[2020-06-16] MEDS: HumaLOG 300 UNITS/3 ML VIAL SC SCH ×2 (06:48→18:18)
[2020-06-16] MEDS: Insulin Glargine 50 UNITS in Pre-Filled Syringe 1 EACH SC SCH (06:48)
[2020-06-16 07:09] LABS: #Basophils 0.1 thou/uL (0.0-0.2); #Eosinphils 0.3 thou/uL (0.0-0.7); #Lymphocytes 3.2 thou/uL (1.20-3.40); #Monocytes 0.7 thou/uL (0.11-0.59); #Neutrophils 6.8 thou/uL (1.40-6.50); %Basophils 0.6 % (0.0-1.0); %Monocytes 6.4 % (0.0-10.0); Hemoglobin 8.1 g/dL (12.0-16.0); Mean Corpuscular HGB CONC 34.1 g/dL (32.0-36.0); Mean Corpuscular Hemoglobin 31.9 pg (27.0-31.0); Mean Corpuscular Volume 93.5 fL (78.0-98.0); Mean Platelet Volume 6.2 fL (7.4-10.4); Platelet Count 400 thou/uL (130-400); RBC Distribution Width 11.4 % (11.5-14.5); Red Blood Cell (RBC) Count 2.52 mill/uL (4.20-5.40); White Blood Cell (WBC) Count 11.1 thou/uL (4.8-10.8)
[2020-06-16] MEDS: Famotidine 20 MG TAB PO SCH (07:56)
[2020-06-16] MEDS: Sodium Bicarbonate Tab 325 MG TAB PO SCH ×3 (07:56→21:05)
[2020-06-16] MEDS: Metoprolol Tartrate 50 MG TAB PO SCH ×2 (07:56→18:48)
--- NOTE | 2020-06-16 10:42 | PRG ---
DATE OF SERVICE: 06/16/2020 SUBJECTIVE: Ms. Shelton is a 44-year-old female, who was admitted for left ankle fracture and underwent left ankle ORIF. During this hospitalization, she was noted to have an acute kidney injury on top of her chronic renal failure. We felt that she had a hemodynamically-mediated renal dysfunction. Empiric volume repletion has been given with slight improvement of creatinine. This morning, she voices no new complaints. She denies any chest pain, shortness of breath, nausea, or vomiting. OBJECTIVE: VITAL SIGNS: Blood pressure is 137/63, heart rate 86, respiratory rate 18, temperature 98.3, and O2 saturation 96%. GENERAL: The patient is awake, alert, supine, comfortable, obese, not in distress. SKIN: Adequate turgor. HEENT: She has pinkish conjunctivae. Anicteric sclerae. NECK: No neck mass. No carotid bruits. No JVD. CHEST: No deformities. LUNGS: Clear breath sounds. HEART: Normal sinus rhythm. No murmur. No gallops. No rubs. ABDOMEN: Globular, soft, and nontender. No masses. EXTREMITIES: No edema. No deformities. She has a left ankle surgical dressing. MEDICATIONS: Of June 16, 2020, reviewed. LABORATORY DATA: Laboratories of June 16, 2020; white count 11.1, hemoglobin 8.1. Sodium 134, potassium 4.8, chloride 108, carbon dioxide 16, BUN 46, creatinine 3.35, glucose 66, and calcium is noted at 6.7. ASSESSMENT AND PLAN: 1. Mild hypocalcemia. Start Tums 500 mg one tab t.i.d. with meals. 2. Chronic renal failure/acute kidney injury, superimposed prerenal azotemia. This is on top of underlying diabetic nephropathy. Continue IV fluid normal saline 125 mL/hour. Avoid all NSAIDs. 3. Anemia. Start ferrous sulfate 325 mg tab p.o. b.i.d. 4. Metabolic acidosis - sodium bicarbonate has been started. 5. Status post left ankle fracture - status post left ankle open reduction and internal fixation. We will be rechecking CBC, basic metabolic panel, PTH, and serum phosphorus in a.m. Job ID: [id number]
[2020-06-16] MEDS ORDERED: HumaLOG 300 UNITS/3 ML VIAL SC PRN (12:02)
[2020-06-16] MEDS: Ferrous Sulfate 325 MG TAB PO SCH (16:32)
[2020-06-16] MEDS: Ondansetron PF 4 MG/2 ML Vial IVP PRN (16:32)
[2020-06-16] MEDS: hydrALAZINE 20 MG/ML VIAL SLOW IVP PRN (18:48)
--- NOTE | 2020-06-16 19:34 | PDOC.HOSPP ---
- Subjective Encounter Date: 06/16/20 Encounter Time: 11:30 Subjective: Patient seen and examined for medical management. Denies any new complaints. Pain controlled. No nausea or vomiting. Constipated. - Objective Vital Signs & Weight: Vital Signs (12 hours) Temp Pulse Resp BP BP Pulse Ox 06/16/20 18:48 79 185/84 H 06/16/20 16:28 98.0 F 75 18 185/83 H 99 06/16/20 12:15 98.1 F 75 18 177/80 H 99 06/16/20 07:57 98.3 F 86 18 137/63 96 Weight Weight 190 lb I&O: 06/15/20 06/16/20 06/17/20 06:59 06:59 06:59 Intake Total 1375 Output Total 1100 Balance 275 Result Diagrams: 06/16/20 07:03 06/16/20 05:39 Additional Labs: Accuchecks 06/16/20 06/16/20 06/16/20 16:28 11:21 06:18 POC Glucose 98 113 H 71 06/16/20 06/15/20 05:41 22:06 POC Glucose 68 L 85 Abnormal Lab Results - Last 48 hrs 06/15/20 06:19: Sodium 130 L, Potassium 5.7 H, Carbon Dioxide 15 L, BUN 39 H, Creatinine 3.66 H, Calcium 7.2 L 06/15/20 06:19: WBC 12.1 H, RBC 2.56 L, Hgb 8.2 L, Hct 23.8 L, MCH 32.1 H, RDW 11.4 L, MPV 7.0 L, Neutrophils % 83.0 H, Lymphocytes % 11.0 L, Neutrophils # 10.0 H, Monocytes # 0.7 H 06/15/20 11:55: Urine Protein 600 A, Urine Glucose (UA) Greater than 1000 A, Urine Blood Trace A, Urine WBC 11-20 A, Ur Squamous Epith Cells 7-10 A, Urine Bacteria 1+ A 06/16/20 05:39: Sodium 134 L, Chloride 108 H, Carbon Dioxide 16 L, BUN 46 H, Creatinine 3.35 H, Calcium 6.7 L 06/16/20 07:03: WBC 11.1 H, RBC 2.52 L, Hgb 8.1 L, Hct 23.6 L, MCH 31.9 H, RDW 11.4 L, MPV 6.2 L, Neutrophils # 6.8 H, Monocytes # 0.7 H Radiology Reviewed by me: Yes (Ankle x-ray reviewed) Hospitalist ROS - Review of Systems Cardiovascular: denies: chest pain, palpitations, orthopnea, paroxysmal noc. dyspnea, edema, light headedness, other Gastrointestinal: denies: nausea, vomiting, abdominal pain, diarrhea, constipation, melena, hematochezia, other - Medication Medications: Active Medications Generic Name Dose Route Start Last Admin Trade Name Freq PRN Reason Stop Dose Admin Hydrocodone Bitart/Acetaminophen 1 tab 06/14/20 22:51 06/16/20 12:17 Hydrocodone/Acetaminophen 10/325 Mg Tablet PO 1 tab Q4H PRN Administration Moderate to Severe Pain (4-10) Famotidine 20 mg 06/16/20 09:00 06/16/20 07:56 Famotidine 20 Mg Tab PO 20 mg DAILY ROBBY Administration Ferrous Sulfate 325 mg 06/16/20 17:00 06/16/20 16:32 Ferrous Sulfate 325 Mg Tab PO 325 mg BID-WM ROBBY Administration Hydralazine HCl 10 mg 06/16/20 18:17 06/16/20 18:48 Hydralazine 20 Mg/Ml Vial SLOW IVP 10 mg Q4H PRN Administration SBP GREATER THAN 160 Sodium Chloride 1,000 mls @ 125 mls/hr 06/15/20 11:45 06/16/20 13:55 Normal Saline 0.9% IV 1,000 mls .Q8H ROBBY Administration Insulin Human Lispro 0 units 06/14/20 17:52 06/14/20 22:18 Humalog 300 Units/3 Ml Vial SC 5 unit .BEDTIME SLIDING SC PRN Administration Bedtime Correctional Scale Metoprolol Tartrate 50 mg 06/14/20 21:00 06/16/20 18:48 Metoprolol Tartrate 50 Mg Tab PO 50 mg BID ROBBY Administration Ondansetron HCl 4 mg 06/14/20 15:36 06/16/20 16:32 Ondansetron Pf 4 Mg/2 Ml Vial IVP 4 mg Q6H PRN Administration Nausea/Vomiting Sodium Bicarbonate 650 mg 06/15/20 15:00 06/16/20 16:29 Sodium Bicarbonate Tab 325 Mg Tab PO 650 mg TID ROBBY Administration - Exam General Appearance: NAD Heart: RRR, no gallops Respiratory: no wheezes, no ronchi Gastrointestinal: non-tender, normal bowel sounds Extremities: no cyanosis Neurological: no new deficit Hosp A/P - Plan DVT proph w/SCDs Diabetes mellitus type 2 Hypertension Hyperlipidemia Obesity with a BMI 35.9 Hyponatremia Metabolic acidosis due to renal insufficiency TWAN on CKD stage IV Plan: Reduce Lantus to 30 units twice daily. Change sliding scale to moderate. Discontinue home dose of Humalog due to hypoglycemia. Continue physical therapy. IV fluids per nephrology. Add hydralazine due to uncontrolled blood pressure. Treat constipation. Continue other medications as above.
[2020-06-16] MEDS ORDERED: Polyethylene Glycol 3350 17 GM Packet PO SCH (21:00)
[2020-06-16] MEDS ORDERED: Senokot S 8.6-50 MG TAB PO SCH (21:00)
[2020-06-16] MEDS ORDERED: Insulin Glargine 30 UNITS in Pre-Filled Syringe 1 EACH SC SCH (21:00)
[2020-06-16] MEDS: hydrALAZINE 25 MG TAB PO SCH (21:04)
[2020-06-16] MEDS: Calcium Carbonate 500 MG ChewTAB PO SCH (21:04)
[2020-06-16] MEDS: Senokot S 8.6-50 MG TAB PO SCH (21:05)
[2020-06-16] MEDS: Polyethylene Glycol 3350 17 GM Packet PO SCH (21:06)
[2020-06-17] MEDS: hydrALAZINE 20 MG/ML VIAL SLOW IVP PRN ×3 (05:13→18:45)
[2020-06-17] MEDS: Sodium Chloride 0.9% 1,000 ML IV SCH ×2 (05:17→17:25)
[2020-06-17] MEDS: HYDROcodone/Acetaminophen 10/325 mg Tablet PO PRN (06:05)
[2020-06-17 06:37] LABS: #Basophils 0.1 thou/uL (0.0-0.2); #Eosinphils 0.3 thou/uL (0.0-0.7); #Lymphocytes 1.8 thou/uL (1.20-3.40); #Monocytes 0.7 thou/uL (0.11-0.59); #Neutrophils 8.3 thou/uL (1.40-6.50); %Basophils 0.6 % (0.0-1.0); %Eosinophils 2.6 % (0.0-10.0); %Lymphocytes 16.4 % (21.0-51.0); %Monocytes 6.2 % (0.0-10.0); %Neutrophils 74.2 % (42.0-75.0); Hemoglobin 8.5 g/dL (12.0-16.0); Mean Corpuscular HGB CONC 33.6 g/dL (32.0-36.0); Mean Corpuscular Hemoglobin 31.4 pg (27.0-31.0); Mean Corpuscular Volume 93.6 fL (78.0-98.0); Mean Platelet Volume 6.4 fL (7.4-10.4); Platelet Count 400 thou/uL (130-400); RBC Distribution Width 11.4 % (11.5-14.5); Red Blood Cell (RBC) Count 2.71 mill/uL (4.20-5.40); White Blood Cell (WBC) Count 11.2 thou/uL (4.8-10.8)
[2020-06-17 06:56] LABS: Anion Gap 16 mmol/L (10-20); BUN (Urea Nitrogen) 39 mg/dL (7.0-18.7); Calc. Creatinine Clearance 32 mL/min (70-130); Calcium 6.6 mg/dL (7.8-10.44); Carbon Dioxide 13 mmol/L (22-29); Chloride 111 mmol/L (98-107); Glucose 114 mg/dL (70-105); Potassium 4.8 mmol/L (3.5-5.1); Sodium 135 mmol/L (136-145)
[2020-06-17 07:00] LABS: Phosphorus 3.9 mg/dL (2.3-4.7)
[2020-06-17] MEDS ORDERED: Insulin Glargine 30 UNITS in Pre-Filled Syringe 1 EACH SC SCH (09:00)
[2020-06-17] MEDS ORDERED: Cyanocobalamin (Vitamin B-12) 1,000 MCG TAB PO SCH (09:00)
--- NOTE | 2020-06-17 09:43 | PRG ---
DATE OF SERVICE: 06/17/2020 SUBJECTIVE: Ms. Shelton is a 44-year-old female admitted for left ankle fracture, status post left ankle ORIF and we are following her up for her acute kidney injury on top of her chronic renal failure. She has superimposed prerenal azotemia and has been started on IV fluids. Renal function is slowly improving. No complaints of chest pain or shortness of breath. OBJECTIVE: VITAL SIGNS: Blood pressure 171/78, heart rate 87, respiratory rate is 16, temperature 98.2. GENERAL: Patient is awake, alert, comfortable, not in overt distress. SKIN: Adequate turgor. HEENT: She has a slightly pale conjunctivae. Anicteric sclerae. NECK: No neck mass. No carotid bruits. No JVD. CHEST: No deformities. LUNGS: Clear breath sounds. No wheezing. No crackles. HEART: Normal sinus rhythm. No murmur. No gallops. No rubs. ABDOMEN: Globular, soft, nontender. No masses. EXTREMITIES: No edema. No deformities. MEDICATIONS: June 17, 2020, was reviewed. LABORATORY DATA: Laboratories of June 17, 2020; white count 11.2, hemoglobin 8.5. Sodium 135, potassium 4.8, chloride 111, carbon dioxide 13, BUN is 39, creatinine 3.11, calcium 6.6, phosphorus 3.9, PTH is 474. ASSESSMENT AND PLAN: 1. Secondary hyperparathyroidism--elevated PTH was noted and the patient has a low serum calcium. We will start calcitriol 0.25 mcg tablet daily. 2. Acute kidney injury on top of her chronic renal failure, superimposed prerenal azotemia slowly improving creatinine. Continue normal saline at 125 mL/hour. I feel that she needs another day of IV hydration. 3. Status post left ankle open reduction internal fixation, stable. Surgery is following. 4. We will recheck CBC and basic metabolics in a.m. Job ID: [id number]
[2020-06-17] MEDS: Senokot S 8.6-50 MG TAB PO SCH ×2 (09:55→21:25)
[2020-06-17] MEDS: Calcitriol 0.25 MCG CAP PO SCH (09:55)
[2020-06-17] MEDS: Calcium Carbonate 500 MG ChewTAB PO SCH ×2 (09:55→21:26)
[2020-06-17] MEDS: Famotidine 20 MG TAB PO SCH (09:56)
[2020-06-17] MEDS: Metoprolol Tartrate 50 MG TAB PO SCH ×2 (09:56→18:44)
[2020-06-17] MEDS: Ferrous Sulfate 325 MG TAB PO SCH ×2 (09:56→17:24)
[2020-06-17] MEDS: hydrALAZINE 25 MG TAB PO SCH ×3 (09:56→18:44)
[2020-06-17] MEDS: Folic Acid 1 MG TAB PO SCH (09:56)
[2020-06-17] MEDS: Sodium Bicarbonate Tab 325 MG TAB PO SCH ×3 (10:11→21:25)
[2020-06-17] MEDS ORDERED: HumaLOG 300 UNITS/3 ML VIAL SC PRN (10:22)
[2020-06-17] MEDS ORDERED: ALPRAZolam 0.25 MG TAB PO PRN (17:20)
[2020-06-17] MEDS ORDERED: cloNIDine 0.1 MG TAB PO PRN (18:01)
[2020-06-17] MEDS: Polyethylene Glycol 3350 17 GM Packet PO SCH (21:26)
--- NOTE | 2020-06-17 23:28 | PDOC.HOSPP ---
- Subjective Encounter Date: 06/17/20 Encounter Time: 15:00 Subjective: Patient seen and examined for medical management. Feels anxious. Poor appetite. Has some nausea earlier. - Objective Vital Signs & Weight: Vital Signs (12 hours) Temp Pulse Resp BP Pulse Ox 06/17/20 21:25 139/61 06/17/20 20:00 98.9 F 80 16 149/70 H 97 06/17/20 19:05 78 18 166/72 H 06/17/20 18:50 74 20 195/92 H 06/17/20 18:45 97 06/17/20 18:44 97 06/17/20 17:40 78 20 207/88 H 98 06/17/20 17:22 97 06/17/20 17:02 98.5 F 97 12 97 06/17/20 12:20 98.1 F 91 18 156/81 H 98 Weight Weight 190 lb I&O: 06/16/20 06/17/20 06/18/20 06:59 06:59 06:59 Intake Total 1375 1400 Output Total 1100 1630 Balance 275 -230 Result Diagrams: 06/18/20 06:03 06/18/20 06:03 Additional Labs: Accuchecks 06/17/20 06/17/20 06/17/20 21:41 17:04 11:56 POC Glucose 135 H 90 81 06/17/20 06/17/20 05:57 05:05 POC Glucose 91 67 L Hospitalist ROS - Review of Systems Respiratory: denies: cough, dry, shortness of breath, hemoptysis, SOB with excertion, pleuritic pain, sputum, wheezing, other Cardiovascular: denies: chest pain, palpitations, orthopnea, paroxysmal noc. dyspnea, edema, light headedness, other Gastrointestinal: reports: nausea. denies: vomiting, abdominal pain, diarrhea, constipation, melena, hematochezia, other - Medication Medications: Active Medications Generic Name Dose Route Start Last Admin Trade Name Freq PRN Reason Stop Dose Admin Hydrocodone Bitart/Acetaminophen 1 tab 06/14/20 22:51 06/17/20 06:05 Hydrocodone/Acetaminophen 10/325 Mg Tablet PO 1 tab Q4H PRN Administration Moderate to Severe Pain (4-10) Alprazolam 0.25 mg 06/17/20 17:20 06/17/20 18:44 Alprazolam 0.25 Mg Tab PO 0.25 mg BIDPRN PRN Administration Anxiety Calcitriol 0.25 mcg 06/17/20 09:00 06/17/20 09:55 Calcitriol 0.25 Mcg Cap PO 0.25 mcg DAILY ROBBY Administration Calcium Carbonate 1,000 mg 06/16/20 21:00 06/17/20 21:26 Calcium Carbonate 500 Mg Chewtab PO 1,000 mg BID ROBBY Administration Clonidine 0.1 mg 06/17/20 18:01 06/17/20 18:45 Clonidine 0.1 Mg Tab PO 0.1 mg Q4H PRN Administration SBP Greater Than 180 Cyanocobalamin 1,000 mcg 06/17/20 09:00 06/17/20 09:55 Cyanocobalamin (Vitamin B-12) 1,000 Mcg Tab PO 1,000 mcg DAILY ROBBY Administration Famotidine 20 mg 06/16/20 09:00 06/17/20 09:56 Famotidine 20 Mg Tab PO 20 mg DAILY ROBBY Administration Ferrous Sulfate 325 mg 06/16/20 17:00 06/17/20 17:24 Ferrous Sulfate 325 Mg Tab PO Not Given BID-WM ROBBY Folic Acid 1 mg 06/17/20 09:00 06/17/20 09:56 Folic Acid 1 Mg Tab PO 1 mg DAILY ROBBY Administration Hydralazine HCl 10 mg 06/16/20 18:17 06/17/20 18:45 Hydralazine 20 Mg/Ml Vial SLOW IVP 10 mg Q4H PRN Administration SBP GREATER THAN 160 Hydralazine HCl 25 mg 06/16/20 21:00 06/17/20 18:44 Hydralazine 25 Mg Tab PO 25 mg TID ROBBY Administration Sodium Chloride 1,000 mls @ 125 mls/hr 06/15/20 11:45 06/17/20 17:25 Normal Saline 0.9% IV Not Given .Q8H ROBBY Insulin Glargine 30 units/ 0.3 mls @ 0 mls/hr 06/17/20 09:00 06/17/20 09:56 Miscellaneous Medication SC 0.3 mls QAM ROBBY Administration Insulin Human Lispro 0 units 06/14/20 17:52 06/14/20 22:18 Humalog 300 Units/3 Ml Vial SC 5 unit .BEDTIME SLIDING SC PRN Administration Bedtime Correctional Scale Metoprolol Tartrate 50 mg 06/14/20 21:00 06/17/20 18:44 Metoprolol Tartrate 50 Mg Tab PO 50 mg BID ROBBY Administration Ondansetron HCl 4 mg 06/14/20 15:36 06/16/20 16:32 Ondansetron Pf 4 Mg/2 Ml Vial IVP 4 mg Q6H PRN Administration Nausea/Vomiting Polyethylene Glycol 17 gm 06/16/20 21:00 06/17/20 21:26 Polyethylene Glycol 3350 17 Gm Packet PO 17 gm HS ROBBY Administration Senna/Docusate Sodium 1 tab 06/16/20 21:00 06/17/20 21:25 Senokot S 8.6-50 Mg Tab PO 1 tab BID ROBBY Administration Sodium Bicarbonate 650 mg 06/15/20 15:00 06/17/20 21:25 Sodium Bicarbonate Tab 325 Mg Tab PO 650 mg TID ROBBY Administration - Exam General Appearance: NAD Heart: RRR, no gallops Respiratory: no wheezes, no rales Gastrointestinal: non-tender, non-distended Extremities: no cyanosis Neurological: no new deficit Hosp A/P - Plan DVT proph w/SCDs Diabetes mellitus type 2 Hypertension Hyperlipidemia Obesity with a BMI 35.9 Hyponatremia Metabolic acidosis due to renal insufficiency TWAN on CKD stage IV Plan: Reduce Lantus to 30 units daily. IV fluids per nephrology. Continue MiraLAX with Senokot-S. Continue sodium bicarbonate for metabolic acidosis. Continue current dose of hydralazine. Continue metoprolol. We will continue to follow
[2020-06-18] MEDS: Sodium Chloride 0.9% 1,000 ML IV SCH ×2 (01:39→08:18)
[2020-06-18 06:13] LABS: #Basophils 0.1 thou/uL (0.0-0.2); #Eosinphils 0.2 thou/uL (0.0-0.7); #Lymphocytes 1.5 thou/uL (1.20-3.40); #Monocytes 0.5 thou/uL (0.11-0.59); #Neutrophils 6.4 thou/uL (1.40-6.50); %Basophils 0.6 % (0.0-1.0); %Eosinophils 1.7 % (0.0-10.0); %Lymphocytes 17.7 % (21.0-51.0); %Monocytes 6.1 % (0.0-10.0); %Neutrophils 73.8 % (42.0-75.0); Mean Corpuscular HGB CONC 34.4 g/dL (32.0-36.0); Mean Corpuscular Hemoglobin 32.8 pg (27.0-31.0); Mean Corpuscular Volume 95.4 fL (78.0-98.0); Mean Platelet Volume 6.1 fL (7.4-10.4); Platelet Count 398 thou/uL (130-400); RBC Distribution Width 11.3 % (11.5-14.5); Red Blood Cell (RBC) Count 2.45 mill/uL (4.20-5.40); White Blood Cell (WBC) Count 8.7 thou/uL (4.8-10.8)
[2020-06-18 06:41] LABS: Anion Gap 13 mmol/L (10-20); BUN (Urea Nitrogen) 34 mg/dL (7.0-18.7); Calc. Creatinine Clearance 33 mL/min (70-130); Calcium 7.1 mg/dL (7.8-10.44); Carbon Dioxide 18 mmol/L (22-29); Chloride 111 mmol/L (98-107); Glucose 60 mg/dL (70-105); Potassium 4.3 mmol/L (3.5-5.1); Sodium 138 mmol/L (136-145)
[2020-06-18] MEDS: Ferrous Sulfate 325 MG TAB PO SCH (08:16)
[2020-06-18] MEDS: Calcium Carbonate 500 MG ChewTAB PO SCH (08:16)
[2020-06-18] MEDS: Famotidine 20 MG TAB PO SCH (08:17)
[2020-06-18] MEDS: Sodium Bicarbonate Tab 325 MG TAB PO SCH (08:17)
[2020-06-18] MEDS: Calcitriol 0.25 MCG CAP PO SCH (08:17)
[2020-06-18] MEDS: Metoprolol Tartrate 50 MG TAB PO SCH (08:17)
[2020-06-18] MEDS: Folic Acid 1 MG TAB PO SCH (08:17)
[2020-06-18] MEDS: hydrALAZINE 25 MG TAB PO SCH (08:18)
[2020-06-18] MEDS: Senokot S 8.6-50 MG TAB PO SCH (08:18)
[2020-06-18 08:27] VITALS: BP 174/75; TEMP 98.7
--- NOTE | 2020-06-18 10:40 | PRG ---
DATE OF SERVICE: 06/18/2020 SUBJECTIVE: Ms. Shelton is a 44-year-old female, who was initially admitted for a left ankle fracture, status post left ankle ORIF and being followed by the [facility]al [facility] for acute kidney injury on top of her chronic renal failure. She had a superimposed prerenal azotemia and was given volume repletion with slow improvement of the renal function. No complaints today. No chest pain or shortness of breath. OBJECTIVE: VITAL SIGNS: Blood pressure 174/75, heart rate 83, respiratory rate 16, temperature 98.7, and O2 saturation 98%. GENERAL: The patient is awake, alert, comfortable, not in overt distress. SKIN: Adequate turgor. HEENT: She has slightly pale conjunctivae. Anicteric sclerae. NECK: No neck mass. No carotid bruits. No JVD. CHEST: No deformities. LUNGS: Clear breath sounds. HEART: Normal sinus rhythm. No murmur. No gallops. No rubs. ABDOMEN: Globular, soft, nontender. No masses. EXTREMITIES: No edema. No deformities. MEDICATIONS: Medications of June 18, 2020, reviewed. LABORATORY DATA: Laboratories of June 18, 2020; white count is 8.7 and hemoglobin is 8. Sodium 138, potassium 4.3, chloride 111, carbon dioxide 18, BUN 34, creatinine 2.98, glucose 60, and calcium 7.1. ASSESSMENT AND PLAN: 1. Acute kidney injury-superimposed prerenal azotemia, improving renal function. Most recent creatinine is 2.98. Please note, creatinine was said to have peaked at 3.66. No indication for any dialytic intervention. 2. Chronic renal failure secondary to presumed diabetic nephropathy. Continue supportive care. 3. Anemia. Continue iron supplementation. 4. Metabolic acidosis, on sodium bicarbonate. The patient can be discharged from a renal point of view. We will follow her up at the [facility]. Job ID: [id number]
[2020-06-18] MEDS ORDERED: Aspirin 81 mg Enteric Coated Tablet PO SCH (21:00)
== END 2020-06-18 11:50 | disposition home or self-care (01) | DRG 493 ==
LOC: SDC 07:18 → 3SE 15:36 → OBSVTOIN 06-16 12:11
PROVIDERS: ADMIT Orthopaedic Surgery; ATTEND Orthopaedic Surgery
PROC: 0QSH04Z Reposition Left Tibia with Internal Fixation Device, Open Approach (ICD-10-PCS; principal; 2020-06-14)
DX: S82.842A Displaced bimalleolar fracture of left lower leg, initial encounter for closed fracture (principal); N17.9 Acute kidney failure, unspecified; E87.2 Acidosis; E87.1 Hypo-osmolality and hyponatremia; N18.4 Chronic kidney disease, stage 4 (severe); N25.81 Secondary hyperparathyroidism of renal origin; E11.65 Type 2 diabetes mellitus with hyperglycemia; E78.5 Hyperlipidemia, unspecified; E11.22 Type 2 diabetes mellitus with diabetic chronic kidney disease; I12.9 Hypertensive chronic kidney disease with stage 1 through stage 4 chronic kidney disease, or unspecified chronic kidney disease; E66.9 Obesity, unspecified; E87.5 Hyperkalemia; F32.9 Major depressive disorder, single episode, unspecified; E83.51 Hypocalcemia; K59.00 Constipation, unspecified; W18.30XA Fall on same level, unspecified, initial encounter; Z79.899 Other long term (current) drug therapy; Z90.49 Acquired absence of other specified parts of digestive tract; Z79.4 Long term (current) use of insulin; Z90.710 Acquired absence of both cervix and uterus; Z68.35 Body mass index [BMI] 35.0-35.9, adult
CPT/HCPCS: 36415; 36416; 76000; 80048; 81001; 83735; 83970; 84100; 85025; 96374; 96376; C1713; G0378; J0360; J0690; J1100; J1200; J1815; J1885; J2250; J2405; J2704; J3010; S0020

== ENCOUNTER 2020-07-17 09:25 | Emergency (ER) | payer MEDICAID ==
[2020-07-17] MEDS ORDERED: Lidocaine Viscous Sol 2% 15 ml UD Cup ONE (10:10)
[2020-07-17] MEDS ORDERED: Milk Of Magnesia 30 ML UDCUP ONE (10:10)
[2020-07-17] MEDS ORDERED: Ondansetron ODT 4 MG TAB ONE (10:13)
[2020-07-17 10:50] LABS: #Basophils 0.1 thou/uL (0.0-0.2); #Eosinphils 0.2 thou/uL (0.0-0.7); #Lymphocytes 2.6 thou/uL (1.20-3.40); #Monocytes 0.6 thou/uL (0.11-0.59); %Basophils 0.6 % (0.0-1.0); %Eosinophils 1.7 % (0.0-10.0); %Monocytes 4.8 % (0.0-10.0); Hemoglobin 12.7 g/dL (12.0-16.0); Mean Corpuscular HGB CONC 34.2 g/dL (32.0-36.0); Mean Corpuscular Hemoglobin 30.7 pg (27.0-31.0); Mean Corpuscular Volume 89.9 fL (78.0-98.0); Mean Platelet Volume 7.1 fL (7.4-10.4); Platelet Count 420 thou/uL (130-400); RBC Distribution Width 11.1 % (11.5-14.5); Red Blood Cell (RBC) Count 4.14 mill/uL (4.20-5.40); White Blood Cell (WBC) Count 13.5 thou/uL (4.8-10.8)
[2020-07-17 11:22] LABS: ALT (SGPT) 8 U/L (8-55); AST (SGOT) 11 U/L (5-34); Albumin 2.9 g/dL (3.5-5.0); Alkaline Phosphatase 127 U/L (40-110); Anion Gap 14 mmol/L (10-20); BUN (Urea Nitrogen) 27 mg/dL (7.0-18.7); Bilirubin, Total 0.3 mg/dL (0.2-1.2); Calc. Creatinine Clearance 0 mL/min (70-130); Calcium 8.3 mg/dL (7.8-10.44); Carbon Dioxide 17 mmol/L (22-29); Chloride 107 mmol/L (98-107); Globulin 3.7 g/dL (2.4-3.5); Glucose 227 mg/dL (70-105); Lipase 51 U/L (8-78); Potassium 4.2 mmol/L (3.5-5.1); Protein, Total 6.6 g/dL (6.0-8.3); Sodium 134 mmol/L (136-145)
--- NOTE | 2020-08-03 21:52 | EKG ---
Test Reason : Blood Pressure : / mmHG Vent. Rate : 071 BPM Atrial Rate : 071 BPM P-R Int : 136 ms QRS Dur : 072 ms QT Int : 400 ms P-R-T Axes : 012 -03 017 degrees QTc Int : 434 ms Normal sinus rhythm Normal ECG Confirmed by LUDWIG CHAVEZ DO ([id number]), content editor JOSE GUADALUPE JACK ([id number]) on 08/03/2020 9:51:53 PM Referred By: Confirmed By:LUDWIG CHAVEZ DO
== END 2020-07-17 12:17 | disposition home or self-care (01) ==
LOC: ERS 09:25
DX: R10.13 Epigastric pain (principal); E11.9 Type 2 diabetes mellitus without complications; I10 Essential (primary) hypertension; Z79.4 Long term (current) use of insulin; Z79.899 Other long term (current) drug therapy
CPT/HCPCS: 36415; 80053; 83690; 85025; 93005; Q0162

== ENCOUNTER 2021-01-29 22:43 | Inpatient (IN) | payer MEDICAID, SELFPAY ==
[2021-01-29 23:13] LABS: #Basophils 0.1 thou/uL (0.0-0.2); #Eosinphils 0.1 thou/uL (0.0-0.7); #Lymphocytes 2.1 thou/uL (1.20-3.40); #Monocytes 0.5 thou/uL (0.11-0.59); #Neutrophils 8.9 thou/uL (1.40-6.50); %Basophils 0.7 % (0.0-1.0); %Eosinophils 1.2 % (0.0-10.0); %Lymphocytes 17.8 % (21.0-51.0); %Monocytes 4.1 % (0.0-10.0); %Neutrophils 76.3 % (42.0-75.0); Hemoglobin 8.1 g/dL (12.0-16.0); Mean Corpuscular Hemoglobin 31.2 pg (27.0-31.0); Mean Corpuscular Volume 89.3 fL (78.0-98.0); Mean Platelet Volume 6.4 fL (7.4-10.4); Platelet Count 365 thou/uL (130-400); RBC Distribution Width 11.9 % (11.5-14.5); Red Blood Cell (RBC) Count 2.59 mill/uL (4.20-5.40); White Blood Cell (WBC) Count 11.7 thou/uL (4.8-10.8)
[2021-01-29 23:28] LABS: ALT (SGPT) 27 U/L (8-55); AST (SGOT) 19 U/L (5-34); Albumin 3.3 g/dL (3.5-5.0); Alkaline Phosphatase 108 U/L (40-110); Anion Gap 16 mmol/L (10-20); BUN (Urea Nitrogen) 54 mg/dL (7.0-18.7); Bilirubin, Total 0.3 mg/dL (0.2-1.2); Calc. Creatinine Clearance 0 mL/min (70-130); Calcium 6.3 mg/dL (7.8-10.44); Carbon Dioxide 16 mmol/L (22-29); Chloride 106 mmol/L (98-107); Globulin 2.9 g/dL (2.4-3.5); Glucose 250 mg/dL (70-105); Potassium 4.9 mmol/L (3.5-5.1); Protein, Total 6.2 g/dL (6.0-8.3); Sodium 133 mmol/L (136-145)
[2021-01-30] MEDS ORDERED: hydrALAZINE 20 MG/ML VIAL ONE (00:33)
[2021-01-30 00:55] LABS: Bacteria/HPF None Seen HPF (None Seen); Bilirubin Negative (Negative); Blood, Urine 1+ (Negative); Clarity Clear (Clear); Glucose, Urine (Dipstick) 500 mg/dL (Negative); Ketone, Urine Negative (Negative); Leukocyte Negative Leu/uL (Negative); Nitrite Negative (Negative); Protein, Urine (Dipstick) 300 mg/dL (Neg-Trace); RBC/HPF 0-3 HPF (0-3); Squamous Epithelial 0-3 HPF (0-3); Urobilinogen Normal mg/dL (Less than 2); WBC/HPF 0-3 HPF (0-3); pH, Urine 6.5 (5.0-9.0)
[2021-01-30 01:04] LABS: Pregnancy Test - Urine (BHCG) Negative (Negative)
[2021-01-30 01:05] LABS: Pregu Control Background? CLEAR/WHITE (CLR/WHITE); Pregu Control Bar Appear? YES (CONTROL BAR)
[2021-01-30] MEDS ORDERED: Ondansetron PF 4 MG/2 ML Vial ONE (01:13)
[2021-01-30] MEDS ORDERED: cloNIDine 0.1 MG TAB ONE (01:13)
[2021-01-30] MEDS ORDERED: Acetaminophen 500 MG TAB ONE (01:13)
[2021-01-30 02:13] LABS: Anion Gap 14 mmol/L (10-20); BUN (Urea Nitrogen) 55 mg/dL (7.0-18.7); Calc. Creatinine Clearance 0 mL/min (70-130); Calcium 6.1 mg/dL (7.8-10.44); Carbon Dioxide 13 mmol/L (22-29); Chloride 108 mmol/L (98-107); Glucose 230 mg/dL (70-105); Sodium 131 mmol/L (136-145)
[2021-01-30] MEDS ORDERED: diphenhydrAMINE 50 MG/ML VIAL ONE (02:15)
[2021-01-30] MEDS ORDERED: Metoclopramide HCl 10 MG/2 ML VIAL ONE (02:15)
[2021-01-30] MEDS ORDERED: Calcium Chloride 1 GM/10 ML Abboject SYRINGE ONE (02:27)
[2021-01-30 04:27] LABS: SARS-CoV-2 NAA Rapid Test Not Detected (NotDetected)
[2021-01-30] MEDS ORDERED: Dextrose 5% in Water 1,000 ML IV PRN (07:31)
[2021-01-30] MEDS ORDERED: Ondansetron PF 4 MG/2 ML Vial IVP PRN (07:31)
[2021-01-30] MEDS ORDERED: Dextrose 50% Abboject 50 ML SYRINGE SLOW IVP PRN (07:31)
[2021-01-30 09:12] LABS: Troponin I 0.099 ng/mL (< 0.028)
[2021-01-30 10:50] LABS: Troponin I 0.291 ng/mL (< 0.028)
[2021-01-30] MEDS ORDERED: HumaLOG 300 UNITS/3 ML VIAL ONE (11:37)
[2021-01-30] MEDS: HumaLOG 300 UNITS/3 ML VIAL SC PRN (11:45)
[2021-01-30 12:52] LABS: Troponin I 0.607 ng/mL (< 0.028)
[2021-01-30 16:00] VITALS: BMI 35.5
[2021-01-30] MEDS ORDERED: Labetalol HCl 100 MG/20 ML VIAL SLOW IVP PRN (16:06)
[2021-01-30] MEDS ORDERED: Sodium Chloride 0.9% 10 ML ONE (17:06)
[2021-01-30] MEDS: hydrALAZINE 20 MG/ML VIAL SLOW IVP PRN (17:36)
[2021-01-30] MEDS: Acetaminophen 325 MG TAB PO PRN (17:39)
[2021-01-30] MEDS: Aspirin 81 mg Enteric Coated Tablet PO SCH (20:37)
[2021-01-30] MEDS: Zolpidem Tartrate 5 MG TAB PO PRN (20:38)
[2021-01-30] MEDS: Nitroglycerin 2% Ointment 1 INCH/1 GM Packet TOP SCH (20:38)
[2021-01-30] MEDS: Metoprolol Tartrate 25 MG TAB PO SCH (20:38)
[2021-01-31 05:05] LABS: #Basophils 0.1 thou/uL (0.0-0.2); #Eosinphils 0.2 thou/uL (0.0-0.7); #Lymphocytes 2.6 thou/uL (1.20-3.40); #Monocytes 0.5 thou/uL (0.11-0.59); #Neutrophils 6.9 thou/uL (1.40-6.50); %Basophils 0.8 % (0.0-1.0); %Eosinophils 1.5 % (0.0-10.0); %Monocytes 5.2 % (0.0-10.0); %Neutrophils 67.5 % (42.0-75.0); Hemoglobin 7.3 g/dL (12.0-16.0); Mean Corpuscular HGB CONC 34.1 g/dL (32.0-36.0); Mean Corpuscular Hemoglobin 31.1 pg (27.0-31.0); Mean Corpuscular Volume 91.2 fL (78.0-98.0); Mean Platelet Volume 6.3 fL (7.4-10.4); Platelet Count 334 thou/uL (130-400); RBC Distribution Width 12.3 % (11.5-14.5); Red Blood Cell (RBC) Count 2.35 mill/uL (4.20-5.40); White Blood Cell (WBC) Count 10.3 thou/uL (4.8-10.8)
[2021-01-31 05:24] LABS: Anion Gap 13 mmol/L (10-20); BUN (Urea Nitrogen) 54 mg/dL (7.0-18.7); Calc. Creatinine Clearance 12 mL/min (70-130); Calcium 6.8 mg/dL (7.8-10.44); Carbon Dioxide 17 mmol/L (22-29); Chloride 110 mmol/L (98-107); Glucose 121 mg/dL (70-105); Iron 68 ug/dL (50-170); Iron Binding Capacity, Total 211 mcg/dL (265-497); Phosphorus 5.4 mg/dL (2.3-4.7); Potassium 4.3 mmol/L (3.5-5.1); Sodium 136 mmol/L (136-145)
[2021-01-31 05:41] LABS: HBSAB Concentration Less than 8.00 mIU/mL; Hep B Core Total Ab Non-Reactive (NonReactive); Hep B Core Total Index 0.06 S/CO (0-0.79); Hep B Surf AB Non-Reactive (NonReactive); Hep B Surf Ag Non-Reactive S/CO (NonReactive); Hep C IgG Ab Non-Reactive (NonReactive); Hep C Index 0.07 S/CO (0-0.79)
[2021-01-31] MEDS: Nitroglycerin 2% Ointment 1 INCH/1 GM Packet TOP SCH ×3 (06:28→22:04)
[2021-01-31] MEDS: Acetaminophen 325 MG TAB PO PRN ×2 (06:29→15:40)
[2021-01-31] MEDS ORDERED: CEFAZOLIN 2 GM in Premix Bag 1 BAG IVPB SCH (08:45)
[2021-01-31] MEDS: Metoprolol Tartrate 25 MG TAB PO SCH ×2 (09:18→20:34)
[2021-01-31] MEDS: Ferrous Sulfate 325 MG TAB PO SCH ×2 (09:19→15:40)
[2021-01-31] MEDS: Aspirin 81 mg Enteric Coated Tablet PO SCH ×2 (09:19→20:34)
[2021-01-31] MEDS ORDERED: EPOETIN ALFA-EPBX (ESRD) 4,000 UNIT/ML VIAL SC SCH (11:15)
[2021-01-31] MEDS ORDERED: Heparin 10,000 UNITS/ 10 ML VIAL ONE (13:09)
[2021-01-31] MEDS ORDERED: Sodium Chloride 0.9% 20 ML ONE (13:09)
[2021-01-31] MEDS ORDERED: Lidocaine 1% w/Epinephrine 1:100K 20 ML VIAL ONE (13:09)
[2021-01-31] MEDS ORDERED: Bupivacaine PF 0.5% 30 ML VIAL ONE (13:09)
[2021-01-31] MEDS ORDERED: Propofol 500 MG/50 ML VIAL ONE (13:18)
[2021-01-31] MEDS ORDERED: Fentanyl 100 MCG/2 ML VIAL ONE (13:18)
[2021-01-31] MEDS ORDERED: Dexamethasone 20 MG/5 ML VIAL ONE (13:25)
[2021-01-31] MEDS ORDERED: Ondansetron PF 4 MG/2 ML Vial ONE (13:25)
[2021-01-31] MEDS: Calcium Acetate 667 MG CAP PO SCH ×2 (13:27→17:54)
[2021-01-31] MEDS ORDERED: HYDROmorphone 2 MG/ML VIAL SLOW IVP PRN (13:43)
[2021-01-31] MEDS ORDERED: Meperidine HCl/PF 25 MG/ML VIAL SLOW IVP PRN (13:43)
[2021-01-31] MEDS ORDERED: Promethazine HCl 25 MG/ML VIAL IM PRN (13:43)
[2021-01-31] MEDS ORDERED: Promethazine HCl 25 MG/ML VIAL IVPB PRN (13:43)
[2021-01-31] MEDS: hydrALAZINE 20 MG/ML VIAL SLOW IVP PRN (14:56)
[2021-01-31] MEDS: HumaLOG 300 UNITS/3 ML VIAL SC PRN (22:02)
[2021-02-01] MEDS: Acetaminophen 325 MG TAB PO PRN (00:50)
[2021-02-01 05:59] LABS: Hemoglobin A1c 6.5 % (4.0-6.0)
[2021-02-01] MEDS: Nitroglycerin 2% Ointment 1 INCH/1 GM Packet TOP SCH ×3 (06:38→21:00)
[2021-02-01] MEDS: HumaLOG 300 UNITS/3 ML VIAL SC PRN ×4 (06:38→22:45)
[2021-02-01] MEDS: Calcitriol 0.25 MCG CAP PO SCH (07:40)
[2021-02-01] MEDS: Aspirin 81 mg Enteric Coated Tablet PO SCH ×2 (07:40→20:59)
[2021-02-01] MEDS: Ferrous Sulfate 325 MG TAB PO SCH ×2 (07:40→17:59)
[2021-02-01] MEDS: Calcium Acetate 667 MG CAP PO SCH ×3 (07:40→17:59)
[2021-02-01] MEDS: Metoprolol Tartrate 25 MG TAB PO SCH ×2 (07:40→20:59)
[2021-02-01] MEDS ORDERED: Heparin 10,000 UNITS/ 10 ML VIAL ONE (09:13)
[2021-02-02] MEDS: hydrALAZINE 20 MG/ML VIAL SLOW IVP PRN ×2 (05:41→23:47)
[2021-02-02] MEDS: Nitroglycerin 2% Ointment 1 INCH/1 GM Packet TOP SCH ×2 (05:48→13:29)
[2021-02-02 06:02] LABS: #Basophils 0.1 thou/uL (0.0-0.2); #Eosinphils 0.2 thou/uL (0.0-0.7); #Lymphocytes 3.1 thou/uL (1.20-3.40); #Monocytes 0.6 thou/uL (0.11-0.59); #Neutrophils 6.8 thou/uL (1.40-6.50); %Basophils 0.7 % (0.0-1.0); %Eosinophils 1.4 % (0.0-10.0); %Monocytes 5.3 % (0.0-10.0); %Neutrophils 63.6 % (42.0-75.0); Hemoglobin 6.9 g/dL (12.0-16.0); Mean Corpuscular HGB CONC 33.9 g/dL (32.0-36.0); Mean Corpuscular Hemoglobin 30.8 pg (27.0-31.0); Mean Platelet Volume 6.5 fL (7.4-10.4); Platelet Count 313 thou/uL (130-400); RBC Distribution Width 12.3 % (11.5-14.5); Red Blood Cell (RBC) Count 2.25 mill/uL (4.20-5.40); White Blood Cell (WBC) Count 10.7 thou/uL (4.8-10.8)
[2021-02-02 06:23] LABS: Anion Gap 11 mmol/L (10-20); BUN (Urea Nitrogen) 48 mg/dL (7.0-18.7); Calc. Creatinine Clearance 14 mL/min (70-130); Calcium 6.6 mg/dL (7.8-10.44); Carbon Dioxide 22 mmol/L (22-29); Chloride 106 mmol/L (98-107); Glucose 128 mg/dL (70-105); Potassium 3.9 mmol/L (3.5-5.1); Sodium 135 mmol/L (136-145)
[2021-02-02] MEDS: Calcium Acetate 667 MG CAP PO SCH ×3 (07:43→17:04)
[2021-02-02] MEDS: Ferrous Sulfate 325 MG TAB PO SCH ×2 (07:43→17:03)
[2021-02-02] MEDS: Aspirin 81 mg Enteric Coated Tablet PO SCH ×2 (07:44→21:28)
[2021-02-02] MEDS: Metoprolol Tartrate 25 MG TAB PO SCH ×2 (07:44→21:27)
[2021-02-02] MEDS: Calcitriol 0.25 MCG CAP PO SCH (07:44)
[2021-02-02] MEDS ORDERED: Heparin 10,000 UNITS/ 10 ML VIAL ONE (09:17)
[2021-02-02] MEDS: HumaLOG 300 UNITS/3 ML VIAL SC PRN ×3 (13:03→21:30)
[2021-02-02] MEDS: cloNIDine 0.1 MG TAB PO PRN ×3 (13:08→21:28)
[2021-02-02] MEDS: Zolpidem Tartrate 5 MG TAB PO PRN (23:50)
[2021-02-03] MEDS: cloNIDine 0.1 MG TAB PO PRN ×2 (04:32→11:28)
[2021-02-03 04:39] LABS: #Basophils 0.1 thou/uL (0.0-0.2); #Eosinphils 0.3 thou/uL (0.0-0.7); #Lymphocytes 2.3 thou/uL (1.20-3.40); #Monocytes 0.6 thou/uL (0.11-0.59); %Basophils 0.6 % (0.0-1.0); %Eosinophils 2.5 % (0.0-10.0); %Lymphocytes 22.2 % (21.0-51.0); %Neutrophils 68.7 % (42.0-75.0); Hemoglobin 8.7 g/dL (12.0-16.0); Mean Corpuscular HGB CONC 34.5 g/dL (32.0-36.0); Mean Corpuscular Volume 89.9 fL (78.0-98.0); Mean Platelet Volume 6.6 fL (7.4-10.4); Platelet Count 288 thou/uL (130-400); RBC Distribution Width 12.6 % (11.5-14.5); Red Blood Cell (RBC) Count 2.82 mill/uL (4.20-5.40); White Blood Cell (WBC) Count 10.2 thou/uL (4.8-10.8)
[2021-02-03 04:40] LABS: Anion Gap 11 mmol/L (10-20); BUN (Urea Nitrogen) 34 mg/dL (7.0-18.7); Calc. Creatinine Clearance 19 mL/min (70-130); Calcium 7.2 mg/dL (7.8-10.44); Carbon Dioxide 24 mmol/L (22-29); Chloride 100 mmol/L (98-107); Glucose 206 mg/dL (70-105); Sodium 131 mmol/L (136-145)
[2021-02-03] MEDS: HumaLOG 300 UNITS/3 ML VIAL SC PRN ×3 (05:52→20:33)
[2021-02-03] MEDS: Metoprolol Tartrate 25 MG TAB PO SCH (08:08)
[2021-02-03] MEDS: Calcium Acetate 667 MG CAP PO SCH ×3 (08:08→17:14)
[2021-02-03] MEDS: Ferrous Sulfate 325 MG TAB PO SCH ×2 (08:08→17:14)
[2021-02-03] MEDS: Calcitriol 0.25 MCG CAP PO SCH (08:08)
[2021-02-03] MEDS: Aspirin 81 mg Enteric Coated Tablet PO SCH ×2 (08:08→20:33)
[2021-02-03] MEDS: hydrALAZINE 20 MG/ML VIAL SLOW IVP PRN (14:32)
[2021-02-03] MEDS: hydrALAZINE 25 MG TAB PO SCH ×2 (15:28→20:33)
[2021-02-03] MEDS: Carvedilol 6.25 MG TAB PO SCH (17:14)
[2021-02-03] MEDS: Lantus 1000 UNITS/10 ML VIAL SC SCH (20:33)
[2021-02-04] MEDS: Acetaminophen 325 MG TAB PO PRN ×2 (00:10→08:58)
[2021-02-04 05:40] LABS: #Basophils 0.1 thou/uL (0.0-0.2); #Eosinphils 0.3 thou/uL (0.0-0.7); #Lymphocytes 2.2 thou/uL (1.20-3.40); #Monocytes 0.6 thou/uL (0.11-0.59); #Neutrophils 8.2 thou/uL (1.40-6.50); %Basophils 0.6 % (0.0-1.0); %Eosinophils 2.3 % (0.0-10.0); %Lymphocytes 19.4 % (21.0-51.0); %Monocytes 5.1 % (0.0-10.0); %Neutrophils 72.6 % (42.0-75.0); Hemoglobin 9.6 g/dL (12.0-16.0); Mean Corpuscular Hemoglobin 31.4 pg (27.0-31.0); Mean Corpuscular Volume 89.8 fL (78.0-98.0); Mean Platelet Volume 6.5 fL (7.4-10.4); Platelet Count 300 thou/uL (130-400); RBC Distribution Width 12.7 % (11.5-14.5); Red Blood Cell (RBC) Count 3.07 mill/uL (4.20-5.40); White Blood Cell (WBC) Count 11.2 thou/uL (4.8-10.8)
[2021-02-04 06:04] LABS: Anion Gap 11 mmol/L (10-20); BUN (Urea Nitrogen) 23 mg/dL (7.0-18.7); Calc. Creatinine Clearance 23 mL/min (70-130); Calcium 7.8 mg/dL (7.8-10.44); Carbon Dioxide 28 mmol/L (22-29); Chloride 98 mmol/L (98-107); Glucose 177 mg/dL (70-105); Potassium 4.1 mmol/L (3.5-5.1); Sodium 133 mmol/L (136-145)
[2021-02-04] MEDS: HumaLOG 300 UNITS/3 ML VIAL SC PRN ×4 (06:06→20:40)
[2021-02-04] MEDS: Calcium Acetate 667 MG CAP PO SCH ×3 (08:41→16:09)
[2021-02-04] MEDS: Aspirin 81 mg Enteric Coated Tablet PO SCH ×2 (08:42→20:39)
[2021-02-04] MEDS: Calcitriol 0.25 MCG CAP PO SCH (08:42)
[2021-02-04] MEDS: Carvedilol 6.25 MG TAB PO SCH ×2 (08:42→16:09)
[2021-02-04] MEDS: Lantus 1000 UNITS/10 ML VIAL SC SCH ×2 (08:42→20:40)
[2021-02-04] MEDS: hydrALAZINE 25 MG TAB PO SCH ×3 (08:42→20:40)
[2021-02-04] MEDS: Ferrous Sulfate 325 MG TAB PO SCH ×2 (08:42→16:09)
[2021-02-04] MEDS ORDERED: CEFAZOLIN 2 GM in Premix Bag 1 BAG IVPB SCH (08:45)
[2021-02-04] MEDS ORDERED: Lisinopril 2.5 MG TAB PO SCH (12:15)
[2021-02-04] MEDS ORDERED: Polyethylene Glycol 3350 17 GM Packet PO PRN (15:00)
[2021-02-04] MEDS: hydrALAZINE 20 MG/ML VIAL SLOW IVP PRN (15:26)
[2021-02-04] MEDS: Bisacodyl 5 MG TAB PO PRN (16:42)
[2021-02-04] MEDS: Zolpidem Tartrate 5 MG TAB PO PRN (22:59)
[2021-02-05 05:12] LABS: #Basophils 0.1 thou/uL (0.0-0.2); #Eosinphils 0.3 thou/uL (0.0-0.7); #Lymphocytes 2.3 thou/uL (1.20-3.40); #Monocytes 0.7 thou/uL (0.11-0.59); #Neutrophils 7.4 thou/uL (1.40-6.50); %Basophils 0.6 % (0.0-1.0); %Eosinophils 2.9 % (0.0-10.0); %Lymphocytes 21.4 % (21.0-51.0); %Monocytes 6.1 % (0.0-10.0); %Neutrophils 69.1 % (42.0-75.0); Hemoglobin 9.6 g/dL (12.0-16.0); Mean Corpuscular HGB CONC 34.3 g/dL (32.0-36.0); Mean Corpuscular Hemoglobin 31.2 pg (27.0-31.0); Mean Corpuscular Volume 90.9 fL (78.0-98.0); Mean Platelet Volume 6.4 fL (7.4-10.4); Platelet Count 334 thou/uL (130-400); RBC Distribution Width 13.1 % (11.5-14.5); Red Blood Cell (RBC) Count 3.09 mill/uL (4.20-5.40); White Blood Cell (WBC) Count 10.7 thou/uL (4.8-10.8)
[2021-02-05 05:27] LABS: Anion Gap 11 mmol/L (10-20); BUN (Urea Nitrogen) 34 mg/dL (7.0-18.7); Calc. Creatinine Clearance 17 mL/min (70-130); Calcium 8.3 mg/dL (7.8-10.44); Carbon Dioxide 27 mmol/L (22-29); Chloride 97 mmol/L (98-107); Glucose 217 mg/dL (70-105); Potassium 3.7 mmol/L (3.5-5.1); Sodium 131 mmol/L (136-145)
[2021-02-05] MEDS: Bisacodyl 5 MG TAB PO PRN (08:18)
[2021-02-05] MEDS ORDERED: Epoetin (ESRD) 20,000 UNITS/ML SC SCH (09:00)
[2021-02-05] MEDS: Aspirin 81 mg Enteric Coated Tablet PO SCH ×2 (09:16→21:16)
[2021-02-05] MEDS: Lisinopril 2.5 MG TAB PO SCH (09:16)
[2021-02-05] MEDS: hydrALAZINE 25 MG TAB PO SCH ×3 (09:16→21:15)
[2021-02-05] MEDS: Calcitriol 0.25 MCG CAP PO SCH (09:17)
[2021-02-05] MEDS: Ferrous Sulfate 325 MG TAB PO SCH ×2 (09:20→17:52)
[2021-02-05] MEDS: Lantus 1000 UNITS/10 ML VIAL SC SCH ×2 (09:21→21:16)
[2021-02-05] MEDS: Calcium Acetate 667 MG CAP PO SCH ×3 (09:21→17:52)
[2021-02-05] MEDS: Carvedilol 6.25 MG TAB PO SCH ×2 (10:05→17:52)
[2021-02-05] MEDS ORDERED: EPOETIN ALFA-EPBX (ESRD) 4,000 UNIT/ML VIAL SC SCH (12:00)
[2021-02-05] MEDS ORDERED: NIFEdipine XL 30 MG TAB PO SCH (12:01)
[2021-02-05] MEDS ORDERED: Fentanyl 100 MCG/2 ML VIAL ONE (13:41)
[2021-02-05] MEDS ORDERED: Midazolam HCl 2 mg/2 ml Vial ONE (13:41)
[2021-02-05] MEDS ORDERED: Ondansetron PF 4 MG/2 ML Vial ONE (13:41)
[2021-02-05] MEDS ORDERED: Bupivacaine PF 0.5% 30 ML VIAL ONE (14:59)
[2021-02-05] MEDS ORDERED: Heparin 5,000 UNITS/ML VIAL ONE (14:59)
[2021-02-05] MEDS ORDERED: Lidocaine 1% w/Epinephrine 1:100K 20 ML VIAL ONE (14:59)
[2021-02-05] MEDS ORDERED: Protamine Sulfate 50 MG/5 ML VIAL ONE (14:59)
[2021-02-05] MEDS ORDERED: Propofol 1,000 MG/100 ML VIAL IV ONE (15:04)
[2021-02-05] MEDS ORDERED: Bupivacaine HCl 0.5%/Epinephrine 1:200,000/PF 30 ml Vial ONE (15:21)
[2021-02-05] MEDS ORDERED: Lidocaine 1% PF 5 ML VIAL ONE (15:21)
[2021-02-05] MEDS ORDERED: PROPOFOL 200 MG/20 ML VIAL ONE (15:21)
[2021-02-05] MEDS ORDERED: CEFAZOLIN 1 GM VIAL ONE (15:54)
[2021-02-05] MEDS ORDERED: traMADol HCl 50 MG TAB PO PRN (16:25)
[2021-02-05] MEDS: HumaLOG 300 UNITS/3 ML VIAL SC PRN (21:16)
[2021-02-06] MEDS: Acetaminophen 325 MG TAB PO PRN (03:37)
[2021-02-06 05:21] LABS: #Basophils 0.1 thou/uL (0.0-0.2); #Eosinphils 0.2 thou/uL (0.0-0.7); #Lymphocytes 2.3 thou/uL (1.20-3.40); #Monocytes 0.6 thou/uL (0.11-0.59); %Basophils 0.5 % (0.0-1.0); %Eosinophils 2.2 % (0.0-10.0); %Lymphocytes 22.5 % (21.0-51.0); %Neutrophils 68.8 % (42.0-75.0); Hemoglobin 9.4 g/dL (12.0-16.0); Mean Corpuscular Hemoglobin 31.1 pg (27.0-31.0); Mean Corpuscular Volume 91.5 fL (78.0-98.0); Mean Platelet Volume 6.7 fL (7.4-10.4); Platelet Count 318 thou/uL (130-400); RBC Distribution Width 13.1 % (11.5-14.5); Red Blood Cell (RBC) Count 3.01 mill/uL (4.20-5.40); White Blood Cell (WBC) Count 10.2 thou/uL (4.8-10.8)
[2021-02-06 05:47] LABS: Anion Gap 13 mmol/L (10-20); BUN (Urea Nitrogen) 37 mg/dL (7.0-18.7); Calc. Creatinine Clearance 14 mL/min (70-130); Carbon Dioxide 24 mmol/L (22-29); Chloride 100 mmol/L (98-107); Glucose 146 mg/dL (70-105); Magnesium 1.7 mg/dL (1.6-2.6); Potassium 3.6 mmol/L (3.5-5.1); Sodium 133 mmol/L (136-145)
[2021-02-06] MEDS ORDERED: Heparin 10,000 UNITS/ 10 ML VIAL ONE (09:19)
[2021-02-06] MEDS: Calcium Acetate 667 MG CAP PO SCH ×3 (09:28→17:55)
[2021-02-06] MEDS: Lisinopril 2.5 MG TAB PO SCH (09:28)
[2021-02-06] MEDS: Carvedilol 6.25 MG TAB PO SCH ×2 (09:28→17:56)
[2021-02-06] MEDS: Calcitriol 0.25 MCG CAP PO SCH (09:28)
[2021-02-06] MEDS: Ferrous Sulfate 325 MG TAB PO SCH ×2 (09:29→17:55)
[2021-02-06] MEDS: Aspirin 81 mg Enteric Coated Tablet PO SCH ×2 (09:29→20:26)
[2021-02-06] MEDS: hydrALAZINE 25 MG TAB PO SCH ×3 (09:29→20:26)
[2021-02-06] MEDS: Lantus 1000 UNITS/10 ML VIAL SC SCH ×2 (09:30→20:29)
[2021-02-06] MEDS: HumaLOG 300 UNITS/3 ML VIAL SC PRN ×2 (11:39→20:31)
[2021-02-06 17:38] VITALS: BP 135/49; TEMP 98.6
== END 2021-02-06 20:45 | disposition home or self-care (01) | DRG 674 ==
LOC: ERS 22:43 → ERHOLD 01-30 03:47 → 2NO 01-30 15:51
PROVIDERS: ADMIT Student in an Organized Health Care Education/Training Program; ATTEND Internal Medicine
PROC: 0JH63XZ Insertion of Tunneled Vascular Access Device into Chest Subcutaneous Tissue and Fascia, Percutaneous Approach (ICD-10-PCS; 2021-01-31)
PROC: 02HV33Z Insertion of Infusion Device into Superior Vena Cava, Percutaneous Approach (ICD-10-PCS; 2021-01-31)
PROC: B5181ZA Fluoroscopy of Superior Vena Cava using Low Osmolar Contrast, Guidance (ICD-10-PCS; 2021-01-31)
PROC: B548ZZA Ultrasonography of Superior Vena Cava, Guidance (ICD-10-PCS; 2021-01-31)
PROC: 30233N1 Transfusion of Nonautologous Red Blood Cells into Peripheral Vein, Percutaneous Approach (ICD-10-PCS; 2021-02-02)
PROC: 5A1D70Z Performance of Urinary Filtration, Intermittent, Less than 6 Hours Per Day (ICD-10-PCS; 2021-02-04)
PROC: 031C0ZF Bypass Left Radial Artery to Lower Arm Vein, Open Approach (ICD-10-PCS; principal; 2021-02-05)
DX: N17.9 Acute kidney failure, unspecified (principal); I12.0 Hypertensive chronic kidney disease with stage 5 chronic kidney disease or end stage renal disease; E87.2 Acidosis; I13.11 Hypertensive heart and chronic kidney disease without heart failure, with stage 5 chronic kidney disease, or end stage renal disease; E11.22 Type 2 diabetes mellitus with diabetic chronic kidney disease; N18.6 End stage renal disease; F41.9 Anxiety disorder, unspecified; E83.51 Hypocalcemia; E78.5 Hyperlipidemia, unspecified; F32.9 Major depressive disorder, single episode, unspecified; E66.01 Morbid (severe) obesity due to excess calories; R07.89 Other chest pain; Z20.822 Contact with and (suspected) exposure to COVID-19; N25.81 Secondary hyperparathyroidism of renal origin; D63.1 Anemia in chronic kidney disease; K59.00 Constipation, unspecified; E83.39 Other disorders of phosphorus metabolism; Z79.4 Long term (current) use of insulin; Z88.5 Allergy status to narcotic agent; Z90.711 Acquired absence of uterus with remaining cervical stump; Z90.49 Acquired absence of other specified parts of digestive tract; Z99.2 Dependence on renal dialysis; Z68.35 Body mass index [BMI] 35.0-35.9, adult
CPT/HCPCS: 0240U; 36415; 36416; 36430; 70450; 71045; 76705; 76770; 80048; 80053; 81003; 81015; 81025; 82728; 83036; 83540; 83550; 83735; 83970; 84100; 84484; 85025; 86704; 86706; 86803; 86850; 86900; 86901; 87340; 90935; 93005; 93970; 96374; 96375; C1752; G0257; J0360; J0690; J1100; J1200; J1644; J1815; J2250; J2405; J2704; J2720; J2765; J3010; P9016; Q5105; S0020

== ENCOUNTER 2021-02-11 | Emergency (ER) | payer MEDICAID | END 2021-02-11 21:02 | disposition home or self-care (01) ==

== ENCOUNTER 2021-02-14 12:08 | Emergency (ER) | payer MEDICAID, SELFPAY ==
[~2021-02-14 12:08] MED LIST: Heparin 10,000 UNITS/ 10 ML VIAL ONE
[2021-02-14 14:33] LABS: #Eosinphils 0.3 thou/uL (0.0-0.7); #Lymphocytes 2.2 thou/uL (1.20-3.40); #Monocytes 0.8 thou/uL (0.11-0.59); #Neutrophils 8.9 thou/uL (1.40-6.50); %Basophils 0.6 % (0.0-1.0); %Eosinophils 2.4 % (0.0-10.0); %Lymphocytes 17.8 % (21.0-51.0); %Monocytes 6.3 % (0.0-10.0); %Neutrophils 72.9 % (42.0-75.0); Hemoglobin 10.5 g/dL (12.0-16.0); Mean Corpuscular HGB CONC 34.8 g/dL (32.0-36.0); Mean Corpuscular Hemoglobin 31.7 pg (27.0-31.0); Mean Corpuscular Volume 91.2 fL (78.0-98.0); Mean Platelet Volume 6.5 fL (7.4-10.4); Platelet Count 350 thou/uL (130-400); White Blood Cell (WBC) Count 12.2 thou/uL (4.8-10.8)
[2021-02-14 14:34] LABS: #Basophils 0.1 thou/uL (0.0-0.2)
[2021-02-14 14:58] LABS: ALT (SGPT) Less than 7 U/L (8-55); AST (SGOT) 11 U/L (5-34); Albumin 3.2 g/dL (3.5-5.0); Alkaline Phosphatase 93 U/L (40-110); Anion Gap 12 mmol/L (10-20); BUN (Urea Nitrogen) 48 mg/dL (7.0-18.7); Bilirubin, Total 0.3 mg/dL (0.2-1.2); Calc. Creatinine Clearance 0 mL/min (70-130); Calcium 8.5 mg/dL (7.8-10.44); Carbon Dioxide 25 mmol/L (22-29); Chloride 99 mmol/L (98-107); Glucose 273 mg/dL (70-105); Potassium 4.3 mmol/L (3.5-5.1); Protein, Total 6.2 g/dL (6.0-8.3); Sodium 132 mmol/L (136-145)
== END 2021-02-14 21:34 | disposition home or self-care (01) ==
LOC: ERS 12:08
DX: I12.0 Hypertensive chronic kidney disease with stage 5 chronic kidney disease or end stage renal disease (principal); E11.22 Type 2 diabetes mellitus with diabetic chronic kidney disease; N18.6 End stage renal disease; Z99.2 Dependence on renal dialysis
CPT/HCPCS: 36416; 80053; 85025; 90935; 93005; G0257; J1644

== ENCOUNTER 2021-03-06 10:19 | Emergency (ER) | payer MEDICAID ==
[2021-03-06 12:50] LABS: #Basophils 0.1 thou/uL (0.0-0.2); #Eosinphils 0.4 thou/uL (0.0-0.7); #Lymphocytes 2.2 thou/uL (1.20-3.40); #Monocytes 0.6 thou/uL (0.11-0.59); #Neutrophils 8.8 thou/uL (1.40-6.50); %Basophils 0.6 % (0.0-1.0); %Eosinophils 3.7 % (0.0-10.0); %Lymphocytes 18.1 % (21.0-51.0); %Monocytes 4.7 % (0.0-10.0); Hemoglobin 9.5 g/dL (12.0-16.0); Mean Corpuscular HGB CONC 34.8 g/dL (32.0-36.0); Mean Corpuscular Volume 91.8 fL (78.0-98.0); Mean Platelet Volume 7.1 fL (7.4-10.4); Platelet Count 326 thou/uL (130-400); RBC Distribution Width 12.7 % (11.5-14.5); Red Blood Cell (RBC) Count 2.96 mill/uL (4.20-5.40)
[2021-03-06 13:19] LABS: Anion Gap 14 mmol/L (10-20); BUN (Urea Nitrogen) 65 mg/dL (7.0-18.7); Calc. Creatinine Clearance 0 mL/min (70-130); Calcium 9.1 mg/dL (7.8-10.44); Carbon Dioxide 20 mmol/L (22-29); Chloride 104 mmol/L (98-107); Glucose 272 mg/dL (70-105); Sodium 133 mmol/L (136-145)
[2021-03-06] MEDS ORDERED: EPOETIN ALFA-EPBX (ESRD) 4,000 UNIT/ML VIAL IVP SCH (17:15)
== END 2021-03-06 19:16 | disposition home or self-care (01) ==
LOC: ERS 10:19
DX: I12.0 Hypertensive chronic kidney disease with stage 5 chronic kidney disease or end stage renal disease (principal); N18.6 End stage renal disease; E11.22 Type 2 diabetes mellitus with diabetic chronic kidney disease; E87.70 Fluid overload, unspecified; Z79.4 Long term (current) use of insulin; Z79.899 Other long term (current) drug therapy
CPT/HCPCS: 36415; 71046; 80048; 85025; 93005; J1644; Q5105

== ENCOUNTER 2021-03-13 11:28 | Emergency (ER) | payer SELFPAY ==
[2021-03-13 12:48] LABS: Anion Gap 13 mmol/L (10-20); BUN (Urea Nitrogen) 60 mg/dL (7.0-18.7); Calc. Creatinine Clearance 0 mL/min (70-130); Calcium 7.7 mg/dL (7.8-10.44); Carbon Dioxide 21 mmol/L (22-29); Chloride 104 mmol/L (98-107); Glucose 316 mg/dL (70-105); Potassium 5.5 mmol/L (3.5-5.1); Sodium 132 mmol/L (136-145)
[2021-03-13 14:02] LABS: #Basophils 0.1 thou/uL (0.0-0.2); #Eosinphils 0.3 thou/uL (0.0-0.7); #Lymphocytes 2.2 thou/uL (1.20-3.40); #Monocytes 0.6 thou/uL (0.11-0.59); #Neutrophils 7.7 thou/uL (1.40-6.50); %Basophils 0.9 % (0.0-1.0); %Eosinophils 2.6 % (0.0-10.0); %Lymphocytes 20.1 % (21.0-51.0); %Monocytes 5.4 % (0.0-10.0); %Neutrophils 71.1 % (42.0-75.0); Hemoglobin 9.7 g/dL (12.0-16.0); Mean Corpuscular HGB CONC 34.5 g/dL (32.0-36.0); Mean Corpuscular Hemoglobin 31.9 pg (27.0-31.0); Mean Corpuscular Volume 92.5 fL (78.0-98.0); Mean Platelet Volume 7.2 fL (7.4-10.4); Platelet Count 321 thou/uL (130-400); RBC Distribution Width 12.7 % (11.5-14.5); Red Blood Cell (RBC) Count 3.03 mill/uL (4.20-5.40); White Blood Cell (WBC) Count 10.8 thou/uL (4.8-10.8)
[2021-03-13] MEDS ORDERED: cloNIDine 0.1 MG TAB ONE (19:30)
== END 2021-03-13 20:50 | disposition home or self-care (01) ==
LOC: ERS 11:28
DX: I12.0 Hypertensive chronic kidney disease with stage 5 chronic kidney disease or end stage renal disease (principal); E11.22 Type 2 diabetes mellitus with diabetic chronic kidney disease; N18.6 End stage renal disease; E87.5 Hyperkalemia; Z99.2 Dependence on renal dialysis
CPT/HCPCS: 71045; 80048; 85025

== ENCOUNTER 2021-03-20 09:46 | Emergency (ER) | payer MEDICAID ==
[2021-03-20] MEDS ORDERED: Ondansetron ODT 4 MG TAB ONE (10:44)
[2021-03-20 10:50] LABS: #Basophils 0.1 thou/uL (0.0-0.2); #Eosinphils 0.3 thou/uL (0.0-0.7); #Lymphocytes 2.6 thou/uL (1.20-3.40); #Monocytes 0.7 thou/uL (0.11-0.59); #Neutrophils 10.3 thou/uL (1.40-6.50); %Basophils 0.7 % (0.0-1.0); %Eosinophils 2.2 % (0.0-10.0); %Lymphocytes 18.9 % (21.0-51.0); %Neutrophils 73.3 % (42.0-75.0); Hemoglobin 10.9 g/dL (12.0-16.0); Mean Corpuscular HGB CONC 32.9 g/dL (32.0-36.0); Mean Corpuscular Volume 91.2 fL (78.0-98.0); Platelet Count 443 thou/uL (130-400); Red Blood Cell (RBC) Count 3.65 mill/uL (4.20-5.40)
[2021-03-20 11:12] LABS: Lipase 101 U/L (8-78); Phosphorus 5.1 mg/dL (2.3-4.7)
[2021-03-20 11:13] LABS: Magnesium 2.1 mg/dL (1.6-2.6)
[2021-03-20 17:06] LABS: HBSAg Index 0.22 S/CO (0-0.99); Hep B Surf Ag Non-Reactive S/CO (NonReactive)
[2021-03-20 18:03] LABS: ALT (SGPT) Less than 7 U/L (8-55); AST (SGOT) 7 U/L (5-34); Albumin 3.8 g/dL (3.5-5.0); Alkaline Phosphatase 72 U/L (40-110); Anion Gap 13 mmol/L (10-20); BUN (Urea Nitrogen) 25 mg/dL (7.0-18.7); Bilirubin, Total 0.3 mg/dL (0.2-1.2); Calc. Creatinine Clearance 0 mL/min (70-130); Calcium 9.2 mg/dL (7.8-10.44); Carbon Dioxide 28 mmol/L (22-29); Chloride 101 mmol/L (98-107); Globulin 3.2 g/dL (2.4-3.5); Glucose 106 mg/dL (70-105); Potassium 3.3 mmol/L (3.5-5.1); Sodium 139 mmol/L (136-145)
== END 2021-03-20 17:42 | disposition home or self-care (01) ==
LOC: ERS 09:46
DX: I12.0 Hypertensive chronic kidney disease with stage 5 chronic kidney disease or end stage renal disease (principal); E11.22 Type 2 diabetes mellitus with diabetic chronic kidney disease; N18.6 End stage renal disease; K85.90 Acute pancreatitis without necrosis or infection, unspecified; Z99.2 Dependence on renal dialysis; Z79.4 Long term (current) use of insulin; Z79.899 Other long term (current) drug therapy
CPT/HCPCS: 36415; 80053; 83690; 83735; 84100; 85025; 87340; 93005; Q0162

== ENCOUNTER 2021-03-21 15:09 | Emergency (ER) | payer MEDICAID ==
[2021-03-21 15:41] LABS: #Basophils 0.1 thou/uL (0.0-0.2); #Eosinphils 0.2 thou/uL (0.0-0.7); #Lymphocytes 2.6 thou/uL (1.20-3.40); #Monocytes 0.8 thou/uL (0.11-0.59); #Neutrophils 8.3 thou/uL (1.40-6.50); %Basophils 0.7 % (0.0-1.0); %Eosinophils 1.5 % (0.0-10.0); %Monocytes 6.7 % (0.0-10.0); %Neutrophils 69.1 % (42.0-75.0); Hemoglobin 11.2 g/dL (12.0-16.0); Mean Corpuscular HGB CONC 33.5 g/dL (32.0-36.0); Mean Corpuscular Hemoglobin 31.1 pg (27.0-31.0); Mean Corpuscular Volume 92.8 fL (78.0-98.0); Mean Platelet Volume 6.8 fL (7.4-10.4); Platelet Count 439 thou/uL (130-400); RBC Distribution Width 12.2 % (11.5-14.5); Red Blood Cell (RBC) Count 3.62 mill/uL (4.20-5.40)
[2021-03-21 15:58] LABS: Albumin 3.9 g/dL (3.5-5.0)
[2021-03-21 15:59] LABS: Chloride 97 mmol/L (98-107); Potassium 4.3 mmol/L (3.5-5.1); Sodium 135 mmol/L (136-145)
[2021-03-21 16:00] LABS: Calcium 9.7 mg/dL (7.8-10.44)
[2021-03-21 16:01] LABS: Globulin 3.5 g/dL (2.4-3.5); Protein, Total 7.4 g/dL (6.0-8.3)
[2021-03-21 16:02] LABS: Anion Gap 14 mmol/L (10-20); Bilirubin, Total 0.4 mg/dL (0.2-1.2); Carbon Dioxide 28 mmol/L (22-29)
[2021-03-21 16:04] LABS: Alkaline Phosphatase 69 U/L (40-110); Calc. Creatinine Clearance 0 mL/min (70-130); Glucose 273 mg/dL (70-105)
[2021-03-21 16:05] LABS: BUN (Urea Nitrogen) 30 mg/dL (7.0-18.7)
[2021-03-21 16:13] LABS: ALT (SGPT) Less than 7 U/L (8-55); AST (SGOT) 8 U/L (5-34)
== END 2021-03-21 18:19 | disposition home or self-care (01) ==
LOC: ERS 15:09
DX: R19.7 Diarrhea, unspecified (principal); I12.0 Hypertensive chronic kidney disease with stage 5 chronic kidney disease or end stage renal disease; E11.22 Type 2 diabetes mellitus with diabetic chronic kidney disease; N18.6 End stage renal disease; Z99.2 Dependence on renal dialysis; Z79.899 Other long term (current) drug therapy
CPT/HCPCS: 36415; 71045; 80053; 83690; 85025; 93005; 96372; J0500

== ENCOUNTER 2021-03-28 09:07 | Day surgery (SDC) | payer OTHER ==
[2021-03-28 11:33] VITALS: BP 153/72; TEMP 98.4
[2021-03-28] MEDS ORDERED: Heparin 1,000 UNITS/ML VIAL ONE (14:27)
== END 2021-03-28 12:00 | disposition home or self-care (01) ==
LOC: SPEC 09:07
PROVIDERS: ATTEND Specialist
PROC: B51W1ZZ Fluoroscopy of Dialysis Shunt/Fistula using Low Osmolar Contrast (ICD-10-PCS; principal; 2021-03-28)
DX: T82.590A Other mechanical complication of surgically created arteriovenous fistula, initial encounter (principal); I12.0 Hypertensive chronic kidney disease with stage 5 chronic kidney disease or end stage renal disease; E11.22 Type 2 diabetes mellitus with diabetic chronic kidney disease; N18.6 End stage renal disease; E66.9 Obesity, unspecified; Z99.2 Dependence on renal dialysis; Z88.5 Allergy status to narcotic agent
CPT/HCPCS: 36901; J1644

== ENCOUNTER 2023-04-12 10:20 | Emergency (ER) | payer BC ==
[~2023-04-12 10:20] MED LIST changes: -Heparin 10,000 UNITS/ 10 ML VIAL ONE; +Iopamidol-370 76% 500 ML MDV (1 ML CHARGE) ONE
[2023-04-12 11:07] LABS: #Basophils 0.1 thou/uL (0.0-0.2); #Eosinphils 0.1 thou/uL (0.0-0.7); #Monocytes 0.6 thou/uL (0.11-0.59); #Neutrophils 12.8 thou/uL (1.40-6.50); %Basophils 0.5 % (0.0-1.0); %Eosinophils 0.6 % (0.0-10.0); %Lymphocytes 12.1 % (21.0-51.0); %Monocytes 3.8 % (0.0-10.0); %Neutrophils 82.1 % (42.0-75.0); Hematocrit 37.8 % (36.0-47.0); Hemoglobin 13.1 g/dL (12.0-16.0); Mean Corpuscular HGB CONC 34.7 g/dL (32.0-36.0); Mean Corpuscular Hemoglobin 33.9 pg (27.0-31.0); Mean Corpuscular Volume 97.7 fl (78.0-98.0); Mean Platelet Volume 9.2 fL (7.4-10.4); Platelet Count 297 10x3/uL (130-400); RBC Distribution Width 15.7 % (11.5-14.5); Red Blood Cell (RBC) Count 3.87 mill/uL (4.20-5.40); White Blood Cell (WBC) Count 15.6 10x3/uL (4.8-10.8)
[2023-04-12] MEDS ORDERED: LORazepam 2 MG/ML SYR.(CARPUJECT) ONE (11:10)
[2023-04-12] MEDS ORDERED: Famotidine/PF 20 mg/2ml Vial ONE (11:10)
[2023-04-12] MEDS ORDERED: Acetaminophen 500 MG TAB ONE (11:10)
[2023-04-12] MEDS ORDERED: Mag-Al 1200 mg/1200 mg/30 ML UDCUP ONE (11:10)
[2023-04-12] MEDS ORDERED: Ondansetron PF 4 MG/2 ML Vial ONE (11:10)
[2023-04-12 11:41] LABS: ALT (SGPT) 10 U/L (8-55); AST (SGOT) 10 U/L (5-34); Albumin 4.6 g/dL (3.5-5.0); Alkaline Phosphatase 81 U/L (40-110); Anion Gap 22 mmol/L (10-20); BUN (Urea Nitrogen) 60 mg/dL (7.0-18.7); Bilirubin, Total 0.5 mg/dL (0.2-1.2); Calc. Creatinine Clearance 0 mL/min (70-130); Calcium 9.5 mg/dL (7.8-10.44); Carbon Dioxide 21 mmol/L (22-29); Chloride 93 mmol/L (98-107); Estimated GFR 4; Globulin 3.3 g/dL (2.4-3.5); Glucose 236 mg/dL (70-105); Lipase 69 U/L (8-78); Potassium 4.8 mmol/L (3.5-5.1); Protein, Total 7.9 g/dL (6.0-8.3); Sodium 131 mmol/L (136-145)
[2023-04-12 11:45] LABS: Troponin I 0.013 ng/mL (< 0.028)
== END 2023-04-12 14:01 | disposition home or self-care (01) ==
LOC: ERS 10:20
DX: N83.202 Unspecified ovarian cyst, left side (principal); E11.22 Type 2 diabetes mellitus with diabetic chronic kidney disease; N18.6 End stage renal disease; I12.0 Hypertensive chronic kidney disease with stage 5 chronic kidney disease or end stage renal disease; Z99.2 Dependence on renal dialysis; Z79.899 Other long term (current) drug therapy
CPT/HCPCS: 36415; 71045; 74177; 80053; 83690; 84484; 85025; 93005; 96374; 96375; J2060; J2405; Q9967; S0028

== ENCOUNTER 2024-06-24 10:58 | Emergency (ER) | payer BC ==
[2024-06-24] MEDS ORDERED: Acetaminophen 500 MG TAB ONE (11:53)
== END 2024-06-24 12:53 | disposition home or self-care (01) ==
LOC: ERS 10:58
DX: J10.1 Influenza due to other identified influenza virus with other respiratory manifestations (principal); I12.0 Hypertensive chronic kidney disease with stage 5 chronic kidney disease or end stage renal disease; E11.22 Type 2 diabetes mellitus with diabetic chronic kidney disease; N18.6 End stage renal disease; Z99.2 Dependence on renal dialysis; Z79.899 Other long term (current) drug therapy
CPT/HCPCS: 71045; 87428; 93005